=== PATIENT | male | born 1950 | race Caucasian/White ===

== ENCOUNTER 2019-05-07 16:27 | Inpatient (IN) | payer MEDICARE, OTHER ==
[2019-05-07] MEDS ORDERED: IPRATROPIUM-ALBUTEROL 3 ML NEB INHALATION STA (16:32)
[2019-05-07] MEDS ORDERED: LORazepam 2 MG/ML INJ IV STA (16:32)
--- NOTE | 2019-05-07 16:35 | ED ---
General Adult HPI - General Stated complaint: JHON Time Seen by Provider: 05/07/19 16:27 Source: RN notes reviewed - History of Present Illness Initial comments: This is a 61-year-old male who presents emergency room with past medical history significant for COPD per patient states he continues to smoke. Patient states on Tuesday started having difficulty breathing and difficulty breathing is gotten progressively worse per patient states he has a cough but is no worse than it normally is. Patient states is no sputum production. Patient denies any fever chills per patient denies any chest pain palpitations patient denies any abdominal pain patient denies any nausea vomiting per patient denies any lightheadedness or dizziness. Patient with Dr. Frausto's office today and he was having a hard time breathing and he started to panic that point time and they called EMS to bring him into the emergency department. Patient received 2 breathing treatments steroids on the way in and he states he is feeling better though he is very anxious. Patient states he normally does not have a history of anxiety. - Related Data Home Medications Medication Instructions Recorded Confirmed Albuterol Inhaler [Ventolin Hfa 1 - 2 puff INHALATION RT-Q4H PRN 05/07/19 05/07/19 Inhaler] Albuterol Nebulized [Ventolin 2.5 mg INHALATION RT-QID PRN 05/07/19 05/07/19 Nebulized] Aspirin EC [Ecotrin Low Dose] 81 mg PO DAILY 05/07/19 05/07/19 Budesonide/Formoterol Fumarate 2 puff INHALATION RT-BID 05/07/19 05/07/19 [Symbicort 160-4.5 Mcg Inhaler] Insulin Degludec [Tresiba 18 units SQ DAILY 05/07/19 05/07/19 Flextouch U-100] Losartan [Cozaar] 25 mg PO DAILY 05/07/19 05/07/19 Simvastatin [Zocor] 40 mg PO HS 05/07/19 05/07/19 Tadalafil [Cialis] 20 mg PO DIRECTED PRN 05/07/19 05/07/19 Triamcinolone 0.1% Cream [Kenalog 1 applic TOPICAL BID PRN 05/07/19 05/07/19 0.1% Cream] Allergies Allergy/AdvReac Type Severity Reaction Status Date / Time No Known Allergies Allergy Verified 05/07/19 17:20 Review of Systems ROS Statement: Those systems with pertinent positive or pertinent negative responses have been documented in the HPI. ROS Other: All systems not noted in ROS Statement are negative. General Exam - General Exam Comments Initial Comments: GENERAL: Patient is well-developed and well-nourished. Patient is nontoxic and well- hydrated and is in mild distress. ENT: Neck is soft and supple. No significant lymphadenopathy is noted. Oropharynx is clear. Moist mucous membranes. Neck has full range of motion without eliciting any pain. EYES: The sclera were anicteric and conjunctiva were pink and moist. Extraocular movements were intact and pupils were equal round and reactive to light. Eyelids were unremarkable. PULMONARY: Decreased breath sounds with some expiratory wheezing CARDIOVASCULAR: There is a regular rate and rhythm without any murmurs gallops or rubs. ABDOMEN: Soft and nontender with normal bowel sounds. No palpable organomegaly was noted. There is no palpable pulsatile mass. SKIN: Skin is clear with no lesions or rashes and otherwise unremarkable. NEUROLOGIC: Patient is alert and oriented x3. Cranial nerves II through XII are grossly intact. Motor and sensory are also intact. Normal speech, volume and content. Symmetrical smile. MUSCULOSKELETAL: Normal extremities with adequate strength and full range of motion. No lower extremity swelling or edema. No calf tenderness. LYMPHATICS: No significant lymphadenopathy is noted PSYCHIATRIC: Patient is very anxious Course Vital Signs 05/07/19 05/07/19 05/07/19 16:38 16:50 16:58 Temperature 98.5 F Pulse Rate 79 82 Respiratory 24 22 Rate Blood Pressure 168/96 O2 Sat by Pulse 94 L Oximetry 05/07/19 17:04 Temperature Pulse Rate 86 Respiratory Rate Blood Pressure O2 Sat by Pulse Oximetry Medical Decision Making - Medical Decision Making EKG shows no sinus rhythm at 82 bpm AR interval 238 QRS is 92 QT interval 378 QTC is 441 per patient's EKG shows no ST segment elevation or depression or T wave abnormalities are noted. I discussed smoking cessation for greater than 3 minutes. The risks of smoking were discussed with the patient including but not limited to risks of cancer, stroke, coronary artery disease and COPD. Also discussed with the patient were multiple methods of quitting smoking. Lastly we discussed the financial costs of smoking. Chest x-ray showed no acute normalities. New. Patient received breathing treatments emergency department and some steroids and was doing considerably better. I spoke with Dr. Jett Frausto agreed that the patient should be admitted overnight and get some fluids to help with his hyponatremia - Lab Data Result diagrams: 05/07/19 16:36 05/07/19 16:36 Lab Results 05/07/19 05/07/19 05/07/19 Range/Units 16:36 16:36 16:36 WBC 6.9 (3.8-10.6) k/uL RBC 4.51 (4.30-5.90) m/uL Hgb 14.4 (13.0-17.5) gm/dL Hct 43.1 (39.0-53.0) % MCV 95.4 (80.0-100.0) fL MCH 31.8 (25.0-35.0) pg MCHC 33.4 (31.0-37.0) g/dL RDW 13.3 (11.5-15.5) % Plt Count 218 (150-450) k/uL Neutrophils % 72 % Lymphocytes % 13 % Monocytes % 9 % Eosinophils % 2 % Basophils % 1 % Neutrophils # 5.0 (1.3-7.7) k/uL Lymphocytes # 0.9 L (1.0-4.8) k/uL Monocytes # 0.6 (0-1.0) k/uL Eosinophils # 0.1 (0-0.7) k/uL Basophils # 0.1 (0-0.2) k/uL PT 9.7 (9.0-12.0) sec INR 0.9 (<1.2) APTT 30.3 H (22.0-30.0) sec Sodium 125 L (137-145) mmol/L Potassium 4.7 (3.5-5.1) mmol/L Chloride 86 L (98-107) mmol/L Carbon Dioxide 27 (22-30) mmol/L Anion Gap 12 mmol/L BUN 12 (9-20) mg/dL Creatinine 0.60 L (0.66-1.25) mg/dL Est GFR (CKD-EPI)AfAm >90 (>60 ml/min/1.73 sqM) Est GFR (CKD-EPI)NonAf >90 (>60 ml/min/1.73 sqM) Glucose 126 H (74-99) mg/dL Calcium 9.2 (8.4-10.2) mg/dL Magnesium 2.0 (1.6-2.3) mg/dL Total Bilirubin 0.5 (0.2-1.3) mg/dL AST 34 (17-59) U/L ALT 29 (21-72) U/L Alkaline Phosphatase 72 (38-126) U/L Troponin I (0.000-0.034) ng/mL Total Protein 7.1 (6.3-8.2) g/dL Albumin 4.4 (3.5-5.0) g/dL 05/07/19 Range/Units 16:36 WBC (3.8-10.6) k/uL RBC (4.30-5.90) m/uL Hgb (13.0-17.5) gm/dL Hct (39.0-53.0) % MCV (80.0-100.0) fL MCH (25.0-35.0) pg MCHC (31.0-37.0) g/dL RDW (11.5-15.5) % Plt Count (150-450) k/uL Neutrophils % % Lymphocytes % % Monocytes % % Eosinophils % % Basophils % % Neutrophils # (1.3-7.7) k/uL Lymphocytes # (1.0-4.8) k/uL Monocytes # (0-1.0) k/uL Eosinophils # (0-0.7) k/uL Basophils # (0-0.2) k/uL PT (9.0-12.0) sec INR (<1.2) APTT (22.0-30.0) sec Sodium (137-145) mmol/L Potassium (3.5-5.1) mmol/L Chloride (98-107) mmol/L Carbon Dioxide (22-30) mmol/L Anion Gap mmol/L BUN (9-20) mg/dL Creatinine (0.66-1.25) mg/dL Est GFR (CKD-EPI)AfAm (>60 ml/min/1.73 sqM) Est GFR (CKD-EPI)NonAf (>60 ml/min/1.73 sqM) Glucose (74-99) mg/dL Calcium (8.4-10.2) mg/dL Magnesium (1.6-2.3) mg/dL Total Bilirubin (0.2-1.3) mg/dL AST (17-59) U/L ALT (21-72) U/L Alkaline Phosphatase (38-126) U/L Troponin I <0.012 (0.000-0.034) ng/mL Total Protein (6.3-8.2) g/dL Albumin (3.5-5.0) g/dL Disposition Clinical Impression: COPD with acute exacerbation Disposition: ADMITTED IP TO THIS HOSP Referrals: Sadiq Frausto MD [Primary Care Provider] - 1-2 days Time of Disposition: 18:58
[2019-05-07 16:46] LABS: Basophils # (A) 0.1 k/uL (0-0.2); Basophils % (A) 1 %; Eosinophils # (A) 0.1 k/uL (0-0.7); Eosinophils % (A) 2 %; HCT 43.1 % (39.0-53.0); HGB 14.4 gm/dL (13.0-17.5); Lymphocytes # (A) 0.9 k/uL (1.0-4.8); Lymphocytes % (A) 13 %; MCH 31.8 pg (25.0-35.0); MCHC 33.4 g/dL (31.0-37.0); MCV 95.4 fL (80.0-100.0); Mean Platelet Volume 6.8; Monocytes # (A) 0.6 k/uL (0-1.0); Monocytes % (A) 9 %; Neutrophils % (A) 72 %; Platelet Count 218 k/uL (150-450); RBC 4.51 m/uL (4.30-5.90); RDW 13.3 % (11.5-15.5); WBC 6.9 k/uL (3.8-10.6)
[2019-05-07 16:52] LABS: INR 0.9 (<1.2); Partial Thromboplastin Time 30.3 sec (22.0-30.0); Prothrombin Time 9.7 sec (9.0-12.0)
[2019-05-07 16:53] LABS: ALT 29 U/L (21-72); AST 34 U/L (17-59); African American GFR (CKD) >90 (>60 ml/min/1.73 sqM); Albumin 4.4 g/dL (3.5-5.0); Alkaline Phosphatase 72 U/L (38-126); Anion Gap 12 mmol/L; Blood Urea Nitrogen 12 mg/dL (9-20); Calcium 9.2 mg/dL (8.4-10.2); Carbon Dioxide 27 mmol/L (22-30); Chloride 86 mmol/L (98-107); Glucose 126 mg/dL (74-99); Potassium 4.7 mmol/L (3.5-5.1); Sodium 125 mmol/L (137-145); Total Bilirubin 0.5 mg/dL (0.2-1.3); Total Protein 7.1 g/dL (6.3-8.2)
--- NOTE | 2019-05-07 17:26 | XR ---
EXAMINATION TYPE: XR chest 2V DATE OF EXAM: 05/07/2019 COMPARISON: NONE HISTORY: Difficulty breathing TECHNIQUE: Frontal and lateral views of the chest are obtained. FINDINGS: Heart and mediastinum are normal. Lungs are clear of consolidation. There are no hilar mas ses. Costophrenic angles are clear. There are chest leads. IMPRESSION: No active cardiopulmonary disease. Normal heart.
[2019-05-07] MEDS: methylPREDNISolone SOD SUCCI 125 MG/2 ML VIAL IV SCH (23:26)
[2019-05-07 23:43] VITALS: BMI 24.7
--- NOTE | 2019-05-08 06:54 | P.HPIM ---
History of Present Illness H&P Date: 05/08/19 Chief Complaint: Dyspnea This is an admission history and physical on a 69-year-old white male with history of worsening emphysema. He came in to the office yesterday with pulse oximetry of 77% on room air. After evaluation in the emergency room the patient is admitted for COPD. The patient is now been stabilized and only has significant dyspnea on exertion. This is been happening for the last 3-4 days. No nausea, vomiting or diarrhea stated. Low-grade fever is stated. Significant anxiety is also noted. Review of Systems Constitutional: Denies chills, Denies fever Ears, nose, mouth and throat: Denies headache, Denies sore throat Respiratory: Reports cough, Reports dyspnea, Reports wheezing Gastrointestinal: Denies abdominal pain, Denies diarrhea, Denies nausea, Denies vomiting Musculoskeletal: Denies myalgias Integumentary: Denies pruritus, Denies rash Neurological: Denies numbness, Denies weakness Past Medical History Past Medical History: COPD, Diabetes Mellitus, Hyperlipidemia, Hypertension, Myocardial Infarction ([place]) Last Myocardial Infarction Date:: 2007 History of Any Multi-Drug Resistant Organisms: None Reported Past Surgical History: Heart Catheterization With Stent Additional Past Surgical History / Comment(s): bilateral shoulder, Date of Last Stent Placement:: 2007 Past Psychological History: No Psychological Hx Reported Smoking Status: Current every day smoker Past Alcohol Use History: Daily, Heavy Past Drug Use History: None Reported Medications and Allergies Home Medications Medication Instructions Recorded Confirmed Type Albuterol Inhaler [Ventolin Hfa 1 - 2 puff INHALATION RT-Q4H PRN 05/07/19 05/07/19 History Inhaler] Albuterol Nebulized [Ventolin 2.5 mg INHALATION RT-QID PRN 05/07/19 05/07/19 History Nebulized] Aspirin EC [Ecotrin Low Dose] 81 mg PO DAILY 05/07/19 05/07/19 History Budesonide/Formoterol Fumarate 2 puff INHALATION RT-BID 05/07/19 05/07/19 History [Symbicort 160-4.5 Mcg Inhaler] Insulin Degludec [Tresiba 18 units SQ DAILY 05/07/19 05/07/19 History Flextouch U-100] Losartan [Cozaar] 25 mg PO DAILY 09/23/19 09/23/19 History Simvastatin [Zocor] 40 mg PO HS 05/07/19 05/07/19 History Tadalafil [Cialis] 20 mg PO DIRECTED PRN 05/07/19 05/07/19 History Triamcinolone 0.1% Cream [Kenalog 1 applic TOPICAL BID PRN 05/07/19 05/07/19 History 0.1% Cream] Allergies Allergy/AdvReac Type Severity Reaction Status Date / Time No Known Allergies Allergy Verified 05/07/19 17:20 Physical Exam Vitals: Vital Signs Temp Pulse Pulse Resp BP BP Pulse Ox 05/08/19 06:10 98 F 89 18 156/93 96 05/08/19 04:37 131/73 96 05/08/19 03:00 90 18 164/79 96 05/07/19 23:44 89 20 05/07/19 21:00 98.7 F 89 20 182/90 94 L 05/07/19 19:45 99.5 F 82 18 157/89 94 L 05/07/19 19:00 82 18 94 L 05/07/19 17:04 86 05/07/19 16:58 82 05/07/19 16:50 22 05/07/19 16:38 98.5 F 79 24 168/96 94 L Intake and Output 05/07/19 05/07/19 05/08/19 14:59 22:59 06:59 Intake Total 660 Balance 660 Intake: Oral 660 Other: Voiding Method Urinal Weight 85.275 kg - Constitutional General appearance: mild distress - EENT Eyes: EOMI - Neck Neck: no lymphadenopathy - Respiratory Respiratory: bilateral: diminished - Cardiovascular Rhythm: regular Heart sounds: normal: S1, S2 Abnormal Heart Sounds: no S3 Gallop - Gastrointestinal General gastrointestinal: soft, no tenderness - Integumentary Integumentary: no cellulitis, no cyanotic - Neurologic Neurologic: CNII-XII intact - Musculoskeletal Musculoskeletal: gait normal - Psychiatric Psychiatric: A&O x's 3, appropriate affect Results CBC & Chem 7: 05/07/19 16:36 05/07/19 16:36 Labs: Abnormal Lab Results - Last 24 Hours (Table) 05/07/19 05/07/19 05/07/19 Range/Units 16:36 16:36 16:36 Lymphocytes # 0.9 L (1.0-4.8) k/uL APTT 30.3 H (22.0-30.0) sec Sodium 125 L (137-145) mmol/L Chloride 86 L (98-107) mmol/L Creatinine 0.60 L (0.66-1.25) mg/dL Glucose 126 H (74-99) mg/dL Thrombosis Risk Factor Assmnt - Choose All That Apply Any of the Below Risk Factors Present?: Yes Each Factor Represents 1 point: Abnormal pulmonary function (COPD) Other Risk Factors: Yes Each Risk Factor Represents 2 Points: Age 61-74 years Other congenital or acquired thrombophilia - If yes, enter type in comment: No Thrombosis Risk Factor Assessment Total Risk Factor Score: 3 Thrombosis Risk Factor Assessment Level: Moderate Risk Assessment and Plan (1) Acute stress reaction Current Visit: Yes Status: Acute Code(s): F43.0 - ACUTE STRESS REACTION SNOMED Code(s): 42430337 (2) Hypertension Current Visit: Yes Status: Acute Code(s): I10 - ESSENTIAL (PRIMARY) HYPERTENSION SNOMED Code(s): 57905701 (3) Diabetes Current Visit: Yes Status: Acute Code(s): E11.9 - TYPE 2 DIABETES MELLITUS WITHOUT COMPLICATIONS SNOMED Code(s): 63248598 (4) COPD with acute exacerbation Current Visit: Yes Status: Acute Code(s): J44.1 - CHRONIC OBSTRUCTIVE PULMONARY DISEASE W (ACUTE) EXACERBATION SNOMED Code(s): 106708371 Plan: Reconcile medications. Pulmonary nodule to be consulted. Check CBC and CMP in a.m. Place on appropriate sliding scale. Element of hyponatremia. Check urine osmolality and serum osmolality. Time with Patient: Greater than 30
[2019-05-08 07:30] LABS: Glucose,Whole Blood 232 mg/dL (75-99)
[2019-05-08] MEDS: IPRATROPIUM-ALBUTEROL 3 ML NEB INHALATION PRN ×3 (07:31→23:41)
[2019-05-08] MEDS: INSULIN ASPART (NovoLOG) 100 UNIT/ML VIAL SQ SCH ×3 (07:50→18:42)
[2019-05-08] MEDS: methylPREDNISolone SOD SUCCI 125 MG/2 ML VIAL IV SCH ×4 (07:51→23:50)
[2019-05-08] MEDS ORDERED: LORazepam 2 MG/ML INJ IV PRN ×3 (08:51)
[2019-05-08] MEDS: LOSARTAN 25 MG TAB PO SCH (10:13)
[2019-05-08] MEDS: ASPIRIN 81 MG PO SCH (10:13)
[2019-05-08 12:04] LABS: Glucose,Whole Blood 344 mg/dL (75-99)
[2019-05-08] MEDS: INSULIN DETEMIR (LEVEMIR) 100 UNIT/ML SYR SQ SCH (12:15)
--- NOTE | 2019-05-08 13:06 | P.CRDCN ---
History of Present Illness History of present illness: This is a pleasant 61-year-old male past medical history significant for coronary artery disease status post stent placement to the proximal RCA in 2008, hypertension, dyslipidemia, diabetes mellitus, COPD, chronic nicotine dependence and regular daily alcohol intake. He has followed in the office in the past with Dr. Carty however has not been to the office since 2016. He u nderwent cardiac catheterization in 2008 which revealed left main with no significant disease, LAD with no significant disease, circumflex with no significant disease and a 40-50% in-stent restenosis of the previously stented midportion of the RCA. We have been asked to see him in consultation secondary to shortness of breath. He was in his primary care physician's office yesterday and was noted to have a pulse ox of 77% on room air. He was sent to the hospital and underwent breathing treatments as well as steroids. He states that did mildly helped but he continued to have shortness of breath. He denies associated chest discomfort, nausea, vomiting, palpitations or dizziness. He does state over the previous few months he has noticed increasing fatigue and he is taking more frequent naps. His exertional tolerance has diminished as well. He states he does continue to smoke and drink daily. He continues to feel short of breath at the time of my exam. EKG reveals right bundle branch block pattern with no acute ST or T wave abnormalities noted. Chest x-ray negative for an acute cardiopulmonary process. Laboratory data reviewed, CBC unremarkable, sodium 125, potassium 4.7, crea tinine 0.6, magnesium 2.0, cardiac enzymes negative 1. Current daily cardiac medications include aspirin 81 mg daily, losartan 25 mg daily and simvastatin 40 mg daily. At the time of my exam: CONSTITUTIONAL: Denies fever. Denies chills. EYES: Denies blurred vision. Denies vision changes. Denies eye pain. EARS, NOSE, MOUTH & THROAT: Denies headache. Denies sore throat. Denies ear pain. CARDIOVASCULAR: Denies chest pain. Complains of shortness of breath. Denies orthopnea. Denies PND. Denies palpitations. RESPIRATORY: Complains of cough. GASTROINTESTINAL: Denies abdominal pain. Denies diarrhea. Denies constipation. Denies nausea. Denies vomiting. MUSCULOSKELETAL: Denies myalgias. INTEGUMENTARY: Denies pruitis. Denies rash. NEUROLOGIC: Denies numbness. Denies tingling. Denies weakness. Complains of increased fatigue over the previous couple of weeks. PSYCHIATRIC: Denies anxiety. Denies depression. ENDOCRINE: Denies fatigue. Denies weight change. Denies polydipsia. Denies polyurina. GENITOURINARY: Denies burning, hematuria or urgency with micturation. HEMATOLOGIC: Denies history of anemia. Denies bleeding. Blood pressure 156/93 heart rate 92 afebrile maintaining oxygen saturation on nasal cannula GENERAL: This is a 69-year-old male in no apparent distress at the maegan e of my examination. HEENT: Head is atraumatic, normocephalic. Pupils are equal, round. Sclerae anic teric. Conjunctivae are clear. Mucous membranes of the mouth are moist. Neck is supple. There is no jugular venous distention. No carotid bruit is heard. LUNGS: Scattered rhonchi, diminished bilaterally faint expiratory wheeze. No ralesi. No chest wall tenderness is noted on palpation or with deep breathing. HEART: Regular rate and rhythm without murmurs, rubs or gallops. S1 and S2 heard. ABDOMEN: Soft, nontender. Bowel sounds are heard. No organomegaly noted. EXTREMITIES: No evidence of peripheral edema and no calf tenderness noted. VASCULAR: Radial and dorsalis pedis pulses palpated, no evidence of clubbing. NEUROLOGIC: Patient is awake, alert and oriented x3. ASSESSMENT Increasing shortness of breath, clinically euvolemic with no evidence to suggest heart failure exacerbation. Likely related to underlying COPD. Acute exacerbation of chronic COPD Hyponatremia History of coronary artery disease status post stent placement 2008 Hypertension Dyslipidemia Diabetes mellitus, uncontrolled PLAN Check lipid profile and second troponin to rule out an acute event. Obtain 2-D echocardiogram and Doppler study to assess cardiac structure and function. Ongoing medical management. Alcohol and smoking cessation recommended and discussed with the patient and his daughter. Prognosis guarded if he continues to abuse these two things. Thank you kindly for this consultation. Nurse Practitioner note has been reviewed, I agree with a documented findings and plan of care. Patient was seen and examined. Past Medical History Past Medical History: COPD, Diabetes Mellitus, Hyperlipidemia, Hypertension, Myocardial Infarction ([place]) Last Myocardial Infarction Date:: 2007 History of Any Multi-Drug Resistant Organisms: None Reported Past Surgical History: Heart Catheterization With Stent Additional Past Surgical History / Comment(s): bilateral shoulder, Date of Last Stent Placement:: 2007 Past Psychological History: No Psychological Hx Reported Smoking Status: Current every day smoker Past Alcohol Use History: Daily, Heavy Past Drug Use History: None Reported Medications and Allergies Home Medications Medication Instructions Recorded Confirmed Type Albuterol Inhaler [Ventolin Hfa 1 - 2 puff INHALATION RT-Q4H PRN 05/07/19 05/07/19 History Inhaler] Albuterol Nebulized [Ventolin 2.5 mg INHALATION RT-QID PRN 05/07/19 05/07/19 History Nebulized] Aspirin EC [Ecotrin Low Dose] 81 mg PO DAILY 05/07/19 05/07/19 History Budesonide/Formoterol Fumarate 2 puff INHALATION RT-BID 05/07/19 05/07/19 History [Symbicort 160-4.5 Mcg Inhaler] Insulin Degludec [Tresiba 18 units SQ DAILY 05/07/19 05/07/19 History Flextouch U-100] Losartan [Cozaar] 25 mg PO DAILY 05/07/19 05/07/19 History Simvastatin [Zocor] 40 mg PO HS 05/07/19 05/07/19 History Tadalafil [Cialis] 20 mg PO DIRECTED PRN 05/07/19 05/07/19 History Triamcinolone 0.1% Cream [Kenalog 1 applic TOPICAL BID PRN 05/07/19 05/07/19 History 0.1% Cream] Allergies Allergy/AdvReac Type Severity Reaction Status Date / Time No Known Allergies Allergy Verified 05/07/19 17:20 Physical Exam Vitals: Vital Signs Temp Pulse Pulse Resp BP BP Pulse Ox 05/08/19 07:42 92 05/08/19 07:31 88 05/08/19 06:10 98 F 89 18 156/93 96 05/08/19 04:37 131/73 96 05/08/19 03:00 90 18 164/79 96 05/07/19 23:44 89 20 05/07/19 21:00 98.7 F 89 20 182/90 94 L 05/07/19 19:45 99.5 F 82 18 157/89 94 L 05/07/19 19:00 82 18 94 L 05/07/19 17:04 86 05/07/19 16:58 82 05/07/19 16:50 22 05/07/19 16:38 98.5 F 79 24 168/96 94 L Intake and Output 05/07/19 05/08/19 05/08/19 22:59 06:59 14:59 Intake Total 660 Balance 660 Intake: Oral 660 Other: Voiding Method Urinal Weight 85.275 kg Results 05/07/19 16:36 05/07/19 16:36 Cardiac Enzymes 05/07/19 05/07/19 Range/Units 16:36 16:36 AST 34 (17-59) U/L Troponin I <0.012 (0.000-0.034) ng/mL Coagulation 05/07/19 Range/Units 16:36 PT 9.7 (9.0-12.0) sec APTT 30.3 H (22.0-30.0) sec CBC 05/07/19 Range/Units 16:36 WBC 6.9 (3.8-10.6) k/uL RBC 4.51 (4.30-5.90) m/uL Hgb 14.4 (13.0-17.5) gm/dL Hct 43.1 (39.0-53.0) % Plt Count 218 (150-450) k/uL Comprehensive Metabolic Panel 05/07/19 Range/Units 16:36 Sodium 125 L (137-145) mmol/L Potassium 4.7 (3.5-5.1) mmol/L Chloride 86 L (98-107) mmol/L Carbon Dioxide 27 (22-30) mmol/L BUN 12 (9-20) mg/dL Creatinine 0.60 L (0.66-1.25) mg/dL Glucose 126 H (74-99) mg/dL Calcium 9.2 (8.4-10.2) mg/dL AST 34 (17-59) U/L ALT 29 (21-72) U/L Alkaline Phosphatase 72 (38-126) U/L Total Protein 7.1 (6.3-8.2) g/dL Albumin 4.4 (3.5-5.0) g/dL Current Medications Generic Name Dose Route Start Last Admin Trade Name Freq PRN Reason Stop Dose Admin Albuterol/Ipratropium 3 ml 05/07/19 18:59 05/08/19 07:31 Duoneb 0.5 Mg-3 Mg/3 Ml Soln INHALATION 3 ml RT-Q4H PRN Administration Shortness Of Breath Or Wheezing Aspirin 81 mg 05/08/19 09:00 05/08/19 10:13 Aspirin PO 81 mg DAILY ADRIAN Administration Atorvastatin Calcium 20 mg 05/08/19 21:00 Lipitor PO HS ADRIAN Insulin Aspart 0 unit 05/08/19 07:30 05/08/19 12:15 Novolog SQ 8 unit AC-TID ADRIAN Administration Protocol Insulin Detemir 18 unit 05/08/19 09:00 05/08/19 12:15 Levemir SQ 18 unit DAILY ADRIAN Administration Lorazepam 1 mg 05/08/19 08:51 Ativan IV Q2HR PRN CIWA 8 or 9 Lorazepam 1 mg 05/08/19 08:51 Ativan IV Q1HR PRN CIWA 10 to 15 Lorazepam 2 mg 05/08/19 08:51 Ativan IV 05/10/19 08:51 Q10M PRN CIWA 16 or higher Losartan Potassium 25 mg 05/08/19 09:00 05/08/19 10:13 Cozaar PO 25 mg DAILY ADRIAN Administration Methylprednisolone Sodium Succinate 60 mg 05/08/19 00:00 05/08/19 12:14 Solu-Medrol IV 60 mg Q6HR ADRIAN Administration Thiamine HCl 100 mg 05/08/19 17:30 Vitamin B-1 PO BID-W/MEALS ADRIAN Intake and Output 05/07/19 05/08/19 05/08/19 22:59 06:59 14:59 Intake Total 660 Balance 660 Intake: Oral 660 Other: Voiding Method Urinal Weight 85.275 kg 05/07/19 16:36 05/07/19 16:36
[2019-05-08 14:00] LABS: Cholesterol 180 mg/dL (<200); HDL Cholesterol 110 mg/dL (40-60); LDL Cholesterol,Calculated 60 mg/dL (0-99); Triglycerides 52 mg/dL (<150)
[2019-05-08 16:12] LABS: African American GFR (CKD) >90 (>60 ml/min/1.73 sqM); Anion Gap 15 mmol/L; Blood Urea Nitrogen 24 mg/dL (9-20); Carbon Dioxide 21 mmol/L (22-30); Chloride 87 mmol/L (98-107); Glucose 271 mg/dL (74-99); Potassium 5.3 mmol/L (3.5-5.1); Sodium 123 mmol/L (137-145)
[2019-05-08] MEDS: PANTOPRAZOLE 40 MG TABLET PO SCH (17:04)
[2019-05-08] MEDS: NICOTINE 21MG/24HR PATCH TRANSDERM SCH (17:04)
[2019-05-08 17:08] LABS: Glucose,Whole Blood 335 mg/dL (75-99)
[2019-05-08] MEDS ORDERED: INSULIN ASPART (NovoLOG) 100 UNIT/ML VIAL SQ ONE (17:17)
--- NOTE | 2019-05-08 17:18 | CONS ---
CONSULTATION DATE OF SERVICE: 05/08/2019 HISTORY OF PRESENT ILLNESS: Patient is a 69-year-old male who was being seen in his doctor's office yesterday afternoon and had an acute episode of shortness of breath and anxiety. Subsequently EMS was called and patient was brought to the emergency room at [facility]. The patient states that Tuesday night, which was 2 days prior, when he was getting ready for bed he used his Symbicort and then took a respiratory treatment, which he does routinely before bed at night, and he had the same type of episode of acute shortness of breath, to the degree that he almost called 911, but it resolved on its own. Patient also states that he does smoke approximately one pack per day for 60 years and he also consumes approximately 6 to 8 beers daily, and then towards the late afternoon he starts to have worsening episodes of sneezing, congestion, runny nose and at times shortness of breath. Patient was also found to have hyponatremia in the emergency room, requiring further workup as well. PAST MEDICAL HISTORY: Past medical history is significant for: 1. Diabetes mellitus. 2. COPD. 3. Hyperlipidemia. 4. Hypertension. 5. CO. 6. Nicotine dependence. 7. ETOH. PAST SURGICAL HISTORY: Past surgical history is significant for: 1. Cardiac cath with stent. 2. Bilateral shoulder surgery. ALLERGIES: NO KNOWN DRUG ALLERGIES. MEDICATIONS: Medications patient is on at home include: 1. Kenalog cream topically b.i.d. p.r.n. 2. Tadalafil 20 mg p.o. as directed p.r.n. 3. Zocor 40 mg p.o. at bedtime. 4. Cozaar 25 mg p.o. daily. 5. Tresiba 18 units subcutaneously daily. 6. Symbicort 160/4.5 two puffs inhaled b.i.d. 7. Ecotrin low-dose aspirin 81 mg daily. 8. Ventolin via nebulizer 2.5 mg q.i.d. p.r.n. 9. His Ventolin inhaler 1 to 2 puffs q.4 hours p.r.n. FAMILY HISTORY: Mother is alive at the age of 90; does have COPD and is on home oxygen. Dad at the age of 72 from emphysema and CHF. SOCIAL HISTORY: Again, patient is a daily smoker; smokes one pack per day x60 years. Drinks 6 to 8 beers daily. Denies any illicit drug use. 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 Patient has no pets at home. No dogs, cats or birds. REVIEW OF SYSTEMS: GENERAL: Negative for any chills or fever. Patient does complain of about a 12-pound weight gain. HEENT: Negative for headaches, dizziness or lightheadedness. Denies any acute visual changes. Denies any difficulty hearing. Denies seasonal allergies, although does have this suspected type allergic reaction daily around 4:00 or 5:00 in the afternoon, which may be from hops in the beer that the patient is consuming. Patient denies any shortness of breath. Does complain of difficulty swallowing at times; when he eats too fast he will choke on his food. RESPIRATORY: Positive for shortness of breath with a productive cough for clear white sputum. Patient denies any hemoptysis. CARDIOVASCULAR: Negative for any chest pain or palpitations. GI: Negative for abdominal pain, nausea, vomiting. No constipation. Patient has intermittent loose stools. : Positive for difficulty initiating a stream. Denies any dysuria or hematuria. ENDOCRINE: Positive for diabetes mellitus. Denies any thyroid disease. MUSCULOSKELETAL: Negative for any joint pain. NEUROLOGIC: Negative for any history of seizures or neuropathy. PSYCHIATRIC: Positive for anxiety. PHYSICAL EXAMINATION: GENERAL: Pleasant 69-year-old male who is seen sitting up at the bedside. He is using accessory muscles to breathe. VITAL SIGNS: Temperature 98.2, heart rate 88, respiratory rate 16, blood pressure 150/83. Oxygen saturation is 92% on 2 L oxygen via nasal cannula. HEENT: Head is normocephalic, atraumatic. Pupils equal, round, react to light. Ears and nose: no discharge is noted. Mouth with moist mucous membranes. Mallampati class III. NECK: Supple. Trachea is midline. No lymphadenopathy. HEART: S1 and S2 are heard. Not tachycardic. LUNGS: Diminished breath sounds throughout with a prolonged expiratory phase and a wheeze on forced expiration. ABDOMEN: Soft. Bowel sounds are heard. EXTREMITIES: Trace edema to the left and no edema to the right. NEUROLOGIC: Patient is awake and alert. LABS: White count is 6.9, hemoglobin 14.4. Hematocrit is 43.1 with 218,000 platelets. PT is 9.7, INR 0.9, PTT is 30.3. Sodium is 125, potassium 4.7, chloride 86. CO2 is 27. Anion gap is 12. BUN is 12, creatinine 0.60. Glucose is 126. Calcium is 9.2. Magnesium is 2.0, total bilirubin 0.5, AST is 34, ALT is 29, alkaline phosphatase is 72. Troponins less than 0.012. Total protein 7.1, albumin 4.4. IMAGING: Chest x-ray shows no active cardiopulmonary disease; normal heart. IMPRESSION: 1. Acute dyspnea. 2. Suspected chronic obstructive pulmonary disease with acute exacerbation with a possible component of asthma. 3. Hyponatremia. 4. Diabetes mellitus. 5. Nicotine dependence. 6. Ethanol daily. PLAN: Supplemental oxygen to maintain saturations greater than or equal to 90%. Bronchodilators q.i.d. and p.r.n. Will add aerosolized steroids with Pulmicort 0.5 mg via nebulizer b.i.d. Agree with Solu-Medrol 60 mg IV q.6 hours. Will add peak flows to be checked daily. We will order a CT of the chest without contrast. GI and DVT prophylaxis. The patient was counseled on smoking cessation and that is highly recommended. Patient and family were also counseled on need for further pulmonary followup after upon discharge and also would benefit from a diagnostic sleep study for suspected untreated obstructive sleep apnea. We will repeat a BMP and follow patient closely with you, making further changes as necessary. We are following for Dr. Rebollar. Thank you for the consultation. MMODL / IJN: [id number] /
[2019-05-08] MEDS: THIAMINE 100 MG TAB PO SCH (18:23)
[2019-05-08] MEDS: IPRATROPIUM-ALBUTEROL 3 ML NEB INHALATION SCH (20:18)
[2019-05-08] MEDS: BUDESONIDE 0.5 MG/2 ML NEBU INHALATION SCH (20:18)
[2019-05-08] MEDS: ATORVASTATIN 20 MG TAB PO SCH (21:05)
[2019-05-08 21:16] LABS: Glucose,Whole Blood 328 mg/dL (75-99)
[2019-05-08] MEDS: HEPARIN SODIUM,PORCINE 5,000 UNIT/ML 1 ML VIAL SQ SCH (22:39)
--- NOTE | 2019-05-08 22:39 | CT ---
EXAMINATION TYPE: CT chest wo con DATE OF EXAM: 05/08/2019 COMPARISON: CT 6-[address] 08/24/2010 HISTORY: Shortness of breath. CT DLP: 412 mGycm. Automated Exposure Control for Dose Reduction was Utilized. TECHNIQUE: CT scan of the thorax is performed without IV contrast. FINDINGS: AIRWAYS AND LUNGS: The airways are clear. The lungs are well-expanded and clear of acute processes. H owever, moderate emphysematous changes are redemonstrated. The previously seen lung nodules are stabl e, except that the RUL 5 mm nodule is now 6.5 mm mean diameter. It is of soft tissue density. PLEURAL SPACES: Negative. MEDIASTINUM: Lack of IV contrast is noted to limit evaluation for mediastinal and especially hilar ad enopathy. There are no definitive greater than 1 cm hilar or mediastinal lymph nodes. No cardiomega ly or pericardial effusion is seen. Prominent left and right coronary calcifications are noted. The m ediastinum is otherwise unremarkable. OTHER: No additional significant abnormality is seen. IMPRESSION: 1) Moderate emphysematous changes redemonstrated. 2) Mildly increased RUL pulmonary nodule size, from 5.0 mm to 6.5 mm mean diameter.
[2019-05-09] MEDS: methylPREDNISolone SOD SUCCI 125 MG/2 ML VIAL IV SCH ×3 (06:34→17:05)
[2019-05-09] MEDS: BUDESONIDE 0.5 MG/2 ML NEBU INHALATION SCH ×2 (07:22→19:16)
[2019-05-09] MEDS: IPRATROPIUM-ALBUTEROL 3 ML NEB INHALATION SCH ×4 (07:22→19:16)
[2019-05-09 07:43] LABS: Glucose,Whole Blood 323 mg/dL (75-99)
[2019-05-09] MEDS: ASPIRIN 81 MG PO SCH (07:48)
[2019-05-09] MEDS: LOSARTAN 25 MG TAB PO SCH (07:48)
[2019-05-09] MEDS: INSULIN ASPART (NovoLOG) 100 UNIT/ML VIAL SQ SCH ×4 (07:48→22:10)
[2019-05-09] MEDS: THIAMINE 100 MG TAB PO SCH ×2 (07:48→17:05)
[2019-05-09] MEDS: INSULIN DETEMIR (LEVEMIR) 100 UNIT/ML SYR SQ SCH (07:48)
[2019-05-09] MEDS: PANTOPRAZOLE 40 MG TABLET PO SCH (07:48)
[2019-05-09] MEDS: HEPARIN SODIUM,PORCINE 5,000 UNIT/ML 1 ML VIAL SQ SCH ×3 (07:48→21:28)
[2019-05-09] MEDS: NICOTINE 21MG/24HR PATCH TRANSDERM SCH (07:49)
--- NOTE | 2019-05-09 09:42 | P.PN ---
Subjective Progress Note Date: 05/09/19 Principal diagnosis: Patient is essentially admitted for COPD. Still significant dyspnea. No significant voiding difficulties. No nausea, vomiting or diarrhea. Appetite seems nominal. Objective - Vital Signs Vital signs: Vital Signs Temp 97.8 F 05/09/19 07:00 Pulse 100 05/09/19 07:39 Resp 18 05/09/19 07:00 BP 144/55 05/09/19 07:00 Pulse Ox 97 05/09/19 07:00 Intake & Output 05/08/19 05/09/19 05/09/19 18:59 06:59 18:59 Intake Total 1380 360 Balance 1380 360 Intake: Oral 1380 360 Other: Voiding Method Toilet Toilet # Voids 2 3 - Constitutional General appearance: Present: average body habitus - Respiratory Respiratory: bilateral: wheezing - Cardiovascular Rhythm: regular Heart sounds: normal: S1, S2 Abnormal Heart Sounds: Absent: S3 Gallop - Gastrointestinal General gastrointestinal: Present: soft. Absent: tenderness - Musculoskeletal Musculoskeletal: Present: generalized weakness - Psychiatric Psychiatric: Present: A&O x's 3 - Labs CBC & Chem 7: 05/07/19 16:36 05/08/19 13:23 Labs: Abnormal Lab Results - Last 24 Hours (Table) 05/08/19 05/08/19 05/08/19 Range/Units 12:02 13:23 13:23 Sodium 123 L (137-145) mmol/L Potassium 5.3 H (3.5-5.1) mmol/L Chloride 87 L (98-107) mmol/L Carbon Dioxide 21 L (22-30) mmol/L BUN 24 H (9-20) mg/dL Glucose 271 H (74-99) mg/dL POC Glucose (mg/dL) 344 H (75-99) mg/dL HDL Cholesterol 110 H (40-60) mg/dL 05/08/19 05/08/19 05/09/19 Range/Units 16:55 21:15 07:38 Sodium (137-145) mmol/L Potassium (3.5-5.1) mmol/L Chloride (98-107) mmol/L Carbon Dioxide (22-30) mmol/L BUN (9-20) mg/dL Glucose (74-99) mg/dL POC Glucose (mg/dL) 335 H 328 H 323 H (75-99) mg/dL HDL Cholesterol (40-60) mg/dL Assessment and Plan (1) Acute stress reaction Current Visit: Yes Status: Acute Code(s): F43.0 - ACUTE STRESS REACTION SNOMED Code(s): 86503302 (2) Hypertension Current Visit: Yes Status: Acute Code(s): I10 - ESSENTIAL (PRIMARY) HYPERTENSION SNOMED Code(s): 81287515 (3) Diabetes Current Visit: Yes Status: Acute Code(s): E11.9 - TYPE 2 DIABETES MELLITUS WITHOUT COMPLICATIONS SNOMED Code(s): 04180254 (4) COPD with acute exacerbation Current Visit: Yes Status: Acute Code(s): J44.1 - CHRONIC OBSTRUCTIVE PULMONARY DISEASE W (ACUTE) EXACERBATION SNOMED Code(s): 508059462 Plan: Appreciate pulmonology consultation Check CBC and CMP in a.m. Place on appropriate sliding scale Time with Patient: Less than 30
--- NOTE | 2019-05-09 10:17 | ECHOF ---
Referral Reason:cp, sob MEASUREMENTS -------- HEIGHT: 182.9 cm WEIGHT: 85.3 kg BP: RVIDd: 3.1 cm (< 3.3) IVSd: 1.4 cm (0.6 - 1.1) LVIDd: 4.7 cm (3.9 - 5.3) LVPWd: 1.4 cm (0.6 - 1.1) IVSs: 1.7 cm LVIDs: 3.3 cm LVPWs: 1.6 cm LA Diam: 4.0 cm (2.7 - 3.8) LAESV Index (A-L): 22.36 ml/m Ao Diam: 3.2 cm (2.0 - 3.7) AV Cusp: 1.9 cm (1.5 - 2.6) LA Diam: 4.0 cm (2.7 - 3.8) MV EXCURSION: 20.477 mm (> 18.000) MV EF SLOPE: 96 mm/s (70 - 150) EPSS: 0.3 cm MV E Felipe: 0.60 m/s MV DecT: 247 ms MV A Felipe: 0.89 m/s MV E/A Ratio: 0.67 RAP: 5.00 mmHg RVSP: 16.18 mmHg TAPSE: 2.28 cm FINDINGS -------- Sinus rhythm. This was a technically adequate study. The left ventricular size is normal. There is mild concentric left ventricular hypertrophy. Overa ll left ventricular systolic function is normal with, an EF between 55 - 60 %. The diastolic fillin g pattern is normal for the age of the patient 15.12. The right ventricle is normal in size. Normal LA size by volume 22+/-6 ml/m2. The right atrial size is normal. There is mild aortic valve sclerosis. Mild mitral annular calcification present. Mild mitral regurgitation is present. Mild tricuspid regurgitation present. Right ventricular systolic pressure is normal at < 35 mmHg. There is no evidence of pulmonary hypertension. The pulmonic valve was not well visualized. Trace/mild (physiologic) pulmonic regurgitation. The aortic root size is normal. There is no pericardial effusion. CONCLUSIONS -------- 1. Sinus rhythm. 2. This was a technically adequate study. 3. The left ventricular size is normal. 4. There is mild concentric left ventricular hypertrophy. 5. Overall left ventricular systolic function is normal with, an EF between 55 - 60 %. 6. The diastolic filling pattern is normal for the age of the patient 15.12 7. Normal LA size by volume 22+/-6 ml/m2. 8. There is mild aortic valve sclerosis. 9. Mild mitral annular calcification present. 10. Mild mitral regurgitation is present. 11. Mild tricuspid regurgitation present. 12. Right ventricular systolic pressure is normal at < 35 mmHg. 13. Trace/mild (physiologic) pulmonic regurgitation. 14. The aortic root size is normal. 15. There is no pericardial effusion. SOFTWARE DEVELOPMENT COORDINATOR: Belén Leon RDCS
--- NOTE | 2019-05-09 11:22 | P.PN ---
Subjective This is a pleasant 61-year-old male past medical history significant for coronary artery disease status post stent placement to the proximal RCA in 2008, hypertension, dyslipidemia, diabetes mellitus, COPD, chronic nicotine dependence and regular daily alcohol intake. He is seen and examined sitting up at the side of the bed. He continues to feel quite short of breath. He is maintaining oxygen saturation on nasal cannula. Blood pressure 144/55 heart rate 100. He is also feeling jittery and his hands are shaking. He has just received a breathing treatment. He has been seen by pulmonary and a CT of his chest was obtained revealing a nodule in the RUL. Echocardiogram obtained and reviewed, normal LV systolic function. Laboratory data reviewed, sodium 123, potassium 5.3, creatinine 0.8, troponin negative x2, LDL 60. Currently maintained on aspirin 81 mg daily, atorvastatin 20 mg daily, IV steroids and updraft treatments. We'll start has been held for the primary care team secondary to hyperkalemia GENERAL: This is a 69-year-old male in no apparent distress at the time of my examination. HEENT: Head is atraumatic, normocephalic. Pupils are equal, round. Sclerae anicteric. Conjunctivae are clear. Mucous membranes of the mouth are moist. Neck is supple. There is no jugular venous distention. No carotid bruit is heard. LUNGS: Scattered rhonchi, diminished bilaterally faint expiratory wheeze. No rales. No chest wall tenderness is noted on palpation or with deep breathing. HEART: Regular rate and rhythm without murmurs, rubs or gallops. S1 and S2 heard. EXTREMITIES: No evidence of peripheral edema and no calf tenderness noted. ASSESSMENT Increasing shortness of breath, clinically euvolemic with no evidence to suggest heart failure exacerbation. Likely related to underlying COPD. Acute exacerbation of chronic COPD Hyponatremia History of coronary artery disease status post stent placement 2008 Hypertension Dyslipidemia Diabetes mellitus, uncontrolled PLAN Stable from a cardiac standpoint. Ongoing medical management with pulmonary and primary care team. We will follow as needed, please feel free to call with further questions or concerns. Follow-up with Dr. Carty upon discharge. Nurse Practitioner note has been reviewed, I agree with a documented findings and plan of care. Patient was seen and examined. Objective - Vital Signs Vital signs: Vital Signs Temp 97.8 F 05/09/19 07:00 Pulse 96 05/09/19 11:14 Resp 18 05/09/19 07:00 BP 144/55 05/09/19 07:00 Pulse Ox 97 05/09/19 07:00 Intake & Output 05/08/19 05/09/19 05/09/19 18:59 06:59 18:59 Intake Total 1380 360 Balance 1380 360 Intake: Oral 1380 360 Other: Voiding Method Toilet Toilet # Voids 2 3 - Labs CBC & Chem 7: 05/07/19 16:36 05/08/19 13:23 Labs: Abnormal Lab Results - Last 24 Hours (Table) 05/08/19 05/08/19 05/08/19 Range/Units 12:02 13:23 13:23 Sodium 123 L (137-145) mmol/L Potassium 5.3 H (3.5-5.1) mmol/L Chloride 87 L (98-107) mmol/L Carbon Dioxide 21 L (22-30) mmol/L BUN 24 H (9-20) mg/dL Glucose 271 H (74-99) mg/dL POC Glucose (mg/dL) 344 H (75-99) mg/dL HDL Cholesterol 110 H (40-60) mg/dL 05/08/19 05/08/19 05/09/19 Range/Units 16:55 21:15 07:38 Sodium (137-145) mmol/L Potassium (3.5-5.1) mmol/L Chloride (98-107) mmol/L Carbon Dioxide (22-30) mmol/L BUN (9-20) mg/dL Glucose (74-99) mg/dL POC Glucose (mg/dL) 335 H 328 H 323 H (75-99) mg/dL HDL Cholesterol (40-60) mg/dL
[2019-05-09 12:17] LABS: Glucose,Whole Blood 220 mg/dL (75-99)
--- NOTE | 2019-05-09 15:56 | PN ---
PROGRESS NOTE DATE OF SERVICE: 05/09/2019 This patient has been hemodynamically stable. He is less short of breath. On physical examination, blood pressure is 112/60, respiratory rate of 16, pulse rate 89, temperature 98.2. Oxygen saturation on room air is 95%. HEENT is unremarkable. Chest reveals prolonged exhalation with faint expiratory wheeze. Cardiovascular system reveals an S1, S2. Abdomen is soft. There is no edema. Sodium is 123, potassium 5.3, chloride 87, bicarb 21, BUN 24, creatinine 0.8. IMPRESSION AT THIS TIME: 1. Asthma with acute exacerbation. 2. Possible baseline chronic obstructive pulmonary disease. 3. Hyponatremia, etiology of which is unclear. 4. Lung nodules which are likely to be benign. Increase his activity level. Continue insulin and IV steroids. Will repeat his electrolytes today. MMODL / IJN: [id number] /
[2019-05-09 16:04] LABS: African American GFR (CKD) >90 (>60 ml/min/1.73 sqM); Anion Gap 9 mmol/L; Blood Urea Nitrogen 33 mg/dL (9-20); Calcium 10.1 mg/dL (8.4-10.2); Carbon Dioxide 29 mmol/L (22-30); Chloride 90 mmol/L (98-107); Glucose 78 mg/dL (74-99); Potassium 5.2 mmol/L (3.5-5.1); Sodium 128 mmol/L (137-145)
[2019-05-09 16:57] LABS: Glucose,Whole Blood 74 mg/dL (75-99)
[2019-05-09 16:57] LABS: Glucose,Whole Blood 65 mg/dL (75-99)
[2019-05-09] MEDS: SODIUM CHLORIDE 0.9% 1,000 ML IV SCH (18:02)
[2019-05-09 19:31] LABS: Hemoglobin A1C 8.4 % (4.0-6.0)
[2019-05-09 20:53] LABS: Glucose,Whole Blood 299 mg/dL (75-99)
[2019-05-09] MEDS: ATORVASTATIN 20 MG TAB PO SCH (21:28)
[2019-05-10] MEDS: methylPREDNISolone SOD SUCCI 125 MG/2 ML VIAL IV SCH ×2 (00:49→05:48)
[2019-05-10 02:18] LABS: Glucose,Whole Blood 175 mg/dL (75-99)
[2019-05-10] MEDS: SODIUM CHLORIDE 0.9% 1,000 ML IV SCH ×2 (05:49→10:10)
[2019-05-10 07:25] LABS: Glucose,Whole Blood 235 mg/dL (75-99)
[2019-05-10] MEDS: NICOTINE 21MG/24HR PATCH TRANSDERM SCH (07:30)
[2019-05-10] MEDS: PANTOPRAZOLE 40 MG TABLET PO SCH (07:30)
[2019-05-10] MEDS: ASPIRIN 81 MG PO SCH (07:31)
[2019-05-10] MEDS: INSULIN ASPART (NovoLOG) 100 UNIT/ML VIAL SQ SCH ×4 (07:31→20:41)
[2019-05-10] MEDS: THIAMINE 100 MG TAB PO SCH ×2 (07:31→17:10)
[2019-05-10] MEDS: LOSARTAN 25 MG TAB PO SCH (07:31)
[2019-05-10] MEDS: HEPARIN SODIUM,PORCINE 5,000 UNIT/ML 1 ML VIAL SQ SCH ×2 (07:31→20:37)
[2019-05-10] MEDS: INSULIN DETEMIR (LEVEMIR) 100 UNIT/ML SYR SQ SCH (07:32)
[2019-05-10] MEDS: BUDESONIDE 0.5 MG/2 ML NEBU INHALATION SCH ×2 (07:49→18:48)
[2019-05-10] MEDS: IPRATROPIUM-ALBUTEROL 3 ML NEB INHALATION SCH ×4 (07:49→18:48)
[2019-05-10 08:04] LABS: HCT 43.9 % (39.0-53.0); HGB 14.7 gm/dL (13.0-17.5); MCH 32.3 pg (25.0-35.0); MCHC 33.5 g/dL (31.0-37.0); MCV 96.3 fL (80.0-100.0); Mean Platelet Volume 6.7; Platelet Count 274 k/uL (150-450); RBC 4.56 m/uL (4.30-5.90); RDW 13.3 % (11.5-15.5); WBC 11.9 k/uL (3.8-10.6)
[2019-05-10 08:23] LABS: ALT 30 U/L (21-72); AST 24 U/L (17-59); African American GFR (CKD) >90 (>60 ml/min/1.73 sqM); Albumin 3.9 g/dL (3.5-5.0); Alkaline Phosphatase 68 U/L (38-126); Anion Gap 9 mmol/L; Blood Urea Nitrogen 22 mg/dL (9-20); Calcium 9.2 mg/dL (8.4-10.2); Carbon Dioxide 28 mmol/L (22-30); Chloride 92 mmol/L (98-107); Glucose 272 mg/dL (74-99); Potassium 5.4 mmol/L (3.5-5.1); Sodium 129 mmol/L (137-145); Total Bilirubin 0.7 mg/dL (0.2-1.3); Total Protein 6.4 g/dL (6.3-8.2)
[2019-05-10 11:40] LABS: Alt. alternata IgE Class CLASS 0; Alternaria alternata IgE <0.35 kU/L (<0.35); Asperg. fumagatus IgE <0.35 kU/L (<0.35); Asperg. fumagatus IgE Class CLASS 0; Bermuda Grass IgE 0.36 kU/L (<0.35); Birch(Com.Silvr) IgE <0.35 kU/L (<0.35); Birch(Com.Silvr) IgE Class CLASS 0; Cat Epith & Dander IgE <0.35 kU/L (<0.35); Cat Epith & Dander IgE Class CLASS 0; Clad herbarum IgE <0.35 kU/L (<0.35); Clad herbarum IgE Class CLASS 0; Cottonwood IgE 0.36 kU/L (<0.35); Dermato. Pteronyssinus Class CLASS 0; Dermato. Pteronyssinus IgE <0.35 kU/L (<0.35); Dermato. farinae IgE <0.35 kU/L (<0.35); Dermato. farinae IgE Class CLASS 0; Dog Dander IgE <0.35 kU/L (<0.35); Elm IgE 0.39 kU/L (<0.35); Maple (Box Elder) IgE 0.37 kU/L (<0.35); Maple (Box Elder) IgE Class CLASS I; Mountain Cedar IgE <0.35 kU/L (<0.35); Mountain Cedar IgE Class CLASS 0; Mouse Urine IgE Class CLASS 0; Nettle IgE <0.35 kU/L (<0.35); Nettle IgE Class CLASS 0; Oak IgE 0.37 kU/L (<0.35); Penicillium notatum IgE Class CLASS 0; Rough Marshelder IgE 0.37 kU/L (<0.35); Rough Marshelder IgE Class CLASS I; Timothy Grass IgE 0.37 kU/L (<0.35); White Ash IgE Class CLASS I
[2019-05-10 12:26] LABS: Glucose,Whole Blood 216 mg/dL (75-99)
[2019-05-10] MEDS: methylPREDNISolone SOD SUCCI 40 MG/ML 1 ML VIAL IV SCH (15:47)
[2019-05-10 16:45] LABS: Glucose,Whole Blood 82 mg/dL (75-99)
--- NOTE | 2019-05-10 19:27 | PN ---
PROGRESS NOTE DATE OF SERVICE: May 10, 2019. He is less short of breath and is doing significantly better overall. On physical examination, respiratory rate is 20, pulse 87, temperature 97.7, blood pressure 158/71. HEENT is unremarkable. Chest reveals prolonged exhalation, but otherwise clear. Cardiovascular system is S1, S2. Abdomen is soft. There is no edema. White count is 11.9, hemoglobin 14.7. Sodium is 129, potassium 5.4, chloride 92, bicarb 28, BUN 22, creatinine 0.68. Urine osmolality is 691. Urine sodium is low. IgE is 51 with positivity to several aeroallergens. IMPRESSION: At this time is: 1. Severe asthma with acute exacerbation. 2. Baseline chronic obstructive pulmonary disease. 3. Hyponatremia with hyperkalemia, etiology which is unclear. At this point in time: Keep the patient on steroids, bronchodilators, aerosolized steroids. From a pulmonary perspective, we will need an oral steroid taper upon discharge. Would consult Nephrology to further evaluate his hyperkalemia and hyponatremia. Depending on how he does, we should make further changes to his care. He was counseled regarding his condition and this approach in the presence of his family and they have a fair understanding of recommendations. MMODL / IJN: [id number] /
[2019-05-10 20:34] LABS: Glucose,Whole Blood 229 mg/dL (75-99)
[2019-05-10] MEDS: ATORVASTATIN 20 MG TAB PO SCH (20:37)
--- NOTE | 2019-05-10 21:01 | P.PN ---
Subjective Principal diagnosis: Patient is essentially admitted for COPD. Still significant dyspnea. No significant voiding difficulties. No nausea, vomiting or diarrhea. Appetite seems nominal. The patient has an element of hyponatremia. Urinary sodium is low. I do suspect he needs isotonic saline. Objective - Vital Signs Vital signs: Vital Signs Temp 97.7 F 05/10/19 14:15 Pulse 99 05/10/19 19:03 Resp 20 05/10/19 15:38 BP 158/71 05/10/19 14:15 Pulse Ox 95 05/10/19 14:15 Intake & Output 05/10/19 05/10/19 05/11/19 06:59 18:59 06:59 Intake Total 900 Output Total 200 Balance 700 Intake: Oral 900 Output: Urine 200 Other: Voiding Method Toilet Toilet # Voids 2 3 0 # Bowel Movements 0 0 - Constitutional General appearance: Present: average body habitus - EENT Eyes: Absent: abnormal pupil - Neck Neck: Present: lymphadenopathy - Respiratory Respiratory: bilateral: CTA - Cardiovascular Rhythm: regular Heart sounds: normal: S1, S2 Abnormal Heart Sounds: Absent: S3 Gallop - Gastrointestinal General gastrointestinal: Present: soft. Absent: tenderness - Neurologic Neurologic: Present: CNII-XII intact, focal deficits - Labs CBC & Chem 7: 05/10/19 07:38 05/10/19 07:38 Labs: Abnormal Lab Results - Last 24 Hours (Table) 05/09/19 05/10/19 05/10/19 Range/Units 11:01 02:13 07:15 WBC (3.8-10.6) k/uL Sodium (137-145) mmol/L Potassium (3.5-5.1) mmol/L Chloride (98-107) mmol/L BUN (9-20) mg/dL Glucose (74-99) mg/dL POC Glucose (mg/dL) 175 H 235 H (75-99) mg/dL [place] IgE Ab 0.36 H (<0.35) kU/L [place] Allergen IgE 0.39 H (<0.35) kU/L Maple ([place]) IgE 0.37 H (<0.35) kU/L [place] Allerg IgE Ab 0.37 H (<0.35) kU/L [place] IgE Ab 0.38 H (<0.35) kU/L [place] Grass IgE Ab 0.36 H (<0.35) kU/L [place] Grass IgE Ab 0.37 H (<0.35) kU/L Common Ragweed IgE Ab 0.36 H (<0.35) kU/L [place] ([place]) 0.37 H (<0.35) kU/L [place] Thistle IgE Ab 0.38 H (<0.35) kU/L Cockroach Allergen IgE 0.50 H (<0.35) kU/L 05/10/19 05/10/19 05/10/19 Range/Units 07:38 07:38 12:20 WBC 11.9 H (3.8-10.6) k/uL Sodium 129 L (137-145) mmol/L Potassium 5.4 H (3.5-5.1) mmol/L Chloride 92 L (98-107) mmol/L BUN 22 H (9-20) mg/dL Glucose 272 H (74-99) mg/dL POC Glucose (mg/dL) 216 H (75-99) mg/dL [place] IgE Ab (<0.35) kU/L [place] Allergen IgE (<0.35) kU/L Maple ([place]) IgE (<0.35) kU/L [place] Allerg IgE Ab (<0.35) kU/L [place] IgE Ab (<0.35) kU/L [place] Grass IgE Ab (<0.35) kU/L [place] Grass IgE Ab (<0.35) kU/L Common Ragweed IgE Ab (<0.35) kU/L [place] ([place]) (<0.35) kU/L [place] Thistle IgE Ab (<0.35) kU/L Cockroach Allergen IgE (<0.35) kU/L 05/10/19 Range/Units 20:16 WBC (3.8-10.6) k/uL Sodium (137-145) mmol/L Potassium (3.5-5.1) mmol/L Chloride (98-107) mmol/L BUN (9-20) mg/dL Glucose (74-99) mg/dL POC Glucose (mg/dL) 229 H (75-99) mg/dL [place] IgE Ab (<0.35) kU/L [place] Allergen IgE (<0.35) kU/L Maple ([place]) IgE (<0.35) kU/L [place] Allerg IgE Ab (<0.35) kU/L [place] IgE Ab (<0.35) kU/L [place] Grass IgE Ab (<0.35) kU/L [place] Grass IgE Ab (<0.35) kU/L Common Ragweed IgE Ab (<0.35) kU/L [place] ([place]) (<0.35) kU/L [place] Thistle IgE Ab (<0.35) kU/L Cockroach Allergen IgE (<0.35) kU/L Assessment and Plan (1) Acute stress reaction Current Visit: Yes Status: Acute Code(s): F43.0 - ACUTE STRESS REACTION SNOMED Code(s): 25481850 (2) Hypertension Current Visit: Yes Status: Acute Code(s): I10 - ESSENTIAL (PRIMARY) HYPER TENSION SNOMED Code(s): 83712684 (3) Diabetes Current Visit: Yes Status: Acute Code(s): E11.9 - TYPE 2 DIABETES MELLITUS WITHOUT COMPLICATIONS SNOMED Code(s): 31791968 (4) COPD with acute exacerbation Current Visit: Yes Status: Acute Code(s): J44.1 - CHRONIC OBSTRUCTIVE PULMONARY DISEASE W (ACUTE) EXACERBATION SNOMED Code(s): 047360929 (5) Hyponatremia Current Visit: Yes Status: Acute Code(s): E87.1 - HYPO-OSMOLALITY AND HYP ONATREMIA SNOMED Code(s): 96739976 Plan: Appreciate pulmonology consultation Check CBC and CMP in a.m. Place on appropriate sliding scale Wean off of normal saline today. Will decrease to 50.
[2019-05-11] MEDS: methylPREDNISolone SOD SUCCI 40 MG/ML 1 ML VIAL IV SCH ×3 (01:06→15:21)
[2019-05-11] MEDS: SODIUM CHLORIDE 0.9% 1,000 ML IV SCH (04:32)
[2019-05-11 07:20] LABS: Glucose,Whole Blood 204 mg/dL (75-99)
[2019-05-11] MEDS: PANTOPRAZOLE 40 MG TABLET PO SCH (07:40)
[2019-05-11] MEDS: NICOTINE 21MG/24HR PATCH TRANSDERM SCH (07:40)
[2019-05-11] MEDS: LOSARTAN 25 MG TAB PO SCH (07:40)
[2019-05-11] MEDS: THIAMINE 100 MG TAB PO SCH ×2 (07:40→17:15)
[2019-05-11] MEDS: HEPARIN SODIUM,PORCINE 5,000 UNIT/ML 1 ML VIAL SQ SCH ×2 (07:41→22:08)
[2019-05-11] MEDS: INSULIN ASPART (NovoLOG) 100 UNIT/ML VIAL SQ SCH ×4 (07:41→22:10)
[2019-05-11] MEDS: INSULIN DETEMIR (LEVEMIR) 100 UNIT/ML SYR SQ SCH (07:41)
[2019-05-11] MEDS: ASPIRIN 81 MG PO SCH (07:43)
[2019-05-11 08:32] LABS: ALT 26 U/L (21-72); AST 24 U/L (17-59); African American GFR (CKD) >90 (>60 ml/min/1.73 sqM); Albumin 3.9 g/dL (3.5-5.0); Alkaline Phosphatase 57 U/L (38-126); Anion Gap 7 mmol/L; Blood Urea Nitrogen 19 mg/dL (9-20); Carbon Dioxide 32 mmol/L (22-30); Chloride 91 mmol/L (98-107); Glucose 230 mg/dL (74-99); Potassium 5.2 mmol/L (3.5-5.1); Sodium 130 mmol/L (137-145); Total Bilirubin 0.9 mg/dL (0.2-1.3); Total Protein 6.5 g/dL (6.3-8.2)
[2019-05-11] MEDS: IPRATROPIUM-ALBUTEROL 3 ML NEB INHALATION SCH ×4 (09:16→19:24)
[2019-05-11] MEDS: BUDESONIDE 0.5 MG/2 ML NEBU INHALATION SCH ×2 (09:16→19:23)
--- NOTE | 2019-05-11 09:20 | P.PN ---
Subjective Principal diagnosis: Patient is essentially admitted for COPD. Still significant dyspnea. The patient seems more tachypnea today. No significant voiding difficulties. No nausea, vomiting or diarrhea. Appetite seems nominal. The patient has an element of hyponatremia. Urinary sodium is low. I do suspect he needs isotonic saline. Objective - Vital Signs Vital signs: Vital Signs Temp 98.2 F 05/11/19 07:00 Pulse 73 05/11/19 07:00 Resp 18 05/11/19 07:00 BP 164/53 05/11/19 07:00 Pulse Ox 90 L 05/11/19 07:00 Intake & Output 05/10/19 05/11/19 05/11/19 18:59 06:59 18:59 Intake Total 1000 Balance 1000 Intake: Oral 1000 Other: Voiding Method Toilet Toilet # Voids 3 1 # Bowel Movements 0 - Constitutional General appearance: Present: average body habitus, mild distress - EENT Eyes: Present: abnormal pupil - Neck Neck: Present: lymphadenopathy - Respiratory Respiratory: bilateral: CTA - Cardiovascular Rhythm: regular Heart sounds: normal: S1, S2 Abnormal Heart Sounds: Absent: S3 Gallop - Gastrointestinal General gastrointestinal: Present: soft. Absent: tenderness, umbilical hernia - Psychiatric Psychiatric: Present: A&O x's 3, intact judgment & insight - Labs CBC & Chem 7: 05/10/19 07:38 05/10/19 07:38 Labs: Abnormal Lab Results - Last 24 Hours (Table) 05/09/19 05/10/19 05/10/19 Range/Units 11:01 07:38 12:20 Sodium 129 L (137-145) mmol/L Potassium 5.4 H (3.5-5.1) mmol/L Chloride 92 L (98-107) mmol/L BUN 22 H (9-20) mg/dL Glucose 272 H (74-99) mg/dL POC Glucose (mg/dL) 216 H (75-99) mg/dL [place] IgE Ab 0.36 H (<0.35) kU/L [place] Allergen IgE 0.39 H (<0.35) kU/L Maple ([place]) IgE 0.37 H (<0.35) kU/L [place] Tree Allerg IgE Ab 0.37 H (<0.35) kU/L [place] IgE Ab 0.38 H (<0.35) kU/L [place] Grass IgE Ab 0.36 H (<0.35) kU/L [place] Grass IgE Ab 0.37 H (<0.35) kU/L Common Ragweed IgE Ab 0.36 H (<0.35) kU/L M[place]ann Elder (Rough) 0.37 H (<0.35) kU/L [place] Thistle IgE Ab 0.38 H (<0.35) kU/L Cockroach Allergen IgE 0.50 H (<0.35) kU/L 05/10/19 05/11/19 Range/Units 20:16 07:17 Sodium (137-145) mmol/L Potassium (3.5-5.1) mmol/L Chloride (98-107) mmol/L BUN (9-20) mg/dL Glucose (74-99) mg/dL POC Glucose (mg/dL) 229 H 204 H (75-99) mg/dL [place] IgE Ab (<0.35) kU/L [place] Allergen IgE (<0.35) kU/L Maple ([place]) IgE (<0.35) kU/L [place] Tree Allerg IgE Ab (<0.35) kU/L [place] IgE Ab (<0.35) kU/L [place] Grass IgE Ab (<0.35) kU/L [place] Grass IgE Ab (<0.35) kU/L Common Ragweed IgE Ab (<0.35) kU/L [place] Elder ([place]ough) (<0.35) kU/L [place] Thistle IgE Ab (<0.35) kU/L Cockroach Allergen IgE (<0.35) kU/L Assessment and Plan (1) Acute stress reaction Current Visit: Yes Status: Acute Code(s): F43.0 - ACUTE STRESS REACTION SNOMED Code(s): 19304192 (2) Hypertension Current Visit: Yes Status: Acute Code(s): I10 - ESSENTIAL (PRIMARY) HYPERTENSION SNOMED Code(s): 74947785 (3) Diabetes Current Visit: Yes Status: Acute Code(s): E11.9 - TYPE 2 DIABETES MELLITUS WITHOUT COMPLICATIONS SNOMED Code(s): 71083330 (4) COPD with acute exacerbation Current Visit: Yes Status: Acute Code(s): J44.1 - CHRONIC OBSTRUCTIVE PULMONARY DISEASE W (ACUTE) EXACERBATION SNOMED Code(s): 629002578 (5) Hyponatremia Current Visit: Yes Status: Acute Code(s): E87.1 - HYPO-OSMOLALITY AND HYPONATREMIA SNOMED Code(s): 54875534 Plan: Continue current regimen of Solu-Medrol. Appreciate nephrology input. Check CMP in a.m. Anticipate discharge in next 24-48 hours. Time with Patient: Less than 30
--- NOTE | 2019-05-11 11:07 | PN ---
PROGRESS NOTE He was seen again on 05/11/2019. He continues to have shortness of breath and seems slightly more short of breath than yesterday. PHYSICAL EXAMINATION: On physical examination, his vitals are stable. He is afebrile. His chest reveals expiratory wheezing. Cardiovascular system reveals an S1, S2. Abdomen is soft. There is no pedal edema. IMPRESSION AT THIS TIME: 1. Asthma with chronic obstructive pulmonary disease with acute exacerbation. 2. Allergic phenotype. 3. Hyponatremia and hyperkalemia, etiology which is unclear. At this point in time, continue IV steroids, bronchodilators aerosolized steroids. Increase his activity level. He may be a candidate for a biologic as an outpatient such as Xolair or Fasenra. We have briefly discussed that with him. LUISITO / JENNIFERN: [id number] /
[2019-05-11 11:44] LABS: Glucose,Whole Blood 180 mg/dL (75-99)
[2019-05-11 14:35] LABS: Alpha 1 Anti-Trypsin 173 mg/dL (90 - 200)
[2019-05-11 17:10] LABS: Glucose,Whole Blood 264 mg/dL (75-99)
--- NOTE | 2019-05-11 19:55 | CONS ---
CONSULTATION REASON FOR CONSULT: Hyponatremia. HISTORY OF PRESENT ILLNESS: Patient is a 69-year-old male who has a previous history of hyponatremia; however, patient states that his sodium has been within normal range for at least 5 to 6 years now. He does have a history of excessive intake of beer and alcohol. He was admitted to the hospital with complaints of shortness of breath. He is being treated for COPD exacerbation. Sodium was noted to be 125 mEq/L on initial admission. Patient is maintained on saline at 50 mL/hour. His sodium is up to 130 now. Urine osmolality was 691. However, random urine sodium was less than 10. PAST MEDICAL HISTORY: Past medical history is significant for: 1. Type 2 diabetes. 2. COPD. 3. Hyperlipidemia. 4. Hypertension. 5. History of coronary artery disease with coronary stent placement. PAST SURGICAL HISTORY: 1. Cardiac catheterization. 2. Coronary stent placement. SOCIAL HISTORY: Patient is an ongoing smoker. MEDICATIONS: Medications at home include: 1. Albuterol. 2. Aspirin. 3. Insulin. 4. Cozaar. 5. Zocor. ALLERGIES: NONE. PHYSICAL EXAMINATION: Patient is currently comfortable, awake. He is not in any acute distress. Blood pressure is 113/51, heart rate 61 per minute. He is afebrile. EXAMINATION OF THE HEART: S1 and S2. EXAMINATION OF LUNGS: Bilateral breath sounds are heard. ABDOMEN: Soft, non-tender. Examination of lower extremities shows no significant edema. FACILITY PLANNER exam is grossly intact. LABS: Labs show sodium 130, potassium 5.2, chloride 91, BUN 19, serum creatinine 0.69. Urine osmolality was 691, random urine sodium less than 10. ASSESSMENT: 1. Hyponatremia; appears to be hypovolemic, as it has improved with normal saline. I will continue with the 50 mL/hour of saline for now. Patient is encouraged to increase protein intake as well as outpatient. 2. Dyspnea secondary to chronic obstructive pulmonary disease exacerbation, currently improved. 3. Dyslipidemia. Continue with the Lipitor. 4. Hypertension, maintained on Cozaar. PLAN: Continue with normal saline for now. Encourage increased oral intake of protein. Repeat labs in a.m. Check TSH. Thank you for the consultation. Will continue to follow the patient with you during his hospitalization. MMODL / IJN: [id number] /
[2019-05-11 20:10] LABS: Glucose,Whole Blood 243 mg/dL (75-99)
[2019-05-11] MEDS: ATORVASTATIN 20 MG TAB PO SCH (22:09)
[2019-05-12] MEDS: methylPREDNISolone SOD SUCCI 40 MG/ML 1 ML VIAL IV SCH ×2 (01:38→08:06)
[2019-05-12] MEDS: SODIUM CHLORIDE 0.9% 1,000 ML IV SCH (01:40)
[2019-05-12 07:02] LABS: Glucose,Whole Blood 225 mg/dL (75-99)
[2019-05-12] MEDS: BUDESONIDE 0.5 MG/2 ML NEBU INHALATION SCH (07:40)
[2019-05-12] MEDS: IPRATROPIUM-ALBUTEROL 3 ML NEB INHALATION SCH ×2 (07:40→11:09)
[2019-05-12 07:45] LABS: ALT 31 U/L (21-72); AST 21 U/L (17-59); African American GFR (CKD) >90 (>60 ml/min/1.73 sqM); Albumin 3.9 g/dL (3.5-5.0); Alkaline Phosphatase 59 U/L (38-126); Anion Gap 8 mmol/L; Blood Urea Nitrogen 19 mg/dL (9-20); Carbon Dioxide 31 mmol/L (22-30); Chloride 91 mmol/L (98-107); Glucose 239 mg/dL (74-99); Potassium 4.8 mmol/L (3.5-5.1); Sodium 130 mmol/L (137-145); Total Protein 6.3 g/dL (6.3-8.2)
[2019-05-12] MEDS: HEPARIN SODIUM,PORCINE 5,000 UNIT/ML 1 ML VIAL SQ SCH (08:06)
[2019-05-12] MEDS: INSULIN ASPART (NovoLOG) 100 UNIT/ML VIAL SQ SCH ×2 (08:06→11:29)
[2019-05-12] MEDS: THIAMINE 100 MG TAB PO SCH (08:06)
[2019-05-12] MEDS: INSULIN DETEMIR (LEVEMIR) 100 UNIT/ML SYR SQ SCH (08:06)
[2019-05-12] MEDS: ASPIRIN 81 MG PO SCH (08:06)
[2019-05-12] MEDS: PANTOPRAZOLE 40 MG TABLET PO SCH (08:06)
[2019-05-12] MEDS: LOSARTAN 25 MG TAB PO SCH (08:07)
[2019-05-12] MEDS: NICOTINE 21MG/24HR PATCH TRANSDERM SCH (08:07)
[2019-05-12 11:15] LABS: Glucose,Whole Blood 234 mg/dL (75-99)
[2019-05-12 11:57] VITALS: BP 137/75; PULSE 89; RESP 18; TEMP 97.8
--- NOTE | 2019-05-12 14:23 | P.DS ---
Providers Date of admission: 05/08/19 13:50 Attending physician: Sadiq Frausto Consults: 05/08/19 11:06 Consult Physician Routine Consulting Provider: Jerod Rebollar Consult Reason/Comments: exacerbation of copd Do you want consulting provider notified?: Yes 05/08/19 11:09 Consult Physician Routine Consulting Provider: Tramaine Carty Consult Reason/Comments: shortness of breath Do you want consulting provider notified?: Yes 05/10/19 15:18 Consult Physician Urgent Consulting Provider: Maliha Melendez Consult Reason/Comments: elevated potassium and decreased sodium Do you want consulting provider notified?: Yes Primary care physician: Sadiq Frausto Hospital Course: Patient was treated aggressively exacerbation is clinically doing well will be discharged today. Patient will be discharged on weaning dose of steroids PHYSICAL EXAMINATION: GENERAL: The patient is alert and oriented x3, not in any acute distress. Well developed, well nourished. HEENT: Pupils are round and equally reacting to light. EOMI. No scleral icterus. No conjunctival pallor. Normocephalic, atraumatic. No pharyngeal erythema. No thyromegaly. CARDIOVASCULAR: S1 and S2 present. No murmurs, rubs, or gallops. PULMONARY: Chest is clear to auscultation, no wheezing or crackles. ABDOMEN: Soft, nontender, nondistended, normoactive bowel sounds. No palpable organomegaly. MUSCULOSKELETAL: No joint swelling or deformity. EXTREMITIES: No cyanosis, clubbing, or pedal edema. NEUROLOGICAL: Gross neurological examination did not reveal any focal deficits. SKIN: No rashes. Please refer to pulmonary dictation in Jett's dictation for further details of hospitalization course and other medical problems that were addressed. Plan - Discharge Summary Discharge Rx Participant: No New Discharge Prescriptions: New Nicotine 21Mg/24Hr Patch [Habitrol] 1 patch TRANSDERM DAILY #14 patch predniSONE 10 mg PO DAILY #30 tab Ranitidine HCl [Zantac] 150 mg PO BID #30 tablet Continue Albuterol Inhaler [Ventolin Hfa Inhaler] 1 - 2 puff INHALATION RT-Q4H PRN PRN Reason: Shortness Of Breath Triamcinolone 0.1% Cream [Kenalog 0.1% Cream] 1 applic TOPICAL BID PRN PRN Reason: Rash Insulin Degludec [Tresiba Flextouch U-100] 18 units SQ DAILY Budesonide/Formoterol Fumarate [Symbicort 160-4.5 Mcg Inhaler] 2 puff INHALATION RT-BID Tadalafil [Cialis] 20 mg PO DIRECTED PRN PRN Reason: E.D. Simvastatin [Zocor] 40 mg PO HS Losartan [Cozaar] 25 mg PO DAILY Aspirin EC [Ecotrin Low Dose] 81 mg PO DAILY Albuterol Nebulized [Ventolin Nebulized] 2.5 mg INHALATION RT-QID PRN PRN Reason: Shortness Of Breath Discharge Medication List Albuterol Inhaler [Ventolin Hfa Inhaler] 1 - 2 puff INHALATION RT-Q4H PRN 05/07/19 [History] Albuterol Nebulized [Ventolin Nebulized] 2.5 mg INHALATION RT-QID PRN 05/07/19 [History] Aspirin EC [Ecotrin Low Dose] 81 mg PO DAILY 05/07/19 [History] Budesonide/Formoterol Fumarate [Symbicort 160-4.5 Mcg Inhaler] 2 puff INHALATION RT-BID 05/07/19 [History] Insulin Degludec [Tresiba Flextouch U-100] 18 units SQ DAILY 05/07/19 [History] Losartan [Cozaar] 25 mg PO DAILY 05/07/19 [History] Simvastatin [Zocor] 40 mg PO HS 05/07/19 [History] Tadalafil [Cialis] 20 mg PO DIRECTED PRN 05/07/19 [History] Triamcinolone 0.1% Cream [Kenalog 0.1% Cream] 1 applic TOPICAL BID PRN 05/07/19 [History] Nicotine 21Mg/24Hr Patch [Habitrol] 1 patch TRANSDERM DAILY #14 patch 05/12/19 [Rx] Ranitidine HCl [Zantac] 150 mg PO BID #30 tablet 05/12/19 [Rx] predniSONE 10 mg PO DAILY #30 tab 05/12/19 [Rx] Follow up Appointment(s)/Referral(s): Tramaine Carty MD [STAFF PHYSICIAN] - 2 Weeks (Patient to call Dr. Carty's office Tuesday to schedule follow appointment. The office is closed at time of discharge. ) Sadiq Frausto MD [Primary Care Provider] - 3 Days (Patient to call Dr. Frausto's office Ehsan morning to schedule follow up appointment. The office is closed at time of discharge.) Patient Instructions/Handouts: Ranitidine (By mouth), Prednisone (By mouth), Nicotine (Into the mouth), COPD (Chronic Obstructive Pulmonary Disease) (DC) Discharge Disposition: HOME SELF-CARE
[2019-05-15 01:38] LABS: Alternaria Alternata IgG <2.0 mcg/mL (< 13.6); Aspergillus fumigatus IgG Not detected (Not detected); Aureobasidium pullulans IgG <2.0 mcg/mL (< 13.6); Cladosporium herbarium IgG 2.1 mcg/mL (< 14.7); Phoma ssp. IgG <2.0 mcg/mL (< 6.6); Saccaharomospora viridis Not detected (Not detected); Saccaharopoly. rectivirgula Not detected (Not detected)
--- NOTE | 2019-05-15 09:02 | CDI ---
Documentation Clarification Form Date: 05/15/19 From: Molly Chang Phone: If you have a question regarding this query, please contact Libertad Ramos at [phone] between 8am and 5pm. Admit Date: 05/08/2019 1:50:00 PM Patient Name: Vince Chamorro Visit Number: [id number] Discharge Date: 05/12/2019 12:55:00 PM ATTENTION: The Clinical Documentation Specialists (CDI) and [facility] Coding Staff appreciate your assistance in clarifying documentation. Please respond to the clarification below the line at the bottom and electronically sign. The CDI & [facility] Coding staff will review the response and follow-up if needed. Please note: Queries are made part of the Legal Health Record. If you have any questions, please contact the author of this message via ITS. Dr. Radha Logan The patient has diabetes, as indicated throughout the chart. Uncontrolled diabetes is documented in the cardiology consult note and progress note. History/Risk Factors: Hypertension and hyperlipidemia. Clinical Indicators: Elevated glucose Glucose Levels: 344, 335 and 328 on 05/08, 323 on 05/09 Treatment: Novolog and Levemir In order to capture the severity of Illness and necessary documentation specificity, please clarify the uncontrolled diabetes: DM with hyperglycemia DM with hypoglycemia Other, please specify Unable to Determine DM with hyperglycemia MTDD
== END 2019-05-12 12:55 | disposition home or self-care (01) | DRG 191 ==
LOC: EC 16:27 → 4SSUR 19:00 → 4MS4W 05-08 13:06 → OBSVTOIN 05-08 13:50 → 3NMEDONC 05-11 17:37
PROVIDERS: ADMIT Family Medicine; ATTEND Family Medicine
DX: J43.9 Emphysema, unspecified (principal); E87.1 Hypo-osmolality and hyponatremia; J45.901 Unspecified asthma with (acute) exacerbation; E87.5 Hyperkalemia; E11.65 Type 2 diabetes mellitus with hyperglycemia; E78.5 Hyperlipidemia, unspecified; F17.210 Nicotine dependence, cigarettes, uncomplicated; E86.1 Hypovolemia; F41.9 Anxiety disorder, unspecified; F43.0 Acute stress reaction; I10 Essential (primary) hypertension; I25.10 Atherosclerotic heart disease of native coronary artery without angina pectoris; I25.2 Old myocardial infarction; I45.10 Unspecified right bundle-branch block; R91.8 Other nonspecific abnormal finding of lung field; Z79.4 Long term (current) use of insulin; Z79.51 Long term (current) use of inhaled steroids; Z79.82 Long term (current) use of aspirin; Z79.899 Other long term (current) drug therapy; Z95.5 Presence of coronary angioplasty implant and graft; Z71.6 Tobacco abuse counseling; Z82.49 Family history of ischemic heart disease and other diseases of the circulatory system; Z82.5 Family history of asthma and other chronic lower respiratory diseases
CPT/HCPCS: 36415; 71046; 71250; 80048; 80053; 80061; 82103; 82104; 82785; 83036; 83735; 83930; 83935; 84300; 84443; 84484; 85025; 85027; 85610; 85730; 86001; 86003; 86606; 86609; 93005; 93306; 94640; 94760; 96374; 96375; 96376; 99285; 99406

== ENCOUNTER 2023-01-04 16:39 | Inpatient (IN) | payer MEDICARE, OTHER ==
[2023-01-04] MEDS ORDERED: MORPHINE SULFATE 4 MG/ML SYRINGE IVP STA ×2 (17:06→21:21)
--- NOTE | 2023-01-04 17:09 | ED ---
General Adult HPI - General Chief complaint: Fall Stated complaint: fall - rt leg pain Time Seen by Provider: 01/04/23 16:47 Source: patient, EMS, RN notes reviewed Mode of arrival: EMS Limitations: physical limitation - History of Present Illness Initial comments: Patient is a pleasant 72-year-old male presenting to the emergency department following a fall. Patient admits to drinking alcohol and admits to frequently drinking alcohol. Patient states lately his legs have just been giving out on him. Patient did land on his right hip. Patient complains of pain of the right hip and unable to walk. Pain increases greatly with movement. No history of similar problems previously. Patient denies any other area of injury or concern. - Related Data Home Medications Medication Instructions Recorded Confirmed Albuterol Inhaler [Ventolin Hfa 1 - 2 puff INHALATION RT-Q4H PRN 05/07/19 01/04/23 Inhaler] Albuterol Nebulized [Ventolin 2.5 mg INHALATION RT-QID PRN 05/07/19 01/04/23 Nebulized] Aspirin EC [Ecotrin Low Dose] 81 mg PO DAILY 05/07/19 01/04/23 Budesonide/Formoterol Fumarate 2 puff INHALATION RT-BID 05/07/19 01/04/23 [Symbicort 160-4.5 Mcg Inhaler] Insulin Degludec [Tresiba 25 units SQ DAILY 05/07/19 01/04/23 Flextouch U-100 Pen] Simvastatin [Zocor] 40 mg PO DAILY 05/07/19 01/04/23 Ezetimibe [Zetia] 10 mg PO DAILY 01/04/23 01/04/23 Losartan Potassium 100 mg PO DAILY 01/04/23 01/04/23 Tiotropium 2.5 Mcg/Puff [Spiriva 1 puff INHALATION RT-DAILY 01/04/23 01/04/23 Respimat 2.5 Mcg] predniSONE 5 mg PO DAILY 01/04/23 01/04/23 Allergies Allergy/AdvReac Type Severity Reaction Status Date / Time No Known Allergies Allergy Verified 01/04/23 18:57 Review of Systems ROS Statement: Those systems with pertinent positive or pertinent negative responses have been documented in the HPI. ROS Other: All systems not noted in ROS Statement are negative. Constitutional: Denies: fever Eyes: Denies: eye pain ENT: Denies: ear pain Respiratory: Denies: cough Cardiovascular: Denies: chest pain Endocrine: Denies: fatigue Gastrointestinal: Denies: abdominal pain Genitourinary: Denies: urgency Musculoskeletal: Reports: as per HPI Neurological: Reports: as per HPI Past Medical History Past Medical History: COPD, Diabetes Mellitus, Hyperlipidemia, Hypertension, Myocardial Infarction ([place]) Last Myocardial Infarction Date:: 2007 History of Any Multi-Drug Resistant Organisms: None Reported Past Surgical History: Heart Catheterization With Stent Additional Past Surgical History / Comment(s): bilateral shoulder, Date of Last Stent Placement:: 2007 Past Psychological History: No Psychological Hx Reported Smoking Status: Former smoker Past Alcohol Use History: Daily, Heavy Past Drug Use History: None Reported General Exam Limitations: physical limitation General appearance: alert, in no apparent distress Head exam: Present: atraumatic Eye exam: Present: normal appearance, PERRL, EOMI Neck exam: Present: normal inspection. Absent: tenderness, meningismus Respiratory exam: Present: normal lung sounds bilaterally Cardiovascular Exam: Present: regular rate, normal rhythm Expanded Peripheral pulses: 2+: Posterior Tibialis (R), Dorsalis Pedis (R) GI/Abdominal exam: Present: soft. Absent: tenderness Extremities exam: Present: tenderness (Right hip tenderness. Distally the e xtremity is neurovascular intact. Limited range of motion and right hip secondary to pain) Neurological exam: Present: alert. Absent: motor sensory deficit Psychiatric exam: Present: normal affect, normal mood Skin exam: Present: normal color Course Vital Signs 01/04/23 01/04/23 01/04/23 16:50 17:59 18:55 Temperature 98.4 F Pulse Rate 83 91 87 Respiratory 24 24 24 Rate Blood Pressure 149/89 173/99 188/106 O2 Sat by Pulse 95 95 94 L Oximetry EKG Findings - EKG Results: EKG: interpreted by ERMD, normal axis, normal QRS, normal ST/T EKG shows: atrial fibrillation Medical Decision Making - Medical Decision Making Was pt. sent in by a medical professional or institution (, PA, BUTADIENE CONVERTER HELPER, urgent care, hospital, or usp...) When possible be specific @ -No Did you speak to anyone other than the patient for history (EMS, parent, family, police, friend...)? What history was obtained from this source @ -Family is present and helps provide history including encouraging patient to consider surgery Did you review nursing and triage notes (agree or disagree)? Why? @ -I reviewed and agree with nursing and triage notes Were old charts reviewed (outside hosp., previous admission, EMS record, old EKG, old radiological studies, urgent care reports/EKG's, usp records)? Report findings @ -No old charts were reviewed Differential Diagnosis (chest pain, altered mental status, abdominal pain women, abdominal pain men, vaginal bleeding, weakness, fever, dyspnea, syncope, headache, dizziness, GI bleed, back pain, seizure, CVA, palpatations, mental health)? @ -not applicable EKG interpreted by me (3pts min.). @ -As above X-rays interpreted by me (1pt min.). @ -Right hip and pelvis x-ray shows femoral neck fracture. Chest x-ray shows no acute process. CT interpreted by me (1pt min.). @ -Reports reviewed U/S interpreted by me (1pt. min.). @ -None done What testing was considered but not performed or refused? (CT, X-rays, U/S, labs)? Why? @ -None What meds were considered but not given or refused? Why? @ -None Did you discuss the management of the patient with other professionals (professionals i.e. , PA, BUTADIENE CONVERTER HELPER, lab, RT, psych nurse, social media project manager, day care home provider, teacher, protection officer, leather case finisher)? Give summary @ -Case was discussed with Dr. Rosas who will admit covering orthopedic call. He does request medical consult Was smoking cessation discussed for >3mins.? @ -No Was critical care preformed (if so, how long)? @ -No Were there social determinants of health that impacted care today? How? (Homelessness, low income, unemployed, alcoholism, drug addiction, transportation, low edu. Level, literacy, decrease access to med. care, [facility], rehab)? @ -No Was there de-escalation of care discussed even if they declined (Discuss DNR or withdrawal of care, Hospice)? DNR status @ -No What co-morbidities impacted this encounter? (DM, HTN, Smoking, COPD, CAD, Cancer, CVA, ARF, Chemo, Hep., AIDS, mental health diagnosis, sleep apnea, morbid obesity)? @ -None Was patient admitted / discharged? Hospital course, mention meds given and route, prescriptions, significant lab abnormalities, going to OR and other [facility] nedahlia info. @ -Patient reevaluated. Patient and family updated. Patient will be admitted for hip fracture. Patient will need medical consult and possible evaluation for A. fib Undiagnosed new problem with uncertain prognosis? @ -No Drug Therapy requiring intensive monitoring for toxicity (Heparin, Nitro, Insulin, Cardizem)? @ -No Were any procedures done? @ -No Diagnosis/symptom? @ -Hip fracture in A. fib, fall Acute, or Chronic, or Acute on Chronic? @ -Acute, acute, acute Uncomplicated (without systemic symptoms) or Complicated (systemic symptoms)? @ -default Side effects of treatment? @ -No Exacerbation, Progression, or Severe Exacerbation? @ -No Poses a threat to life or bodily function? How? (Chest pain, [place], [place], pneumonia, PE, COPD, DKA, ARF, appy, cholecystitis, CVA, Diverticulitis, Homicidal, Suicidal, threat to staff... and all critical care pts) @ -No - Lab Data Result diagrams: 01/04/23 18:00 01/04/23 18:00 Lab Results 01/04/23 01/04/23 01/04/23 Range/Units 18:00 18:00 18:00 WBC 4.5 (3.8-10.6) k/uL RBC 3.87 L (4.30-5.90) m/uL Hgb 11.8 L (13.0-17.5) gm/dL Hct 36.3 L (39.0-53.0) % MCV 93.9 (80.0-100.0) fL MCH 30.4 (25.0-35.0) pg MCHC 32.4 (31.0-37.0) g/dL RDW 12.9 (11.5-15.5) % Plt Count 165 (150-450) k/uL MPV 8.0 Neutrophils % (Manual) 76 % Lymphocytes % (Manual) 10 % Monocytes % (Manual) 14 % Neutrophils # (Manual) 3.42 (1.3-7.7) k/uL Lymphocytes # (Manual) 0.45 L (1.0-4.8) k/uL Monocytes # (Manual) 0.63 (0-1.0) k/uL Nucleated RBCs 0 (0-0) /100 WBC Manual Slide Review Performed RBC Morphology Normal PT 9.8 (9.0-12.0) sec INR 0.9 (<1.2) APTT 25.7 (22.0-30.0) sec Sodium 126 L (137-145) mmol/L Potassium 5.2 H (3.5-5.1) mmol/L Chloride 83 L (98-107) mmol/L Carbon Dioxide 36 H (22-30) mmol/L Anion Gap 7 mmol/L BUN 16 (9-20) mg/dL Creatinine 0.66 (0.66-1.25) mg/dL Est GFR (CKD-EPI)AfAm >90 (>60 ml/min/1.73 sqM) Est GFR (CKD-EPI)NonAf >90 (>60 ml/min/1.73 sqM) Glucose 275 H (74-99) mg/dL Calcium 8.7 (8.4-10.2) mg/dL Magnesium 1.9 (1.6-2.3) mg/dL Total Bilirubin 0.5 (0.2-1.3) mg/dL AST 35 (17-59) U/L ALT 30 (4-49) U/L Alkaline Phosphatase 54 (38-126) U/L Total Protein 6.1 L (6.3-8.2) g/dL Albumin 3.8 (3.5-5.0) g/dL Serum Alcohol 27 mg/dL Disposition Clinical Impression: Fall, Fracture of femoral neck, right, A-fib Disposition: ADMITTED IP TO THIS HOSP Is patient prescribed a controlled substance at d/c from ED?: No Referrals: Sadiq Frausto MD [Primary Care Provider] - 1-2 days Time of Disposition: 19:14
--- NOTE | 2023-01-04 18:22 | CT ---
EXAMINATION TYPE: CT brain mario gant con DATE OF EXAM: 01/04/2023 COMPARISON: None HISTORY: fall CT DLP: 1431.5 mGycm, Automated exposure control for dose reduction was used. CONTRAST: Patient injected with mL of . CT of the brain is performed utilizing 3 mm thick sections through the posterior fossa and 3 mm thick sections through the remaining calvarium. Study is performed within 24 hours of arrival to the hospital. No abnormal hyperdensity is present to suggest an acute intracranial hemorrhage. No mass lesion is evident. No acute infarcts are evident. Minimal periventricular white matter hypodensity may be present, like ly on the basis of chronic white matter ischemic changes. Ventricles and sulci are appropriate for the patient age. Paranasal sinuses and mastoid air cells within the [id number] are clear. IMPRESSIONS: 1. Mild chronic appearing periventricular white matter ischemic type changes. 2. No acute intracranial process. Follow-up MRI can be performed as clinically indicated. CT cervical spine. COMPARISON: None CT of the cervical spine is performed in the axial plane at 2 mm thick sections. Reconstructed image s in the coronal, and sagittal plane are reviewed on the computer. No acute fractures are evident. Scoliosis present with convexity to the right. Vertebral body heights are preserved. No spinal canal stenosis is evident. There is moderate narrowing of the left foramen at C3-4 due to a vertebral joint hypertrophy. Moderat e narrowing of the left C5-6 foramen is present from uncovertebral joint hypertrophy. Bilateral diane inal narrowing at C6-7 is present from uncovertebral joint hypertrophy. There is narrowing of disc height C6-7 and C7-T1. Milder narrowing of the C4-5 and C5-6 disc spaces a re present. IMPRESSIONS: 1. Scoliosis with degenerative disc changes and uncovertebral joint hypertrophy contributing to diane inal narrowing. 2. No acute osseous abnormality cervical spine
[2023-01-04 18:23] LABS: INR 0.9 (<1.2); Partial Thromboplastin Time 25.7 sec (22.0-30.0); Prothrombin Time 9.8 sec (9.0-12.0)
[2023-01-04 18:28] LABS: ALT 30 U/L (4-49); AST 35 U/L (17-59); African American GFR (CKD) >90 (>60 ml/min/1.73 sqM); Albumin 3.8 g/dL (3.5-5.0); Alcohol 27 mg/dL; Alkaline Phosphatase 54 U/L (38-126); Anion Gap 7 mmol/L; Blood Urea Nitrogen 16 mg/dL (9-20); Calcium 8.7 mg/dL (8.4-10.2); Carbon Dioxide 36 mmol/L (22-30); Chloride 83 mmol/L (98-107); Glucose 275 mg/dL (74-99); Magnesium 1.9 mg/dL (1.6-2.3); Non-African American GFR(CKD) >90 (>60 ml/min/1.73 sqM); Potassium 5.2 mmol/L (3.5-5.1); Sodium 126 mmol/L (137-145); Total Bilirubin 0.5 mg/dL (0.2-1.3); Total Protein 6.1 g/dL (6.3-8.2)
[2023-01-04 18:30] LABS: HCT 36.3 % (39.0-53.0); HGB 11.8 gm/dL (13.0-17.5); MCH 30.4 pg (25.0-35.0); MCHC 32.4 g/dL (31.0-37.0); MCV 93.9 fL (80.0-100.0); Platelet Count 165 k/uL (150-450); RBC 3.87 m/uL (4.30-5.90); RDW 12.9 % (11.5-15.5); WBC 4.5 k/uL (3.8-10.6)
--- NOTE | 2023-01-04 18:40 | XR ---
EXAMINATION TYPE: XR Hip RT and AP Pelvis DATE OF EXAM: 01/04/2023 COMPARISON: None HISTORY: Fall, pain TECHNIQUE: AP pelvis and two-view right hip FINDINGS: There is a fracture of the neck of the right hip. Femoral head articulates with the acetabu lum. There is mild joint space narrowing of the right hip joint space. No additional areas suspicious for fracture is evident. IMPRESSION: 1. Fracture right femoral neck.
--- NOTE | 2023-01-04 18:41 | XR ---
EXAMINATION TYPE: XR chest 1V DATE OF EXAM: 01/04/2023 COMPARISON: 05/07/2019 INDICATION: Weakness, right hip pain, fracture TECHNIQUE: Single frontal view of the chest is obtained. FINDINGS: The heart size is normal. The pulmonary vasculature is normal. The lungs are clear. IMPRESSION: 1. No acute pulmonary process.
[2023-01-04 18:59] LABS: Lymphocytes # (M) 0.45 k/uL (1.0-4.8); Monocytes # (M) 0.63 k/uL (0-1.0); Neutrophils # (M) 3.42 k/uL (1.3-7.7); Neutrophils % (M) 76 %; Nucleated Red Blood Cells 0 /100 WBC (0-0); RBC Morphology Normal; Total Cells Counted 100
[2023-01-04] MEDS ORDERED: LORazepam 2 MG/ML INJ IV PRN (19:15)
[2023-01-04] MEDS ORDERED: NALOXONE 0.4 MG/ML 1 ML VIAL IV PRN (19:16)
[2023-01-04] MEDS: MORPHINE SULFATE 4 MG/ML SYRINGE IV PRN (20:24)
[2023-01-05] MEDS ORDERED: ALBUTEROL NEBULIZED 2.5 MG/3 ML INHALATION PRN ×2 (00:46)
[2023-01-05 00:54] LABS: Glucose,Whole Blood 116 mg/dL (70-110)
[2023-01-05] MEDS ORDERED: DEXTROSE 50% SYRINGE 50 ML IVP PRN ×2 (00:54)
[2023-01-05] MEDS: SODIUM CHLORIDE 0.9% 1,000 ML IV SCH ×3 (01:17→22:12)
[2023-01-05] MEDS: HYDROmorphone 1 MG/ML 1 ML SYRINGE IVP PRN ×5 (01:19→23:10)
[2023-01-05 06:00] LABS: Glucose,Whole Blood 136 mg/dL (70-110)
[2023-01-05] MEDS: INSULIN ASPART (NovoLOG) 100 UNIT/ML VIAL SQ SCH ×4 (06:16→20:49)
[2023-01-05 06:31] LABS: ABG Base Excess 10.8 mmol/L; ABG HCO3 38 mmol/L (21-25); ABG Oxygen Saturation 86.8 % (94-97); ABG PH 7.25 (7.35-7.45); ABG PO2 60 mmHg (83-108); ABG TCO2 41 mmol/L (19-24); Allen Test Performed? Yes
[2023-01-05 06:38] LABS: ABG PCO2 88 mmHg (35-45)
--- NOTE | 2023-01-05 07:12 | P.CNPUL ---
History of Present Illness Consult date: 01/05/23 Requesting physician: Sadiq Frausto Reason for consult: COPD Chief complaint: Fall resulting in right hip fracture History of present illness: I am seeing this patient in new consultation today 01/05/2023 on the selective care unit after the patient had experienced a fall landing on his right hip. Patient is a 72-year-old male with a history very severe COPD. His FEV1 is 19% of predicted, and he is oxygen and steroid dependent. In addition, he has a history of CAD, hypertension, hyperlipidemia, type 2 diabetes, alcoholism. Patient apparently has frequent falls. He did fall, landing on his right hip yesterday, and came into the emergency room. X-ray showed an acute fracture of the right femoral neck. CT of the brain and C-spine without contrast showed no acute intracranial process, and some mild chronic appearing periventricular white matter ischemic type changes. Patient was admitted to the cardiac stepdown unit. He is currently lying in bed, lethargic and minimally responsive, on 40% Ventimask. Spo2 of 88%. Chest x-ray shows no acute cardiopulmonary process. I did order an ABG which shows a PaO2 of 60%, pCO2 of 88, pH of 7.25. The patient will be placed on a BiPAP with settings 10/5 and FiO2 of 40%. Patient's COPD appears active, and lung sounds are bronchospastic. Patient is on a combination of bronchodilators and Symbicort inhaler currently. We will monitor the patient's respiratory status closely. Review of Systems ROS unobtainable: due to mental status Past Medical History Past Medical History: COPD, Diabetes Mellitus, Hyperlipidemia, Hypertension, Myocardial Infarction ([place]) Last Myocardial Infarction Date:: 2007 History of Any Multi-Drug Resistant Organisms: None Reported Past Surgical History: Heart Catheterization With Stent Additional Past Surgical History / Comment(s): bilateral shoulder, Date of Last Stent Placement:: 2007 Smoking Status: Former smoker - Past Family History Mother Family Medical History: COPD Father Family Medical History: COPD Medications and Allergies Home Medications Medication Instructions Recorded Confirmed Type Albuterol Inhaler [Ventolin Hfa 1 - 2 puff INHALATION RT-Q4H PRN 05/07/19 01/04/23 History Inhaler] Albuterol Nebulized [Ventolin 2.5 mg INHALATION RT-QID PRN 05/07/19 01/04/23 History Nebulized] Aspirin EC [Ecotrin Low Dose] 81 mg PO DAILY 05/07/19 01/04/23 History Budesonide/Formoterol Fumarate 2 puff INHALATION RT-BID 05/07/19 01/04/23 History [Symbicort 160-4.5 Mcg Inhaler] Insulin Degludec [Tresiba 25 units SQ DAILY 05/07/19 01/04/23 History Flextouch U-100 Pen] Simvastatin [Zocor] 40 mg PO DAILY 05/07/19 01/04/23 History Ezetimibe [Zetia] 10 mg PO DAILY 01/04/23 01/04/23 History Losartan Potassium 100 mg PO DAILY 01/04/23 01/04/23 History Tiotropium 2.5 Mcg/Puff [Spiriva 1 puff INHALATION RT-DAILY 01/04/23 01/04/23 History Respimat 2.5 Mcg] predniSONE 5 mg PO DAILY 01/04/23 01/04/23 History Allergies Allergy/AdvReac Type Severity Reaction Status Date / Time No Known Allergies Allergy Verified 01/04/23 18:57 Physical Exam Vitals: Vital Signs Temp Pulse Pulse Resp BP BP Pulse Ox 01/05/23 04:10 90 L 01/05/23 03:37 97.7 F 101 H 21 133/82 90 L 01/05/23 02:00 101 H 24 01/05/23 01:30 91 L 01/05/23 01:10 91 L 01/05/23 01:00 97.8 F 97 94 24 160/90 84 L 01/05/23 00:55 100 01/04/23 23:18 92 19 135/94 90 L 01/04/23 22:26 91 16 150/79 92 L 01/04/23 21:33 91 19 150/83 92 L 01/04/23 19:33 86 22 173/99 93 L 01/04/23 18:55 87 24 188/106 94 L 01/04/23 17:59 91 24 173/99 95 01/04/23 16:50 98.4 F 83 24 149/89 95 FiO2 01/05/23 04:10 40 01/05/23 03:37 35 01/05/23 02:00 01/05/23 01:30 35 01/05/23 01:10 35 01/05/23 01:00 01/05/23 00:55 01/04/23 23:18 01/04/23 22:26 01/04/23 21:33 01/04/23 19:33 01/04/23 18:55 01/04/23 17:59 01/04/23 16:50 Intake and Output 01/04/23 01/04/23 01/05/23 14:59 22:59 06:59 Output Total 0 Balance 0 Output: Urine 0 Other: Voiding Method External Catheter # Voids 0 Weight 83.915 kg 84 kg GENERAL EXAM: Lethargic and minimally responsive, 72-year-old white male, appearing to be in some respiratory distress. HEAD: Normocephalic and atraumatic EYES: Normal reaction of pupils, equal size. NOSE: Clear with pink turbinates. THROAT: No erythema or exudates. NECK: No masses, no JVD. CHEST: No chest wall deformity. LUNGS: Equal air entry with expiratory wheezes and rhonchi. no crackles, or f ocal dullness. On 40% Ventimask. Respiratory rate is around 26 breast per minute and there are some retractions CVS: S1 and S2 normal with no audible murmur, regular rhythm. No extra heart sounds ABDOMEN: Abdomen is distended. No hepatosplenomegaly, active bowel sounds, no guarding or rigidity. SPINE: No scoliosis or deformity SKIN: No rashes CENTRAL NERVOUS SYSTEM: No focal deficits, tone is normal in all 4 extremities. EXTREMITIES: There is no peripheral edema, clubbing, or cyanosis. Peripheral pulses are intact. Results - Laboratory Findings CBC and BMP: 01/04/23 18:00 01/04/23 18:00 PT/INR, D-dimer PT 9.8 sec (9.0-12.0) 01/04/23 18:00 INR 0.9 (<1.2) 01/04/23 18:00 Abnormal lab findings: Abnormal Labs 01/04/23 01/04/23 01/04/23 18:00 18:00 18:00 RBC 3.87 L Hgb 11.8 L Hct 36.3 L Lymphocytes # (Manual) 0.45 L Sodium 126 L Potassium 5.2 H Chloride 83 L Carbon Dioxide 36 H Glucose 275 H POC Glucose (mg/dL) Plasma Lactic Acid Virgilio 2.3 H* Total Protein 6.1 L 01/05/23 01/05/23 00:52 05:58 RBC Hgb Hct Lymphocytes # (Manual) Sodium Potassium Chloride Carbon Dioxide Glucose POC Glucose (mg/dL) 116 H 136 H Plasma Lactic Acid Virgilio Total Protein - Diagnostic Findings Chest x-ray: image reviewed Assessment and Plan Assessment: fall, resulting in right femoral neck fracture. Acute exacerbation of patient's known very severe COPD. FEV1 is 19% of predicted, and he is normally oxygen and steroid dependent. Chest x-ray on arrival showed no acute cardiopulmonary process. Acute on chronic hypoxemic and hypercapnic respiratory failure secondary to above, will be placed on BiPAP Coronary artery disease hypertension hyperlipidemia type 2 diabetes alcoholism Plan: Patient's medications, labs, chest x-ray reviewed Start the patient on a combination of budesinide, formoterol, and DuoNeb inhalations. Start the patient on IV Solu-Medrol Initiate BiPAP settings of 10/5 and titrate FiO2 to maintain SPO2 between 88 - 92% Check for COVID-19 and influenza Surgical services were consulted regarding the patient's right femoral neck fracture. There is concern that the patient might have difficulty extubating following a surgical repair. Pain management [facility] protocol Novolog insulin ACHS to scale and Levemir insulin per admitting We will continue to follow I have personally seen and examined the patient, performed the documentation and the assessment and plan as written. Number of minutes spent on the visit:20 Time with Patient: Greater than 30
--- NOTE | 2023-01-05 07:47 | P.HPOR ---
History of Present Illness H&P Date: 01/05/23 Chief Complaint: Right hip pain. This is a 72-year-old male who presented to the emergency department yesterday after falling in his home. The patient was found to be intoxicated and x-rays revealed a femoral neck fracture of the right hip. He is admitted to our service for further evaluation and care. The patient is currently hypoxic and is on BiPAP. His blood gases this morning revealed a CO2 of 88 and pO2 of 60. The patient is acidotic. The patient has been seen by pulmonary. There is concern for inability to extubate after surgery with this patient. Past Medical History Past Medical History: COPD, Diabetes Mellitus, Hyperlipidemia, Hypertension, Myocardial Infarction ([place]) Last Myocardial Infarction Date:: 2007 History of Any Multi-Drug Resistant Organisms: None Reported Past Surgical History: Heart Catheterization With Stent Additional Past Surgical History / Comment(s): bilateral shoulder, Date of Last Stent Placement:: 2007 Smoking Status: Former smoker - Past Family History Mother Family Medical History: COPD Father Family Medical History: COPD Medications and Allergies Home Medications Medication Instructions Recorded Confirmed Type Albuterol Inhaler [Ventolin Hfa 1 - 2 puff INHALATION RT-Q4H PRN 05/07/19 01/04/23 History Inhaler] Albuterol Nebulized [Ventolin 2.5 mg INHALATION RT-QID PRN 05/07/19 01/04/23 History Nebulized] Aspirin EC [Ecotrin Low Dose] 81 mg PO DAILY 05/07/19 01/04/23 History Budesonide/Formoterol Fumarate 2 puff INHALATION RT-BID 05/07/19 01/04/23 History [Symbicort 160-4.5 Mcg Inhaler] Insulin Degludec [Tresiba 25 units SQ DAILY 05/07/19 01/04/23 History Flextouch U-100 Pen] Simvastatin [Zocor] 40 mg PO DAILY 05/07/19 01/04/23 History Ezetimibe [Zetia] 10 mg PO DAILY 01/04/23 01/04/23 History Losartan Potassium 100 mg PO DAILY 01/04/23 01/04/23 History Tiotropium 2.5 Mcg/Puff [Spiriva 1 puff INHALATION RT-DAILY 01/04/23 01/04/23 History Respimat 2.5 Mcg] predniSONE 5 mg PO DAILY 01/04/23 01/04/23 History Allergies Allergy/AdvReac Type Severity Reaction Status Date / Time No Known Allergies Allergy Verified 01/04/23 18:57 Physical Examination This is a 72-year-old male in some respiratory distress. He is on BiPAP. He has visible intercostal retractions. He is able to answer yes or no questions. He is resting with his right hip and knee in flexion. There is pain with any motion of the right hip. He is able to wiggle the foot and ankle and toes without difficulty. Neurovascular status to the lower extremities is intact. Results X-rays of the right hip and pelvis reveal a nondisplaced femoral neck fracture. - Labs Labs: Abnormal Lab Results - Last 24 Hours (Table) 01/04/23 01/04/23 01/04/23 Range/Units 18:00 18:00 18:00 RBC 3.87 L (4.30-5.90) m/uL Hgb 11.8 L (13.0-17.5) gm/dL Hct 36.3 L (39.0-53.0) % Lymphocytes # (Manual) 0.45 L (1.0-4.8) k/uL ABG pH (7.35-7.45) ABG pCO2 (35-45) mmHg ABG pO2 (83-108) mmHg ABG HCO3 (21-25) mmol/L ABG Total CO2 (19-24) mmol/L ABG O2 Saturation (94-97) % Sodium 126 L (137-145) mmol/L Potassium 5.2 H (3.5-5.1) mmol/L Chloride 83 L (98-107) mmol/L Carbon Dioxide 36 H (22-30) mmol/L Glucose 275 H (74-99) mg/dL POC Glucose (mg/dL) (70-110) mg/dL Plasma Lactic Acid Virgilio 2.3 H* (0.7-2.0) mmol/L Total Protein 6.1 L (6.3-8.2) g/dL 01/05/23 01/05/23 01/05/23 Range/Units 00:52 05:58 06:28 RBC (4.30-5.90) m/uL Hgb (13.0-17.5) gm/dL Hct (39.0-53.0) % Lymphocytes # (Manual) (1.0-4.8) k/uL ABG pH 7.25 L (7.35-7.45) ABG pCO2 88 H* (35-45) mmHg ABG pO2 60 L (83-108) mmHg ABG HCO3 38 H (21-25) mmol/L ABG Total CO2 41 H (19-24) mmol/L ABG O2 Saturation 86.8 L (94-97) % Sodium (137-145) mmol/L Potassium (3.5-5.1) mmol/L Chloride (98-107) mmol/L Carbon Dioxide (22-30) mmol/L Glucose (74-99) mg/dL POC Glucose (mg/dL) 116 H 136 H (70-110) mg/dL Plasma Lactic Acid Virgilio (0.7-2.0) mmol/L Total Protein (6.3-8.2) g/dL H & H 01/04/23 Range/Units 18:00 Hgb 11.8 L (13.0-17.5) gm/dL Hct 36.3 L (39.0-53.0) % Coagulation 01/04/23 Range/Units 18:00 INR 0.9 (<1.2) Result Diagrams: 01/04/23 18:00 01/04/23 18:00 Assessment and Plan (1) Fall Current Visit: Yes Status: Acute Code(s): W19.XXXA - UNSPECIFIED FALL, INITIAL ENCOUNTER SNOMED Code(s): 7447299 (2) Fracture of femoral neck, right Current Visit: Yes Status: Acute Code(s): S72.001A - FRACTURE OF UNSP PART OF NECK OF RIGHT FEMUR, INIT SNOMED Code(s): 2757809 (3) Respiratory difficulty Current Visit: Yes Status: Acute Code(s): R06.03 - ACUTE RESPIRATORY DISTRESS SNOMED Code(s): 520915518 (4) COPD with acute exacerbation Current Visit: No Status: Acute Code(s): J44.1 - CHRONIC OBSTRUCTIVE PULMONARY DISEASE W (ACUTE) EXACERBATION SNOMED Code(s): 596980834 Plan: The clinical and x-ray findings are discussed with the patient and nursing staff. The patient is a poor surgical candidate. We will await evaluation by Dr. Edmondson today but we will likely cancel surgery today. He is to continue on bed rest until further recommendations.
[2023-01-05] MEDS: methylPREDNISolone SOD SUCCI 125 MG/2 ML VIAL IV SCH ×4 (07:53→23:09)
[2023-01-05] MEDS: EZETIMIBE 10 MG TAB PO SCH (07:54)
[2023-01-05] MEDS: ATORVASTATIN 20 MG TAB PO SCH (07:54)
[2023-01-05] MEDS: INSULIN DETEMIR (LEVEMIR) 100 UNIT/ML SYR SQ SCH (07:54)
[2023-01-05] MEDS: MULTIVITAMINS, THERA 1 EACH TAB PO SCH (07:54)
[2023-01-05] MEDS: PANTOPRAZOLE 40 MG/10 ML VIAL IV SCH (07:54)
[2023-01-05] MEDS: LOSARTAN 50 MG TAB PO SCH (07:55)
[2023-01-05] MEDS: ASPIRIN 81 MG PO SCH (07:55)
[2023-01-05] MEDS: THIAMINE 100 MG TAB PO SCH (07:55)
[2023-01-05 07:59] LABS: Basophils % (A) 0 %; Eosinophils % (A) 0 %; HGB 12.3 gm/dL (13.0-17.5); Lymphocytes % (A) 10 %; MCHC 31.6 g/dL (31.0-37.0); MCV 95.2 fL (80.0-100.0); Mean Platelet Volume 7.8; Monocytes # (A) 0.8 k/uL (0-1.0); Monocytes % (A) 8 %; Neutrophils # (A) 7.7 k/uL (1.3-7.7); Neutrophils % (A) 77 %; Platelet Count 191 k/uL (150-450); RBC 4.09 m/uL (4.30-5.90); RDW 13.1 % (11.5-15.5)
[2023-01-05 08:00] LABS: Prothrombin Time 10.3 sec (9.0-12.0)
[2023-01-05] MEDS ORDERED: SYMBICORT 160-4.5 MCG INHALER INHALATION SCH (08:00)
[2023-01-05] MEDS ORDERED: NON FORMULARY DRUG (Tiotropium 2.5 Mcg/Puff 10 PUFF Each) INHALATION SCH (08:00)
[2023-01-05 08:04] LABS: Albumin 4.1 g/dL (3.5-5.0); Calcium 8.8 mg/dL (8.4-10.2); Potassium 5.4 mmol/L (3.5-5.1); Total Bilirubin 0.6 mg/dL (0.2-1.3); Total Protein 6.6 g/dL (6.3-8.2)
--- NOTE | 2023-01-05 08:50 | P.CONS ---
History of Present Illness - Reason for Consult Consult date: 01/05/23 Medical management diabetes - Chief Complaint Fall with hip fracture - History of Present Illness This is a history and physical/consultation note on a 72-year-old white male with known history of poorly controlled diabetes most likely secondary to chronic alcoholism. Underlying history of COPD with severe poor FEV1. The patient fell yesterday at home and ended up fracturing her right hip computed tomography scan of the head was nominal but pelvis and hip x-rays did show right femoral fracture. Unfortunately, he has oxygen dependent and steroid dependent COPD. Pain control seems to be nominal. The patient was evaluated and is now on BiPAP. Oxygenation is poor. Review of Systems Constitutional: Denies chills, Denies fever Eyes: denies blurred vision, denies pain Ears, nose, mouth and throat: Denies headache, Denies sore throat Cardiovascular: Reports as per HPI Respiratory: Reports as per HPI, Reports home oxygen Gastrointestinal: Denies abdominal pain, Denies diarrhea, Denies nausea, Denies vomiting Musculoskeletal: Reports as per HPI, Denies myalgias Past Medical History Past Medical History: COPD, Diabetes Mellitus, Hyperlipidemia, Hypertension, Myocardial Infarction ([place]) Last Myocardial Infarction Date:: 2007 History of Any Multi-Drug Resistant Organisms: None Reported Past Surgical History: Heart Catheterization With Stent Additional Past Surgical History / Comment(s): bilateral shoulder, Date of Last Stent Placement:: 2007 Smoking Status: Former smoker - Past Family History Mother Family Medical History: COPD Father Family Medical History: COPD Medications and Allergies Home Medications Medication Instructions Recorded Confirmed Type Albuterol Inhaler [Ventolin Hfa 1 - 2 puff INHALATION RT-Q4H PRN 05/07/19 01/04/23 History Inhaler] Albuterol Nebulized [Ventolin 2.5 mg INHALATION RT-QID PRN 05/07/19 01/04/23 History Nebulized] Aspirin EC [Ecotrin Low Dose] 81 mg PO DAILY 05/07/19 01/04/23 History Budesonide/Formoterol Fumarate 2 puff INHALATION RT-BID 05/07/19 01/04/23 History [Symbicort 160-4.5 Mcg Inhaler] Insulin Degludec [Tresiba 25 units SQ DAILY 05/07/19 01/04/23 History Flextouch U-100 Pen] Simvastatin [Zocor] 40 mg PO DAILY 05/07/19 01/04/23 History Ezetimibe [Zetia] 10 mg PO DAILY 01/04/23 01/04/23 History Losartan Potassium 100 mg PO DAILY 01/04/23 01/04/23 History Tiotropium 2.5 Mcg/Puff [Spiriva 1 puff INHALATION RT-DAILY 01/04/23 01/04/23 History Respimat 2.5 Mcg] predniSONE 5 mg PO DAILY 01/04/23 01/04/23 History Allergies Allergy/AdvReac Type Severity Reaction Status Date / Time No Known Allergies Allergy Verified 01/04/23 18:57 Physical Exam Vitals: Vital Signs Temp Pulse Pulse Resp BP BP Pulse Ox 01/05/23 07:59 97.8 F 92 26 H 119/68 92 L 01/05/23 06:43 01/05/23 04:10 90 L 01/05/23 03:37 97.7 F 101 H 21 133/82 90 L 01/05/23 02:00 101 H 24 01/05/23 01:30 91 L 01/05/23 01:10 91 L 01/05/23 01:00 97.8 F 97 94 24 160/90 84 L 01/05/23 00:55 100 01/04/23 23:18 92 19 135/94 90 L 01/04/23 22:26 91 16 150/79 92 L 01/04/23 21:33 91 19 150/83 92 L 01/04/23 19:33 86 22 173/99 93 L 01/04/23 18:55 87 24 188/106 94 L 01/04/23 17:59 91 24 173/99 95 01/04/23 16:50 98.4 F 83 24 149/89 95 FiO2 01/05/23 07:59 40 01/05/23 06:43 40 01/05/23 04:10 40 01/05/23 03:37 35 01/05/23 02:00 01/05/23 01:30 35 01/05/23 01:10 35 01/05/23 01:00 01/05/23 00:55 01/04/23 23:18 01/04/23 22:26 01/04/23 21:33 01/04/23 19:33 01/04/23 18:55 01/04/23 17:59 01/04/23 16:50 Intake and Output 01/04/23 01/05/23 01/05/23 22:59 06:59 14:59 Output Total 0 Balance 0 Output: Urine 0 Other: Voiding Method External Catheter # Voids 0 Weight 83.915 kg 84 kg - Constitutional General appearance: mild distress - EENT Eyes: EOMI - Neck Neck: no lymphadenopathy - Respiratory Respiratory: bilateral: diminished - Cardiovascular Rhythm: regular Heart sounds: normal: S1, S2 Abnormal Heart Sounds: no S3 Gallop - Gastrointestinal General gastrointestinal: distended, no tenderness - Psychiatric Psychiatric: A&O x's 3 Results CBC & Chem 7: 01/05/23 07:33 01/05/23 07:33 Labs: Abnormal Lab Results - Last 24 Hours (Table) 01/04/23 01/04/23 01/04/23 Range/Units 18:00 18:00 18:00 RBC 3.87 L (4.30-5.90) m/uL Hgb 11.8 L (13.0-17.5) gm/dL Hct 36.3 L (39.0-53.0) % Lymphocytes # (Manual) 0.45 L (1.0-4.8) k/uL ABG pH (7.35-7.45) ABG pCO2 (35-45) mmHg ABG pO2 (83-108) mmHg ABG HCO3 (21-25) mmol/L ABG Total CO2 (19-24) mmol/L ABG O2 Saturation (94-97) % Sodium 126 L (137-145) mmol/L Potassium 5.2 H (3.5-5.1) mmol/L Chloride 83 L (98-107) mmol/L Carbon Dioxide 36 H (22-30) mmol/L BUN (9-20) mg/dL Glucose 275 H (74-99) mg/dL POC Glucose (mg/dL) (70-110) mg/dL Plasma Lactic Acid Virgilio 2.3 H* (0.7-2.0) mmol/L Total Protein 6.1 L (6.3-8.2) g/dL 01/05/23 01/05/23 01/05/23 Range/Units 00:52 05:58 06:28 RBC (4.30-5.90) m/uL Hgb (13.0-17.5) gm/dL Hct (39.0-53.0) % Lymphocytes # (Manual) (1.0-4.8) k/uL ABG pH 7.25 L (7.35-7.45) ABG pCO2 88 H* (35-45) mmHg ABG pO2 60 L (83-108) mmHg ABG HCO3 38 H (21-25) mmol/L ABG Total CO2 41 H (19-24) mmol/L ABG O2 Saturation 86.8 L (94-97) % Sodium (137-145) mmol/L Potassium (3.5-5.1) mmol/L Chloride (98-107) mmol/L Carbon Dioxide (22-30) mmol/L BUN (9-20) mg/dL Glucose (74-99) mg/dL POC Glucose (mg/dL) 116 H 136 H (70-110) mg/dL Plasma Lactic Acid Virgilio (0.7-2.0) mmol/L Total Protein (6.3-8.2) g/dL 01/05/23 01/05/23 Range/Units 07:33 07:33 RBC 4.09 L (4.30-5.90) m/uL Hgb 12.3 L (13.0-17.5) gm/dL Hct (39.0-53.0) % Lymphocytes # (Manual) (1.0-4.8) k/uL ABG pH (7.35-7.45) ABG pCO2 (35-45) mmHg ABG pO2 (83-108) mmHg ABG HCO3 (21-25) mmol/L ABG Total CO2 (19-24) mmol/L ABG O2 Saturation (94-97) % Sodium 130 L (137-145) mmol/L Potassium 5.4 H (3.5-5.1) mmol/L Chloride 88 L (98-107) mmol/L Carbon Dioxide 36 H (22-30) mmol/L BUN 23 H (9-20) mg/dL Glucose 115 H (74-99) mg/dL POC Glucose (mg/dL) (70-110) mg/dL Plasma Lactic Acid Virgilio (0.7-2.0) mmol/L Total Protein (6.3-8.2) g/dL Assessment and Plan (1) Alcoholism Current Visit: Yes Status: Acute Code(s): F10.20 - ALCOHOL DEPENDENCE, UNCOMPLICATED SNOMED Code(s): 5807571 (2) Fall Current Visit: Yes Status: Acute Code(s): W19.XXXA - UNSPECIFIED FALL, INITIAL ENCOUNTER SNOMED Code(s): 1372957 (3) Fracture of femoral neck, right Current Visit: Yes Status: Acute Code(s): S72.001A - FRACTURE OF UNSP PART OF NECK OF RIGHT FEMUR, INIT SNOMED Code(s): 4044963 (4) COPD with acute exacerbation Current Visit: No Status: Acute Code(s): J44.1 - CHRONIC OBSTRUCTIVE PULMONARY DISEASE W (ACUTE) EXACERBATION SNOMED Code(s): 361032472 (5) Diabetes Current Visit: No Status: Acute Code(s): E11.9 - TYPE 2 DIABETES MELLITUS WITHOUT COMPLICATIONS SNOMED Code(s): 59032475 (6) Smoker Current Visit: No Status: Acute Code(s): F17.200 - NICOTINE DEPENDENCE, UNSPECIFIED, UNCOMPLICATED SNOMED Code(s): 21528398 Plan: Multifactorial issues related to poor respiratory control. Appreciate pulmonology input. GI prophylaxis. Check CBC and CMP in a.m. Reconcile home medications as possible. Prognosis is guarded secondary to his underlying comorbidities. I will long discussion with the about possible outcomes.
[2023-01-05] MEDS ORDERED: predniSONE 5 MG TAB PO SCH (09:00)
[2023-01-05] MEDS: BUDESONIDE 1 MG/2 ML NEBU INHALATION SCH ×2 (09:13→21:14)
[2023-01-05] MEDS: FORMOTEROL FUMARATE 20 MCG/2 ML NEBU INHALATION SCH ×2 (09:13→21:14)
[2023-01-05] MEDS: IPRATROPIUM-ALBUTEROL 3 ML NEB INHALATION PRN ×4 (09:15→21:14)
[2023-01-05 11:43] LABS: Glucose,Whole Blood 118 mg/dL (70-110)
[2023-01-05] MEDS ORDERED: methylPREDNISolone SOD SUCCI 125 MG/2 ML VIAL IV SCH (12:00)
[2023-01-05 16:57] LABS: Glucose,Whole Blood 198 mg/dL (70-110)
[2023-01-05 20:01] LABS: Glucose,Whole Blood 209 mg/dL (70-110)
[2023-01-06] MEDS: HYDROmorphone 1 MG/ML 1 ML SYRINGE IVP PRN ×4 (02:49→19:31)
[2023-01-06 05:48] LABS: Glucose,Whole Blood 270 mg/dL (70-110)
[2023-01-06] MEDS: INSULIN ASPART (NovoLOG) 100 UNIT/ML VIAL SQ SCH ×4 (05:58→20:18)
[2023-01-06] MEDS: methylPREDNISolone SOD SUCCI 125 MG/2 ML VIAL IV SCH ×4 (05:58→23:19)
[2023-01-06] MEDS: IPRATROPIUM-ALBUTEROL 3 ML NEB INHALATION PRN ×4 (07:42→20:48)
[2023-01-06] MEDS: FORMOTEROL FUMARATE 20 MCG/2 ML NEBU INHALATION SCH ×2 (07:42→20:48)
[2023-01-06] MEDS: BUDESONIDE 1 MG/2 ML NEBU INHALATION SCH ×2 (07:42→20:48)
--- NOTE | 2023-01-06 08:31 | P.PN ---
Subjective Progress Note Date: 01/06/23 Principal diagnosis: Fall with hip fracture This is a 72-year-old male who was admitted after a fall at home. Patient was diagnosed with a right femoral fracture. He is a history of poorly controlled diabetes, alcoholism, and is oxygen dependent and steroid dependent COPD. At home patient is on 4 L of oxygen. Patient remains on BiPAP, pulmonology is not able to clear him for surgery at this time. Concern for extubation after surgery, and inability to tolerate. Patient is seen this morning laying in bed, reports pain is somewhat controlled. Still with tachypnea this morning. Patient remains on Solu-Medrol 60mh every 6 hours. Objective - Vital Signs Vital signs: Vital Signs Temp 98.1 F 01/06/23 04:00 Pulse 90 01/06/23 08:14 Resp 19 01/06/23 04:00 BP 149/76 01/06/23 04:00 Pulse Ox 92 L 01/06/23 04:00 FiO2 35 01/06/23 07:47 Intake & Output 01/05/23 01/06/23 01/06/23 18:59 06:59 18:59 Output Total 675 250 Balance -675 -250 Output: Urine 675 250 Uretheral ([place]) 675 Other: Voiding Method Indwelling Catheter - Constitutional General appearance: Present: cooperative - EENT Eyes: Present: PERRLA - Neck Neck: Present: normal ROM. Absent: lymphadenopathy, rigidity - Respiratory Respiratory: bilateral: wheezing - Cardiovascular Rhythm: regular Heart sounds: normal: S1, S2 - Gastrointestinal General gastrointestinal: Present: distended. Absent: tenderness - Integumentary Integumentary: Present: normal, normal turgor - Psychiatric Psychiatric: Present: A&O x's 3, appropriate affect, intact judgment & insight - Labs CBC & Chem 7: 01/05/23 07:33 01/05/23 07:33 Labs: Abnormal Lab Results - Last 24 Hours (Table) 01/05/23 01/05/23 01/05/23 Range/Units 07:33 11:30 16:41 POC Glucose (mg/dL) 118 H 198 H (70-110) mg/dL Troponin I 0.036 H* (0.000-0.034) ng/mL 01/05/23 01/06/23 Range/Units 19:59 05:47 POC Glucose (mg/dL) 209 H 270 H (70-110) mg/dL Troponin I (0.000-0.034) ng/mL Assessment and Plan (1) Alcoholism Current Visit: Yes Status: Acute Code(s): F10.20 - ALCOHOL DEPENDENCE, UNCOMPLICATED SNOMED Code(s): 8112634 (2) Fall Current Visit: Yes Status: Acute Code(s): W19.XXXA - UNSPECIFIED FALL, INITIAL ENCOUNTER SNOMED Code(s): 1058671 (3) Fracture of femoral neck, right Current Visit: Yes Status: Acute Code(s): S72.001A - FRACTURE OF UNSP PART OF NECK OF RIGHT FEMUR, INIT SNOMED Code(s): 8604066 (4) COPD with acute exacerbation Current Visit: No Status: Acute Code(s): J44.1 - CHRONIC OBSTRUCTIVE PULMONARY DISEASE W (ACUTE) EXACERBATION SNOMED Code(s): 863562674 (5) Diabetes Current Visit: No Status: Acute Code(s): E11.9 - TYPE 2 DIABETES MELLITUS WITHOUT COMPLICATIONS SNOMED Code(s): 40774524 (6) Smoker Current Visit: No Status: Acute Code(s): F17.200 - NICOTINE DEPENDENCE, UNSPECIFIED, UNCOMPLICATED SNOMED Code(s): 13295256 Plan: Check CBC and CMP in the morning. Appreciate multiple consultants input. Prognosis remains guarded. Patient seen and evaluated by nurse practitioner, physician in agreement with plan
--- NOTE | 2023-01-06 08:44 | P.PN ---
Subjective Progress Note Date: 01/06/23 Principal diagnosis: Right hip pain. Femoral neck fracture right hip. Acute respiratory failure. This is a 72-year-old male who presented to the emergency department on 01/04/2023 after falling in his home. The patient was found to be intoxicated and x-rays revealed a femoral neck fracture of the right hip. He is admitted to our service for further evaluation and care. The patient is currently hypoxic and is on BiPAP. His blood gases this morning revealed a CO2 of 88 and pO2 of 60. The patient is acidotic. The patient has been seen by pulmonary. There is concern for inability to extubate after surgery with this patient. 01/06/2023: The patient was evaluated by Dr. Edmondson yesterday who feels that the patient is not a surgical candidate at this time. Patient's is at bedside today. Patient is able to communicate a little better today. He continues on BiPAP. Objective - Vital Signs Vital signs: Vital Signs Temp 98.1 F 01/06/23 04:00 Pulse 90 01/06/23 08:14 Resp 19 01/06/23 04:00 BP 149/76 01/06/23 04:00 Pulse Ox 92 L 01/06/23 04:00 FiO2 35 01/06/23 07:47 Intake & Output 01/05/23 01/06/23 01/06/23 18:59 06:59 18:59 Output Total 675 250 Balance -675 -250 Output: Urine 675 250 Uretheral (Leger) 675 Other: Voiding Method Indwelling Catheter - Exam This is a pleasant 72-year-old male who is alert and oriented. is present at bedside. He continues on BiPAP. Exam of the right hip reveals that he is holding the leg with hip and knee flexion. He is able to move toes without difficulty. Pedal pulse is +1/4. - Labs CBC & Chem 7: 01/05/23 07:33 01/05/23 07:33 Labs: Abnormal Lab Results - Last 24 Hours (Table) 01/05/23 01/05/23 01/05/23 Range/Units 07:33 11:30 16:41 POC Glucose (mg/dL) 118 H 198 H (70-110) mg/dL Troponin I 0.036 H* (0.000-0.034) ng/mL 01/05/23 01/06/23 Range/Units 19:59 05:47 POC Glucose (mg/dL) 209 H 270 H (70-110) mg/dL Troponin I (0.000-0.034) ng/mL Assessment and Plan (1) Fall Current Visit: Yes Status: Acute Code(s): W19.XXXA - UNSPECIFIED FALL, INITIAL ENCOUNTER SNOMED Code(s): 2537855 (2) Fracture of femoral neck, right Current Visit: Yes Status: Acute Code(s): S72.001A - FRACTURE OF UNSP PART OF NECK OF RIGHT FEMUR, INIT SNOMED Code(s): 3082296 (3) Respiratory difficulty Current Visit: Yes Status: Acute Code(s): R06.03 - ACUTE RESPIRATORY DISTRESS SNOMED Code(s): 427270269 (4) COPD with acute exacerbation Current Visit: No Status: Acute Code(s): J44.1 - CHRONIC OBSTRUCTIVE PULMONARY DISEASE W (ACUTE) EXACERBATION SNOMED Code(s): 945044387 Plan: The clinical and x-ray findings are discussed with the patient and his The patient is a poor surgical candidate. We will continue to follow peripherally. If there are any changes in his medical condition to the point that he may have surgery please contact our office. He is to continue on bed rest until further notice.
[2023-01-06] MEDS: ATORVASTATIN 20 MG TAB PO SCH (08:51)
[2023-01-06] MEDS: THIAMINE 100 MG TAB PO SCH (08:51)
[2023-01-06] MEDS: LOSARTAN 50 MG TAB PO SCH (08:51)
[2023-01-06] MEDS: EZETIMIBE 10 MG TAB PO SCH (08:51)
[2023-01-06] MEDS: MULTIVITAMINS, THERA 1 EACH TAB PO SCH (08:51)
[2023-01-06] MEDS: ASPIRIN 81 MG PO SCH (08:52)
[2023-01-06] MEDS: LORazepam 2 MG/ML INJ IV PRN ×2 (08:52→23:23)
[2023-01-06] MEDS: PANTOPRAZOLE 40 MG/10 ML VIAL IV SCH (08:52)
[2023-01-06] MEDS: INSULIN DETEMIR (LEVEMIR) 100 UNIT/ML SYR SQ SCH (08:54)
[2023-01-06 09:02] LABS: HCT 34.5 % (39.0-53.0); HGB 10.9 gm/dL (13.0-17.5); Hypochromasia Slight; MCH 30.7 pg (25.0-35.0); MCHC 31.5 g/dL (31.0-37.0); MCV 97.7 fL (80.0-100.0); Mean Platelet Volume 8.2; Platelet Count 173 k/uL (150-450); RBC 3.53 m/uL (4.30-5.90); RDW 12.7 % (11.5-15.5); WBC 10.5 k/uL (3.8-10.6)
[2023-01-06 09:37] LABS: ALT 26 U/L (4-49); AST 31 U/L (17-59); African American GFR (CKD) >90 (>60 ml/min/1.73 sqM); Albumin 3.4 g/dL (3.5-5.0); Alkaline Phosphatase 53 U/L (38-126); Anion Gap 4 mmol/L; Blood Urea Nitrogen 35 mg/dL (9-20); Calcium 8.3 mg/dL (8.4-10.2); Carbon Dioxide 35 mmol/L (22-30); Chloride 92 mmol/L (98-107); Glucose 227 mg/dL (74-99); Non-African American GFR(CKD) 85 (>60 ml/min/1.73 sqM); Potassium 5.4 mmol/L (3.5-5.1); Sodium 131 mmol/L (137-145); Total Bilirubin 0.6 mg/dL (0.2-1.3); Total Protein 5.7 g/dL (6.3-8.2)
[2023-01-06 11:38] LABS: Glucose,Whole Blood 227 mg/dL (70-110)
--- NOTE | 2023-01-06 11:39 | P.PN ---
Subjective Progress Note Date: 01/06/23 Principal diagnosis: COPD exacerbation. I am seeing this patient in new consultation today 01/05/2023 on the selective care unit after the patient had experienced a fall landing on his right hip. Patient is a 72-year-old male with a history very severe COPD. His FEV1 is 19% of predicted, and he is oxygen and steroid dependent. In addition, he has a history of CAD, hypertension, hyperlipidemia, type 2 diabetes, alcoholism. Patient apparently has frequent falls. He did fall, landing on his right hip yesterday, and came into the emergency room. X-ray showed an acute fracture of the right femoral neck. CT of the brain and C-spine without contrast showed no acute intracranial process, and some mild chronic appearing periventricular white matter ischemic type changes. Patient was admitted to the cardiac stepdown unit. He is currently lying in bed, lethargic and minimally responsive, on 40% Ventimask. Spo2 of 88%. Chest x-ray shows no acute cardiopulmonary process. I did order an ABG which shows a PaO2 of 60%, pCO2 of 88, pH of 7.25. The patient will be placed on a BiPAP with settings 10/5 and FiO2 of 40%. Patient's COPD appears active, and lung sounds are bronchospastic. Patient is on a combination of bronchodilators and Symbicort inhaler currently. We will monitor the patient's respiratory status closely. Progress note dated 01/06/2023. The patient is seen in room 366. The patient fell and fractured his right hip. In my opinion, the patient is not stable for surgical intervention at this time. The patient remains on BiPAP, at 10/5 and 35%. The patient's getting saline at 75 mL an hour. The patient has been seen by orthopedics. Lab data includes a white count 10.5, he will been 10.9, hematocrit 34.5, with a normal platelet count. Sodium 131, potassium 5.4, chlorides 92, CO2 35, BUN 35, and creatinine 0.91. Albumin is 3.4. Objective - Vital Signs Vital signs: Vital Signs Temp 98.6 F 01/06/23 08:00 Pulse 90 01/06/23 08:14 Resp 18 01/06/23 08:00 BP 157/80 01/06/23 08:00 Pulse Ox 96 01/06/23 08:00 FiO2 35 01/06/23 08:00 Intake & Output 01/05/23 01/06/23 01/06/23 18:59 06:59 18:59 Output Total 675 250 Balance -675 -250 Output: Urine 675 250 Uretheral ([place]er) 675 Other: Voiding Method Indwelling Catheter - Exam No acute distress, lethargic, currently on BiPAP therapy. HEENT examination is grossly unremarkable. Neck supple. Full range of motion. No adenopathy thyromegaly or neck vein distention. Cardiovascular examination reveals regular rhythm rate. S1-S2 normal. No S3 or S4. No discernible murmur noted. Heart sounds are distant. Heart rate is 90 bpm. Lungs reveal scattered bilateral rhonchi and wheezes. No crackles. Breath sounds equal, but diminished throughout. Saturations are 90%. Abdomen soft bowel sounds are heard. No masses or tenderness. Extremities are intact. No cyanosis clubbing or edema. Skin is without rash or lesion. Neurologic examination is unable to be evaluated at this time. - Labs CBC & Chem 7: 01/06/23 08:17 01/06/23 08:17 Labs: Abnormal Lab Results - Last 24 Hours (Table) 01/05/23 01/05/23 01/05/23 Range/Units 11:30 16:41 19:59 RBC (4.30-5.90) m/uL Hgb (13.0-17.5) gm/dL Hct (39.0-53.0) % Sodium (137-145) mmol/L Potassium (3.5-5.1) mmol/L Chloride (98-107) mmol/L Carbon Dioxide (22-30) mmol/L BUN (9-20) mg/dL Glucose (74-99) mg/dL POC Glucose (mg/dL) 118 H 198 H 209 H (70-110) mg/dL Calcium (8.4-10.2) mg/dL Total Protein (6.3-8.2) g/dL Albumin (3.5-5.0) g/dL 01/06/23 01/06/23 01/06/23 Range/Units 05:47 08:17 08:17 RBC 3.53 L (4.30-5.90) m/uL Hgb 10.9 L (13.0-17.5) gm/dL Hct 34.5 L (39.0-53.0) % Sodium 131 L (137-145) mmol/L Potassium 5.4 H (3.5-5.1) mmol/L Chloride 92 L (98-107) mmol/L Carbon Dioxide 35 H (22-30) mmol/L BUN 35 H (9-20) mg/dL Glucose 227 H (74-99) mg/dL POC Glucose (mg/dL) 270 H (70-110) mg/dL Calcium 8.3 L (8.4-10.2) mg/dL Total Protein 5.7 L (6.3-8.2) g/dL Albumin 3.4 L (3.5-5.0) g/dL Assessment and Plan Assessment: Status post fall, with a resultant right femoral neck fracture. Acute exacerbation of the patient's severe COPD. Patient currently on BiPAP therapy. Severe COPD, with an FEV1 that is 19% of predicted. Acute on chronic hypoxemic and hypercapnic respiratory failure. Coronary artery disease. Hypertension. Dyslipidemia. Type 2 diabetes mellitus. History of alcoholism. Plan: Plan dated 01/06/2023. In my opinion, at this time, the patient was not tolerating any surgical intervention, whether be with general anesthesia, or conscious sedation, with a spinal. I explained this to the patient's family member. This was also explained to her by orthopedics. At this point, we will just wait and watch, and hopefully, he turns around. We will repeat another blood gas in the morning. We will continue to follow the patient and make recommendations along the way. Prognosis is very guarded. Time with Patient: Less than 30
[2023-01-06 16:37] LABS: Glucose,Whole Blood 232 mg/dL (70-110)
[2023-01-06] MEDS: SODIUM CHLORIDE 0.9% 1,000 ML IV SCH (17:32)
[2023-01-06 20:17] LABS: Glucose,Whole Blood 211 mg/dL (70-110)
[2023-01-07] MEDS: methylPREDNISolone SOD SUCCI 125 MG/2 ML VIAL IV SCH ×4 (06:07→23:00)
[2023-01-07] MEDS: HYDROmorphone 1 MG/ML 1 ML SYRINGE IVP PRN ×3 (06:07→20:34)
[2023-01-07 06:08] LABS: Glucose,Whole Blood 152 mg/dL (70-110)
[2023-01-07] MEDS: INSULIN ASPART (NovoLOG) 100 UNIT/ML VIAL SQ SCH ×4 (06:09→19:54)
[2023-01-07] MEDS: SODIUM CHLORIDE 0.9% 1,000 ML IV SCH ×2 (06:10→08:52)
[2023-01-07] MEDS: FORMOTEROL FUMARATE 20 MCG/2 ML NEBU INHALATION SCH ×2 (07:36→22:00)
[2023-01-07] MEDS: BUDESONIDE 1 MG/2 ML NEBU INHALATION SCH ×2 (07:36→22:01)
--- NOTE | 2023-01-07 08:07 | P.PN ---
Subjective Principal diagnosis: Hip fracture fracture with COPD 72-year-old white male with known history diabetes also is him who essentially h ad right hip fracture. Unfortunately given his COPD, he is not cleared for any surgical intervention. Continues to be on BiPAP. Objective - Vital Signs Vital signs: Vital Signs Temp 98.3 F 01/07/23 03:15 Pulse 84 01/07/23 07:58 Resp 24 01/07/23 03:15 BP 143/84 01/07/23 03:15 Pulse Ox 92 L 01/07/23 03:15 FiO2 35 01/07/23 07:34 Intake & Output 01/06/23 01/07/23 01/07/23 18:59 06:59 18:59 Output Total 300 500 Balance -300 -500 Output: Urine 300 500 Other: Voiding Method Indwelling Catheter Indwelling Catheter - Constitutional General appearance: Present: cooperative, mild distress - EENT Eyes: Absent: abnormal pupil - Respiratory Respiratory: bilateral: rhonchi - Cardiovascular Rhythm: regular Heart sounds: normal: S1, S2 Abnormal Heart Sounds: Absent: S3 Gallop - Gastrointestinal General gastrointestinal: Present: distended - Integumentary Integumentary: Absent: cellulitis - Labs CBC & Chem 7: 01/06/23 08:17 01/06/23 08:17 Labs: Abnormal Lab Results - Last 24 Hours (Table) 01/06/23 01/06/23 01/06/23 Range/Units 08:17 08:17 08:17 RBC 3.53 L (4.30-5.90) m/uL Hgb 10.9 L (13.0-17.5) gm/dL Hct 34.5 L (39.0-53.0) % Sodium 131 L (137-145) mmol/L Potassium 5.4 H (3.5-5.1) mmol/L Chloride 92 L (98-107) mmol/L Carbon Dioxide 35 H (22-30) mmol/L BUN 35 H (9-20) mg/dL Glucose 227 H (74-99) mg/dL POC Glucose (mg/dL) (70-110) mg/dL Hemoglobin A1c 8.4 H (0.0-6.0) % Calcium 8.3 L (8.4-10.2) mg/dL Total Protein 5.7 L (6.3-8.2) g/dL Albumin 3.4 L (3.5-5.0) g/dL 01/06/23 01/06/23 01/06/23 Range/Units 11:36 16:35 20:16 RBC (4.30-5.90) m/uL Hgb (13.0-17.5) gm/dL Hct (39.0-53.0) % Sodium (137-145) mmol/L Potassium (3.5-5.1) mmol/L Chloride (98-107) mmol/L Carbon Dioxide (22-30) mmol/L BUN (9-20) mg/dL Glucose (74-99) mg/dL POC Glucose (mg/dL) 227 H 232 H 211 H (70-110) mg/dL Hemoglobin A1c (0.0-6.0) % Calcium (8.4-10.2) mg/dL Total Protein (6.3-8.2) g/dL Albumin (3.5-5.0) g/dL 01/07/23 Range/Units 06:07 RBC (4.30-5.90) m/uL Hgb (13.0-17.5) gm/dL Hct (39.0-53.0) % Sodium (137-145) mmol/L Potassium (3.5-5.1) mmol/L Chloride (98-107) mmol/L Carbon Dioxide (22-30) mmol/L BUN (9-20) mg/dL Glucose (74-99) mg/dL POC Glucose (mg/dL) 152 H (70-110) mg/dL Hemoglobin A1c (0.0-6.0) % Calcium (8.4-10.2) mg/dL Total Protein (6.3-8.2) g/dL Albumin (3.5-5.0) g/dL Assessment and Plan (1) Alcoholism Current Visit: Yes Status: Acute Code(s): F10.20 - ALCOHOL DEPENDENCE, UNCOMPLICATED SNOMED Code(s): 9776117 (2) Fall Current Visit: Yes Status: Acute Code(s): W19.XXXA - UNSPECIFIED FALL, INITIAL ENCOUNTER SNOMED Code(s): 1164413 (3) Fracture of femoral neck, right Current Visit: Yes Status: Acute Code(s): S72.001A - FRACTURE OF UNSP PART OF NECK OF RIGHT FEMUR, INIT SNOMED Code(s): 6218079 (4) COPD with acute exacerbation Current Visit: No Status: Acute Code(s): J44.1 - CHRONIC OBSTRUCTIVE PULMONARY DISEASE W (ACUTE) EXACERBATION SNOMED Code(s): 557090532 (5) Diabetes Current Visit: No Status: Acute Code(s): E11.9 - TYPE 2 DIABETES MELLITUS WITHOUT COMPLICATIONS SNOMED Code(s): 15265802 (6) Smoker Current Visit: No Status: Acute Code(s): F17.200 - NICOTINE DEPENDENCE, UNS PECIFIED, UNCOMPLICATED SNOMED Code(s): 53931685 Plan: Multifactorial issues related to poor respiratory control. Appreciate pulmonology input. GI prophylaxis. Check CBC and CMP in a.m. Hopefully turn drawn from a COPD perspective. At this point, he is not a surgical intervention candidate given his severity. Time with Patient: Less than 30
[2023-01-07 08:27] LABS: HCT 34.6 % (39.0-53.0); Hypochromasia Slight; MCH 30.7 pg (25.0-35.0); MCHC 31.7 g/dL (31.0-37.0); MCV 96.8 fL (80.0-100.0); Mean Platelet Volume 7.9; Platelet Count 190 k/uL (150-450); RBC 3.58 m/uL (4.30-5.90); RDW 12.9 % (11.5-15.5); WBC 11.9 k/uL (3.8-10.6)
[2023-01-07] MEDS: LOSARTAN 50 MG TAB PO SCH (08:37)
[2023-01-07] MEDS: INSULIN DETEMIR (LEVEMIR) 100 UNIT/ML SYR SQ SCH (08:37)
[2023-01-07] MEDS: THIAMINE 100 MG TAB PO SCH (08:37)
[2023-01-07] MEDS: EZETIMIBE 10 MG TAB PO SCH (08:37)
[2023-01-07] MEDS: MULTIVITAMINS, THERA 1 EACH TAB PO SCH (08:38)
[2023-01-07] MEDS: ATORVASTATIN 20 MG TAB PO SCH (08:38)
[2023-01-07] MEDS: PANTOPRAZOLE 40 MG/10 ML VIAL IV SCH (08:38)
[2023-01-07] MEDS: ASPIRIN 81 MG PO SCH (08:38)
[2023-01-07 08:48] LABS: ALT 26 U/L (4-49); AST 28 U/L (17-59); African American GFR (CKD) >90 (>60 ml/min/1.73 sqM); Albumin 3.3 g/dL (3.5-5.0); Alkaline Phosphatase 54 U/L (38-126); Anion Gap 2 mmol/L; Blood Urea Nitrogen 33 mg/dL (9-20); Calcium 8.4 mg/dL (8.4-10.2); Carbon Dioxide 34 mmol/L (22-30); Chloride 95 mmol/L (98-107); Glucose 157 mg/dL (74-99); Non-African American GFR(CKD) >90 (>60 ml/min/1.73 sqM); Potassium 5.2 mmol/L (3.5-5.1); Sodium 131 mmol/L (137-145); Total Bilirubin 0.6 mg/dL (0.2-1.3); Total Protein 5.7 g/dL (6.3-8.2)
[2023-01-07] MEDS: LORazepam 2 MG/ML INJ IV PRN ×2 (08:52→19:38)
[2023-01-07 10:26] LABS: ABG HCO3 34 mmol/L (21-25); ABG Oxygen Saturation 94.8 % (94-97); ABG PCO2 52 mmHg (35-45); ABG PH 7.42 (7.35-7.45); ABG PO2 65 mmHg (83-108); ABG TCO2 35 mmol/L (19-24); Allen Test Performed? Yes
[2023-01-07 11:27] LABS: Glucose,Whole Blood 178 mg/dL (70-110)
--- NOTE | 2023-01-07 11:31 | P.PN ---
Subjective Progress Note Date: 01/07/23 Principal diagnosis: COPD exacerbation. I am seeing this patient in new consultation today 01/05/2023 on the selective care unit after the patient had experienced a fall landing on his right hip. Patient is a 72-year-old male with a history very severe COPD. His FEV1 is 19% of predicted, and he is oxygen and steroid dependent. In addition, he has a history of CAD, hypertension, hyperlipidemia, type 2 diabetes, alcoholism. Patient apparently has frequent falls. He did fall, landing on his right hip yesterday, and came into the emergency room. X-ray showed an acute fracture of the right femoral neck. CT of the brain and C-spine without contrast showed no acute intracranial process, and some mild chronic appearing periventricular white matter ischemic type changes. Patient was admitted to the cardiac stepdown unit. He is currently lying in bed, lethargic and minimally responsive, on 40% Ventimask. Spo2 of 88%. Chest x-ray shows no acute cardiopulmonary process. I did order an ABG which shows a PaO2 of 60%, pCO2 of 88, pH of 7.25. The patient will be placed on a BiPAP with settings 10/5 and FiO2 of 40%. Patient's COPD appears active, and lung sounds are bronchospastic. Patient is on a combination of bronchodilators and Symbicort inhaler currently. We will monitor the patient's respiratory status closely. Progress note dated 01/06/2023. The patient is seen in room 366. The patient fell and fractured his right hip. In my opinion, the patient is not stable for surgical intervention at this time. The patient remains on BiPAP, at 10/5 and 35%. The patient's getting saline at 75 mL an hour. The patient has been seen by orthopedics. Lab data includes a white count 10.5, he will been 10.9, hematocrit 34.5, with a normal platelet count. Sodium 131, potassium 5.4, chlorides 92, CO2 35, BUN 35, and creatinine 0.91. Albumin is 3.4. Progress note dated 01/07/2023. The patient is seen today in room 366. The patient is currently on BiPAP, with settings of 10/5, and 35%. He is getting saline at 75 mL an hour. The patient will have a repeat arterial blood gas today. Currently, the patient is likely not a candidate for any surgical intervention. He has been seen by orthopedics. Lab data today includes a white count of 11.9, hemoglobin 11, hematocrit 34.6, and a platelet count of 190,000. Sodium 131, potassium 5.2, chlorides 95, CO2 34, BUN 33, and creatinine 0.69. Albumin is 3.3. Repeat blood gases, on BiPAP, show a PaO2 of 65, pCO2 of 52, and a pH is 7.42. According to the nurse, the patient was taken off the BiPAP earlier today, his saturations dropped down into the mid 80s. Objective - Vital Signs Vital signs: Vital Signs Temp 98.4 F 01/07/23 08:00 Pulse 97 01/07/23 08:00 Resp 20 01/07/23 08:00 BP 165/95 01/07/23 08:00 Pulse Ox 88 L 01/07/23 08:00 FiO2 35 01/07/23 10:55 Intake & Output 01/06/23 01/07/23 01/07/23 18:59 06:59 18:59 Output Total 300 500 400 Balance -300 -500 -400 Weight 84 kg Output: Urine 300 500 400 Other: Voiding Method Indwelling Catheter Indwelling Catheter Indwelling Catheter - Exam No acute distress, lethargic, currently on BiPAP therapy. HEENT examination is grossly unremarkable. Neck supple. Full range of motion. No adenopathy thyromegaly or neck vein distention. Cardiovascular examination reveals regular rhythm rate. S1-S2 normal. No S3 or S4. No discernible murmur noted. Heart sounds are distant. Heart rate is 97 bpm. Lungs reveal scattered bilateral rhonchi and wheezes. No crackles. Breath sounds equal, but diminished throughout. Saturations are 90%. Abdomen soft bowel sounds are heard. No masses or tenderness. Extremities are intact. No cyanosis clubbing or edema. Skin is without rash or lesion. Neurologic examination is unable to be evaluated at this time. - Labs CBC & Chem 7: 01/07/23 08:03 01/07/23 08:03 Labs: Abnormal Lab Results - Last 24 Hours (Table) 01/06/23 01/06/23 01/06/23 Range/Units 08:17 11:36 16:35 WBC (3.8-10.6) k/uL RBC (4.30-5.90) m/uL Hgb (13.0-17.5) gm/dL Hct (39.0-53.0) % ABG pCO2 (35-45) mmHg ABG pO2 (83-108) mmHg ABG HCO3 (21-25) mmol/L ABG Total CO2 (19-24) mmol/L Sodium (137-145) mmol/L Potassium (3.5-5.1) mmol/L Chloride (98-107) mmol/L Carbon Dioxide (22-30) mmol/L BUN (9-20) mg/dL Glucose (74-99) mg/dL POC Glucose (mg/dL) 227 H 232 H (70-110) mg/dL Hemoglobin A1c 8.4 H (0.0-6.0) % Total Protein (6.3-8.2) g/dL Albumin (3.5-5.0) g/dL 01/06/23 01/07/23 01/07/23 Range/Units 20:16 06:07 08:03 WBC 11.9 H (3.8-10.6) k/uL RBC 3.58 L (4.30-5.90) m/uL Hgb 11.0 L (13.0-17.5) gm/dL Hct 34.6 L (39.0-53.0) % ABG pCO2 (35-45) mmHg ABG pO2 (83-108) mmHg ABG HCO3 (21-25) mmol/L ABG Total CO2 (19-24) mmol/L Sodium (137-145) mmol/L Potassium (3.5-5.1) mmol/L Chloride (98-107) mmol/L Carbon Dioxide (22-30) mmol/L BUN (9-20) mg/dL Glucose (74-99) mg/dL POC Glucose (mg/dL) 211 H 152 H (70-110) mg/dL Hemoglobin A1c (0.0-6.0) % Total Protein (6.3-8.2) g/dL Albumin (3.5-5.0) g/dL 01/07/23 01/07/23 Range/Units 08:03 10:06 WBC (3.8-10.6) k/uL RBC (4.30-5.90) m/uL Hgb (13.0-17.5) gm/dL Hct (39.0-53.0) % ABG pCO2 52 H (35-45) mmHg ABG pO2 65 L (83-108) mmHg ABG HCO3 34 H (21-25) mmol/L ABG Total CO2 35 H (19-24) mmol/L Sodium 131 L (137-145) mmol/L Potassium 5.2 H (3.5-5.1) mmol/L Chloride 95 L (98-107) mmol/L Carbon Dioxide 34 H (22-30) mmol/L BUN 33 H (9-20) mg/dL Glucose 157 H (74-99) mg/dL POC Glucose (mg/dL) (70-110) mg/dL Hemoglobin A1c (0.0-6.0) % Total Protein 5.7 L (6.3-8.2) g/dL Albumin 3.3 L (3.5-5.0) g/dL Assessment and Plan Assessment: Status post fall, with a resultant right femoral neck fracture. Acute exacerbation of the patient's severe COPD. Patient currently on BiPAP therapy. Severe COPD, with an FEV1 that is 19% of predicted. Acute on chronic hypoxemic and hypercapnic respiratory failure. Coronary artery disease. Hypertension. Dyslipidemia. Type 2 diabetes mellitus. History of alcoholism. Plan: Plan dated 01/06/2023. In my opinion, at this time, the patient was not tolerating any surgical intervention, whether be with general anesthesia, or conscious sedation, with a spinal. I explained this to the patient's family member. This was also explained to her by orthopedics. At this point, we will just wait and watch, and hopefully, he turns around. We will repeat another blood gas in the morning. We will continue to follow the patient and make recommendations along the way. Prognosis is very guarded. Plan dated 01/07/2023. Although the patient's arterial blood gases are improved, and my opinion, he still too frail, and fragile, for any surgical intervention at this time he was his current regimen. We will evaluate him on a daily basis. Patient may or may not ever be a candidate for surgery. Additional recommendations and suggestions are forthcoming. Prognosis is certainly guarded. Time with Patient: Less than 30
[2023-01-07 16:41] LABS: Glucose,Whole Blood 185 mg/dL (70-110)
[2023-01-07 19:55] LABS: Glucose,Whole Blood 149 mg/dL (70-110)
[2023-01-07] MEDS: IPRATROPIUM-ALBUTEROL 3 ML NEB INHALATION PRN (22:27)
[2023-01-08] MEDS: methylPREDNISolone SOD SUCCI 125 MG/2 ML VIAL IV SCH ×3 (05:52→17:17)
[2023-01-08] MEDS: SODIUM CHLORIDE 0.9% 1,000 ML IV SCH ×2 (05:53→15:20)
[2023-01-08] MEDS: HYDROmorphone 1 MG/ML 1 ML SYRINGE IVP PRN ×2 (05:55→11:12)
[2023-01-08 06:20] LABS: Glucose,Whole Blood 183 mg/dL (70-110)
[2023-01-08] MEDS: INSULIN ASPART (NovoLOG) 100 UNIT/ML VIAL SQ SCH ×4 (06:21→22:03)
[2023-01-08] MEDS: IPRATROPIUM-ALBUTEROL 3 ML NEB INHALATION PRN ×2 (07:32→21:23)
[2023-01-08] MEDS: BUDESONIDE 1 MG/2 ML NEBU INHALATION SCH ×2 (07:32→21:23)
[2023-01-08] MEDS: FORMOTEROL FUMARATE 20 MCG/2 ML NEBU INHALATION SCH ×2 (07:40→21:23)
[2023-01-08 08:22] LABS: HCT 34.2 % (39.0-53.0); HGB 10.8 gm/dL (13.0-17.5); Hypochromasia Slight; MCH 30.8 pg (25.0-35.0); MCHC 31.5 g/dL (31.0-37.0); MCV 97.9 fL (80.0-100.0); Mean Platelet Volume 8.3; Platelet Count 162 k/uL (150-450); RDW 13.1 % (11.5-15.5); WBC 8.9 k/uL (3.8-10.6)
[2023-01-08] MEDS: EZETIMIBE 10 MG TAB PO SCH (08:34)
[2023-01-08] MEDS: THIAMINE 100 MG TAB PO SCH (08:34)
[2023-01-08] MEDS: INSULIN DETEMIR (LEVEMIR) 100 UNIT/ML SYR SQ SCH (08:34)
[2023-01-08] MEDS: LOSARTAN 50 MG TAB PO SCH (08:34)
[2023-01-08] MEDS: MULTIVITAMINS, THERA 1 EACH TAB PO SCH (08:34)
[2023-01-08] MEDS: PANTOPRAZOLE 40 MG/10 ML VIAL IV SCH (08:34)
[2023-01-08] MEDS: ASPIRIN 81 MG PO SCH (08:34)
[2023-01-08] MEDS: ATORVASTATIN 20 MG TAB PO SCH (08:34)
[2023-01-08 08:40] LABS: ALT 22 U/L (4-49); AST 23 U/L (17-59); African American GFR (CKD) >90 (>60 ml/min/1.73 sqM); Albumin 2.9 g/dL (3.5-5.0); Alkaline Phosphatase 41 U/L (38-126); Anion Gap 3 mmol/L; Blood Urea Nitrogen 32 mg/dL (9-20); Calcium 7.8 mg/dL (8.4-10.2); Carbon Dioxide 29 mmol/L (22-30); Chloride 99 mmol/L (98-107); Glucose 175 mg/dL (74-99); Non-African American GFR(CKD) >90 (>60 ml/min/1.73 sqM); Potassium 4.9 mmol/L (3.5-5.1); Sodium 131 mmol/L (137-145); Total Bilirubin 0.6 mg/dL (0.2-1.3); Total Protein 5.2 g/dL (6.3-8.2)
[2023-01-08 11:32] LABS: Glucose,Whole Blood 261 mg/dL (70-110)
--- NOTE | 2023-01-08 11:34 | P.PN ---
Subjective Progress Note Date: 01/08/23 Principal diagnosis: COPD exacerbation. I am seeing this patient in new consultation today 01/05/2023 on the selective care unit after the patient had experienced a fall landing on his right hip. Patient is a 72-year-old male with a history very severe COPD. His FEV1 is 19% of predicted, and he is oxygen and steroid dependent. In addition, he has a history of CAD, hypertension, hyperlipidemia, type 2 diabetes, alcoholism. Patient apparently has frequent falls. He did fall, landing on his right hip yesterday, and came into the emergency room. X-ray showed an acute fracture of the right femoral neck. CT of the brain and C-spine without contrast showed no acute intracranial process, and some mild chronic appearing periventricular white matter ischemic type changes. Patient was admitted to the cardiac stepdown unit. He is currently lying in bed, lethargic and minimally responsive, on 40% Ventimask. Spo2 of 88%. Chest x-ray shows no acute cardiopulmonary process. I did order an ABG which shows a PaO2 of 60%, pCO2 of 88, pH of 7.25. The patient will be placed on a BiPAP with settings 10/5 and FiO2 of 40%. Patient's COPD appears active, and lung sounds are bronchospastic. Patient is on a combination of bronchodilators and Symbicort inhaler currently. We will monitor the patient's respiratory status closely. Progress note dated 01/06/2023. The patient is seen in room 366. The patient fell and fractured his right hip. In my opinion, the patient is not stable for surgical intervention at this time. The patient remains on BiPAP, at 10/5 and 35%. The patient's getting saline at 75 mL an hour. The patient has been seen by orthopedics. Lab data includes a white count 10.5, he will been 10.9, hematocrit 34.5, with a normal platelet count. Sodium 131, potassium 5.4, chlorides 92, CO2 35, BUN 35, and creatinine 0.91. Albumin is 3.4. Progress note dated 01/07/2023. The patient is seen today in room 366. The patient is currently on BiPAP, with settings of 10/5, and 35%. He is getting saline at 75 mL an hour. The patient will have a repeat arterial blood gas today. Currently, the patient is likely not a candidate for any surgical intervention. He has been seen by orthopedics. Lab data today includes a white count of 11.9, hemoglobin 11, hematocrit 34.6, and a platelet count of 190,000. Sodium 131, potassium 5.2, chlorides 95, CO2 34, BUN 33, and creatinine 0.69. Albumin is 3.3. Repeat blood gases, on BiPAP, show a PaO2 of 65, pCO2 of 52, and a pH is 7.42. According to the nurse, the patient was taken off the BiPAP earlier today, his saturations dropped down into the mid 80s. Progress note dated 01/08/2023. 72-year-old male seen in room 366. The patient remains on BiPAP, settings of 10/5 and 35%. The patient is getting saline at 75 mL an hour. When he's not on BiPAP, he gets oxygen at 4 L by nasal cannula. The patient fell and fractured his right hip. We are hoping that the patient can stabilize, and be a candidate for surgery. The patient has very poor lung function. White count 8.9, hemoglobin 10.8, hematocrit 34.2, and platelet count 162,000. Sodium 131, potassium 4.9, chlorides 99, CO2 29, BUN 32, and creatinine 0.56. Objective - Vital Signs Vital signs: Vital Signs Temp 97.4 F L 01/08/23 08:18 Pulse 84 01/08/23 11:07 Resp 22 01/08/23 11:07 BP 173/89 01/08/23 11:07 Pulse Ox 96 01/08/23 11:07 FiO2 35 01/08/23 09:00 Intake & Output 01/07/23 01/08/23 01/08/23 18:59 06:59 18:59 Intake Total 180 500 Output Total 1300 600 Balance -1120 -600 500 Weight 84 kg Intake: Oral 180 500 Output: Urine 1300 600 Other: Voiding Method Indwelling Catheter Indwelling Catheter Indwelling Catheter - Exam No acute distress, lethargic, currently on BiPAP therapy. HEENT examination is grossly unremarkable. Neck supple. Full range of motion. No adenopathy thyromegaly or neck vein distention. Cardiovascular examination reveals regular rhythm rate. S1-S2 normal. No S3 or S4. No discernible murmur noted. Heart sounds are distant. Heart rate is 84 bpm. Lungs reveal scattered bilateral rhonchi and wheezes. No crackles. Breath sounds equal, but diminished throughout. On 4 L, saturation is 96%. On BiPAP, it is 97%. Abdomen soft bowel sounds are heard. No masses or tenderness. Extremities are intact. No cyanosis clubbing or edema. Skin is without rash or lesion. Neurologic examination is unable to be evaluated at this time. - Labs CBC & Chem 7: 01/08/23 07:24 01/08/23 07:24 Labs: Abnormal Lab Results - Last 24 Hours (Table) 01/07/23 01/07/23 01/08/23 Range/Units 16:40 19:54 06:19 RBC (4.30-5.90) m/uL Hgb (13.0-17.5) gm/dL Hct (39.0-53.0) % Sodium (137-145) mmol/L BUN (9-20) mg/dL Creatinine (0.66-1.25) mg/dL Glucose (74-99) mg/dL POC Glucose (mg/dL) 185 H 149 H 183 H (70-110) mg/dL Calcium (8.4-10.2) mg/dL Total Protein (6.3-8.2) g/dL Albumin (3.5-5.0) g/dL 01/08/23 01/08/23 Range/Units 07:24 07:24 RBC 3.50 L (4.30-5.90) m/uL Hgb 10.8 L (13.0-17.5) gm/dL Hct 34.2 L (39.0-53.0) % Sodium 131 L (137-145) mmol/L BUN 32 H (9-20) mg/dL Creatinine 0.56 L (0.66-1.25) mg/dL Glucose 175 H (74-99) mg/dL POC Glucose (mg/dL) (70-110) mg/dL Calcium 7.8 L (8.4-10.2) mg/dL Total Protein 5.2 L (6.3-8.2) g/dL Albumin 2.9 L (3.5-5.0) g/dL Assessment and Plan Assessment: Status post fall, with a resultant right femoral neck fracture. Acute exacerbation of the patient's severe COPD. Patient currently on BiPAP therapy. Severe COPD, with an FEV1 that is 19% of predicted. Acute on chronic hypoxemic and hypercapnic respiratory failure. Coronary artery disease. Hypertension. Dyslipidemia. Type 2 diabetes mellitus. History of alcoholism. Plan: Plan dated 01/06/2023. In my opinion, at this time, the patient was not tolerating any surgical intervention, whether be with general anesthesia, or conscious sedation, with a spinal. I explained this to the patient's family member. This was also explained to her by orthopedics. At this point, we will just wait and watch, and hopefully, he turns around. We will repeat another blood gas in the morning. We will continue to follow the patient and make recommendations along the way. Prognosis is very guarded. Plan dated 01/07/2023. Although the patient's arterial blood gases are improved, and my opinion, he still too frail, and fragile, for any surgical intervention at this time he was his current regimen. We will evaluate him on a daily basis. Patient may or may not ever be a candidate for surgery. Additional recommendations and suggestions are forthcoming. Prognosis is certainly guarded. Plan dated 01/08/2023. The patient continues to show slow improvement. He's been able to spend some ti me off on BiPAP, at 4 L, with saturations in the mid 90s. The patient will continue with his current medications. His prognosis is guarded. I've spoken to family members each day. Labs, x-rays, medications are reviewed. Prognosis is certainly guarded. Time with Patient: Less than 30
[2023-01-08 17:04] LABS: Glucose,Whole Blood 279 mg/dL (70-110)
--- NOTE | 2023-01-08 17:07 | P.PN ---
Subjective Progress Note Date: 01/08/23 72-year-old male with a history very severe COPD. His FEV1 is 19% of predicted, and he is oxygen and steroid dependent. In addition, he has a history of CAD, hypertension, hyperlipidemia, type 2 diabetes, alcoholism. Patient apparently has frequent falls. He did fall, landing on his right hip yesterday, and came into the emergency room. X-ray showed an acute fracture of the right femoral neck. CT of the brain and C-spine without contrast showed no acute intracranial process, and some mild chronic appearing periventricular white matter ischemic type changes. Patient was admitted to the cardiac stepdown unit. He is currently lying in bed, lethargic and minimally responsive, on 40% Ventimask. S po2 of 88%. Chest x-ray shows no acute cardiopulmonary process. I did order an ABG which shows a PaO2 of 60%, pCO2 of 88, pH of 7.25. The patient will be placed on a BiPAP with settings 10/5 and FiO2 of 40%. Patient's COPD appears active, and lung sounds are bronchospastic. Patient is on a combination of bronchodilators and Symbicort inhaler currently. We will monitor the patient's respiratory status closely. Objective - Vital Signs Vital signs: Vital Signs Temp 97.4 F L 01/08/23 08:18 Pulse 79 01/08/23 08:18 Resp 19 01/08/23 09:00 BP 175/91 01/08/23 08:18 Pulse Ox 97 01/08/23 09:00 FiO2 35 01/08/23 09:00 Intake & Output 01/07/23 01/08/23 01/08/23 18:59 06:59 18:59 Intake Total 180 500 Output Total 1300 600 Balance -1120 -600 500 Weight 84 kg Intake: Oral 180 500 Output: Urine 1300 600 Other: Voiding Method Indwelling Catheter Indwelling Catheter Indwelling Catheter - Exam PHYSICAL EXAMINATION: GENERAL: The patient is alert and oriented x3, not in any acute distress. Well developed, well nourished. HEENT: Pupils are round and equally reacting to light. EOMI. No scleral icterus. No conjunctival pallor. Normocephalic, atraumatic. No pharyngeal erythema. No thyromegaly. CARDIOVASCULAR: S1 and S2 present. No murmurs, rubs, or gallops. PULMONARY: Chest is clear to auscultation, no wheezing or crackles. ABDOMEN: Soft, nontender, nondistended, normoactive bowel sounds. No palpable organomegaly. MUSCULOSKELETAL: No joint swelling or deformity. EXTREMITIES: No cyanosis, clubbing, or pedal edema. NEUROLOGICAL: Gross neurological examination did not reveal any focal deficits. SKIN: No rashes. - Labs CBC & Chem 7: 01/08/23 07:24 01/08/23 07:24 Labs: Abnormal Lab Results - Last 24 Hours (Table) 01/07/23 01/07/23 01/07/23 Range/Units 11:25 16:40 19:54 RBC (4.30-5.90) m/uL Hgb (13.0-17.5) gm/dL Hct (39.0-53.0) % Sodium (137-145) mmol/L BUN (9-20) mg/dL Creatinine (0.66-1.25) mg/dL Glucose (74-99) mg/dL POC Glucose (mg/dL) 178 H 185 H 149 H (70-110) mg/dL Calcium (8.4-10.2) mg/dL Total Protein (6.3-8.2) g/dL Albumin (3.5-5.0) g/dL 01/08/23 01/08/23 01/08/23 Range/Units 06:19 07:24 07:24 RBC 3.50 L (4.30-5.90) m/uL Hgb 10.8 L (13.0-17.5) gm/dL Hct 34.2 L (39.0-53.0) % Sodium 131 L (137-145) mmol/L BUN 32 H (9-20) mg/dL Creatinine 0.56 L (0.66-1.25) mg/dL Glucose 175 H (74-99) mg/dL POC Glucose (mg/dL) 183 H (70-110) mg/dL Calcium 7.8 L (8.4-10.2) mg/dL Total Protein 5.2 L (6.3-8.2) g/dL Albumin 2.9 L (3.5-5.0) g/dL Assessment and Plan Assessment: Status post fall, with a resultant right femoral neck fracture. Acute exacerbation of the patient's severe COPD. Patient currently on BiPAP therapy. Severe COPD, with an FEV1 that is 19% of predicted. Acute on chronic hypoxemic and hypercapnic respiratory failure. Coronary artery disease. Hypertension. Dyslipidemia Type 2 diabetes mellitus. --Patient's medications, labs, chest x-ray reviewed Start the patient on a combination of budesinide, formoterol, and DuoNeb inhalations. Start the patient on IV Solu-Medrol Initiate BiPAP settings of 10/5 and titrate FiO2 to maintain SPO2 between 88 - 92% Check for COVID-19 and influenza Surgical services were consulted regarding the patient's right femoral neck fracture. There is concern that the patient might have difficulty extubating following a surgical repair. Pain management [facility] protocol Novolog insulin ACHS to scale and Levemir insulin per admitting
[2023-01-08 20:03] LABS: Glucose,Whole Blood 275 mg/dL (70-110)
[2023-01-08] MEDS: MORPHINE SULFATE 4 MG/ML SYRINGE IV PRN (22:04)
[2023-01-09] MEDS: methylPREDNISolone SOD SUCCI 125 MG/2 ML VIAL IV SCH ×4 (00:22→16:48)
[2023-01-09 05:54] LABS: Glucose,Whole Blood 243 mg/dL (70-110)
[2023-01-09] MEDS: INSULIN ASPART (NovoLOG) 100 UNIT/ML VIAL SQ SCH ×4 (07:19→22:36)
[2023-01-09] MEDS: SODIUM CHLORIDE 0.9% 1,000 ML IV SCH ×2 (07:20→16:48)
[2023-01-09] MEDS: INSULIN DETEMIR (LEVEMIR) 100 UNIT/ML SYR SQ SCH (08:05)
[2023-01-09] MEDS: HYDROmorphone 1 MG/ML 1 ML SYRINGE IVP PRN (08:05)
[2023-01-09] MEDS: PANTOPRAZOLE 40 MG/10 ML VIAL IV SCH (08:05)
[2023-01-09] MEDS: LOSARTAN 50 MG TAB PO SCH (08:06)
[2023-01-09] MEDS: ATORVASTATIN 20 MG TAB PO SCH (08:06)
[2023-01-09] MEDS: ASPIRIN 81 MG PO SCH (08:06)
[2023-01-09] MEDS: THIAMINE 100 MG TAB PO SCH (08:06)
[2023-01-09] MEDS: MULTIVITAMINS, THERA 1 EACH TAB PO SCH (08:06)
[2023-01-09] MEDS: EZETIMIBE 10 MG TAB PO SCH (08:06)
[2023-01-09] MEDS: BUDESONIDE 1 MG/2 ML NEBU INHALATION SCH ×2 (08:47→21:29)
[2023-01-09] MEDS: FORMOTEROL FUMARATE 20 MCG/2 ML NEBU INHALATION SCH ×2 (08:47→21:29)
[2023-01-09] MEDS: IPRATROPIUM-ALBUTEROL 3 ML NEB INHALATION PRN ×4 (08:47→21:29)
[2023-01-09] MEDS: MORPHINE SULFATE 4 MG/ML SYRINGE IV PRN ×2 (09:44→22:35)
--- NOTE | 2023-01-09 10:43 | P.PN ---
Subjective Progress Note Date: 01/09/23 Principal diagnosis: COPD exacerbation. I am seeing this patient in new consultation today 01/05/2023 on the selective care unit after the patient had experienced a fall landing on his right hip. Patient is a 72-year-old male with a history very severe COPD. His FEV1 is 19% of predicted, and he is oxygen and steroid dependent. In addition, he has a history of CAD, hypertension, hyperlipidemia, type 2 diabetes, alcoholism. Patient apparently has frequent falls. He did fall, landing on his right hip yesterday, and came into the emergency room. X-ray showed an acute fracture of the right femoral neck. CT of the brain and C-spine without contrast showed no acute intracranial process, and some mild chronic appearing periventricular white matter ischemic type changes. Patient was admitted to the cardiac stepdown unit. He is currently lying in bed, lethargic and minimally responsive, on 40% Ventimask. Spo2 of 88%. Chest x-ray shows no acute cardiopulmonary process. I did order an ABG which shows a PaO2 of 60%, pCO2 of 88, pH of 7.25. The patient will be placed on a BiPAP with settings 10/5 and FiO2 of 40%. Patient's COPD appears active, and lung sounds are bronchospastic. Patient is on a combination of bronchodilators and Symbicort inhaler currently. We will monitor the patient's respiratory status closely. Progress note dated 01/06/2023. The patient is seen in room 366. The patient fell and fractured his right hip. In my opinion, the patient is not stable for surgical intervention at this time. The patient remains on BiPAP, at 10/5 and 35%. The patient's getting saline at 75 mL an hour. The patient has been seen by orthopedics. Lab data includes a white count 10.5, he will been 10.9, hematocrit 34.5, with a normal platelet count. Sodium 131, potassium 5.4, chlorides 92, CO2 35, BUN 35, and creatinine 0.91. Albumin is 3.4. Progress note dated 01/07/2023. The patient is seen today in room 366. The patient is currently on BiPAP, with settings of 10/5, and 35%. He is getting saline at 75 mL an hour. The patient will have a repeat arterial blood gas today. Currently, the patient is likely not a candidate for any surgical intervention. He has been seen by orthopedics. Lab data today includes a white count of 11.9, hemoglobin 11, hematocrit 34.6, and a platelet count of 190,000. Sodium 131, potassium 5.2, chlorides 95, CO2 34, BUN 33, and creatinine 0.69. Albumin is 3.3. Repeat blood gases, on BiPAP, show a PaO2 of 65, pCO2 of 52, and a pH is 7.42. According to the nurse, the patient was taken off the BiPAP earlier today, his saturations dropped down into the mid 80s. Progress note dated 01/08/2023. 72-year-old male seen in room 366. The patient remains on BiPAP, settings of 10/5 and 35%. The patient is getting saline at 75 mL an hour. When he's not on BiPAP, he gets oxygen at 4 L by nasal cannula. The patient fell and fractured his right hip. We are hoping that the patient can stabilize, and be a candidate for surgery. The patient has very poor lung function. White count 8.9, hemoglobin 10.8, hematocrit 34.2, and platelet count 162,000. Sodium 131, potassium 4.9, chlorides 99, CO2 29, BUN 32, and creatinine 0.56. Progress note dated 01/09/2023. 72-year-old male with severe chronic lung disease, seen again in room 366. The patient's currently on 4 L, and his saturations are 94%. He did not use of BiPAP device last night. The patient may be a candidate for surgical repair of his right hip fracture, early next week. He does feel better, and his verbal. No new labs today other than a glucose of 243. Objective - Vital Signs Vital signs: Vital Signs Temp 98.0 F 01/09/23 08:00 Pulse 80 01/09/23 09:19 Resp 22 01/09/23 08:00 BP 146/74 01/09/23 08:00 Pulse Ox 94 L 01/09/23 08:49 FiO2 35 01/08/23 11:25 Intake & Output 01/08/23 01/09/23 01/09/23 18:59 06:59 18:59 Intake Total 868 Output Total 800 900 Balance 68 -900 Intake: Oral 868 Output: Urine 800 900 Other: Voiding Method Indwelling Catheter Indwelling Catheter Indwelling Catheter - Exam No acute distress, much more awake and alert, currently on 4 L nasal cannula. HEENT examination is grossly unremarkable. Neck supple. Full range of motion. No adenopathy thyromegaly or neck vein distention. Cardiovascular examination reveals regular rhythm rate. S1-S2 normal. No S3 or S4. No discernible murmur noted. Heart sounds are distant. Heart rate is 80 bpm. Lungs reveal scattered bilateral rhonchi and wheezes. No crackles. Breath sounds equal, but diminished throughout. On 4 L, saturation is 94%. Abdomen soft bowel sounds are heard. No masses or tenderness. Extremities are intact. No cyanosis clubbing or edema. Skin is without rash or lesion. Neurologic examination is unable to be evaluated at this time. - Labs CBC & Chem 7: 01/08/23 07:24 01/08/23 07:24 Labs: Abnormal Lab Results - Last 24 Hours (Table) 01/08/23 01/08/23 01/08/23 Range/Units 11:29 16:57 20:01 POC Glucose (mg/dL) 261 H 279 H 275 H (70-110) mg/dL 01/09/23 Range/Units 05:53 POC Glucose (mg/dL) 243 H (70-110) mg/dL Assessment and Plan Assessment: Status post fall, with a resultant right femoral neck fracture. Acute exacerbation of the patient's severe COPD. Severe COPD, with an FEV1 that is 19% of predicted. Acute on chronic hypoxemic and hypercapnic respiratory failure. Coronary artery disease. Hypertension. Dyslipidemia. Type 2 diabetes mellitus. History of alcoholism. Plan: Plan dated 01/06/2023. In my opinion, at this time, the patient was not tolerating any surgical intervention, whether be with general anesthesia, or conscious sedation, with a spinal. I explained this to the patient's family member. This was also exp lained to her by orthopedics. At this point, we will just wait and watch, and hopefully, he turns around. We will repeat another blood gas in the morning. We will continue to follow the patient and make recommendations along the way. Prognosis is very guarded. Plan dated 01/07/2023. Although the patient's arterial blood gases are improved, and my opinion, he still too frail, and fragile, for any surgical intervention at this time he was his current regimen. We will evaluate him on a daily basis. Patient may or may not ever be a candidate for surgery. Additional recommendations and suggestions are forthcoming. Prognosis is certainly guarded. Plan dated 01/08/2023. The patient continues to show slow improvement. He's been able to spend some time off on BiPAP, at 4 L, with saturations in the mid 90s. The patient will continue with his current medications. His prognosis is guarded. I've spoken to family members each day. Labs, x-rays, medications are reviewed. Prognosis is certainly guarded. Plan dated 01/09/2023. Patient seems to have been improved over the last 24 hours. He did not use the BiPAP last night. The patient's currently on 4 L of oxygen, with saturations of about 94-95%. He is much more awake and alert. He can actually verbalize. The patient may be a candidate for repair of the right hip fracture, early next week. Labs, x-rays, and medications are reviewed. We will discuss with orthopedics. Time with Patient: Less than 30
[2023-01-09 11:23] LABS: Glucose,Whole Blood 217 mg/dL (70-110)
[2023-01-09 16:33] LABS: Glucose,Whole Blood 300 mg/dL (70-110)
--- NOTE | 2023-01-09 16:36 | P.PN ---
Subjective Progress Note Date: 01/09/23 72-year-old male with a history very severe COPD. His FEV1 is 19% of predicted, and he is oxygen and steroid dependent. In addition, he has a history of CAD, hypertension, hyperlipidemia, type 2 diabetes, alcoholism. Patient apparently has frequent falls. He did fall, landing on his right hip yesterday, and came into the emergency room. X-ray showed an acute fracture of the right femoral neck. CT of the brain and C-spine without contrast showed no acute intracranial process, and some mild chronic appearing periventricular white matter ischemic type changes. Patient was admitted to the cardiac stepdown unit. He is currently lying in bed, lethargic and minimally responsive, on 40% Ventimask. S po2 of 88%. Chest x-ray shows no acute cardiopulmonary process. I did order an ABG which shows a PaO2 of 60%, pCO2 of 88, pH of 7.25. The patient will be placed on a BiPAP with settings 10/5 and FiO2 of 40%. Patient's COPD appears active, and lung sounds are bronchospastic. Patient is on a combination of bronchodilators and Symbicort inhaler currently. We will monitor the patient's respiratory status closely. 24-hour interval change 01/09/2023 Patient is seen and evaluated in room at bedside; discussed with nursing staff; no specific complaints reported Vital signs are reviewed and reveal temperature of 98, pulse 80, respiration 22 and blood pressure 146/74; The patient's currently on 4 L, and his saturations are 94%. He did not use of BiPAP device last night. The patient may be a candidate for surgical repair of his right hip fracture, early next week. He does feel better, and his verbal. No new labs today other than a glucose of 243. Pulmonary service on board and might be able to optimize and cleared patient for repair of right hip fracture early next week Objective - Vital Signs Vital signs: Vital Signs Temp 98.0 F 01/09/23 08:00 Pulse 78 01/09/23 12:18 Resp 22 01/09/23 11:05 BP 151/76 01/09/23 11:05 Pulse Ox 92 L 01/09/23 11:05 FiO2 35 01/08/23 11:25 Intake & Output 01/08/23 01/09/23 01/09/23 18:59 06:59 18:59 Intake Total 868 Output Total 800 900 525 Balance 57 -694 -794 Intake: Oral 868 Output: Urine 800 900 525 Other: Voiding Method Indwelling Catheter Indwelling Catheter Indwelling Catheter - Exam PHYSICAL EXAMINATION: GENERAL: The patient is alert and oriented x3, not in any acute distress. Well developed, well nourished. HEENT: Pupils are round and equally reacting to light. EOMI. No scleral icterus. No conjunctival pallor. Normocephalic, atraumatic. No pharyngeal erythema. No thyromegaly. CARDIOVASCULAR: S1 and S2 present. No murmurs, rubs, or gallops. PULMONARY: Chest is clear to auscultation, no wheezing or crackles. ABDOMEN: Soft, nontender, nondistended, normoactive bowel sounds. No palpable organomegaly. MUSCULOSKELETAL: No joint swelling or deformity. EXTREMITIES: No cyanosis, clubbing, or pedal edema. NEUROLOGICAL: Gross neurological examination did not reveal any focal deficits. SKIN: No rashes. - Labs CBC & Chem 7: 01/08/23 07:24 01/08/23 07:24 Labs: Abnormal Lab Results - Last 24 Hours (Table) 01/08/23 01/08/23 01/09/23 Range/Units 16:57 20:01 05:53 POC Glucose (mg/dL) 279 H 275 H 243 H (70-110) mg/dL 01/09/23 Range/Units 11:21 POC Glucose (mg/dL) 217 H (70-110) mg/dL Assessment and Plan Assessment: Status post fall, with a resultant right femoral neck fracture. Acute exacerbation of the patient's severe COPD. Patient currently on BiPAP therapy. Severe COPD, with an FEV1 that is 19% of predicted. Acute on chronic hypoxemic and hypercapnic respiratory failure. Coronary artery disease. Hypertension. Dyslipidemia Type 2 diabetes mellitus. --Patient's medications, labs, chest x-ray reviewed Start the patient on a combination of budesinide, formoterol, and DuoNeb inhalations. Start the patient on IV Solu-Medrol Initiate BiPAP settings of 10/5 and titrate FiO2 to maintain SPO2 between 88 - 92% Check for COVID-19 and influenza Surgical services were consulted regarding the patient's right femoral neck fracture. There is concern that the patient might have difficulty extubating following a surgical repair. Pain management [place] protocol Novolog insulin ACHS to scale and Levemir insulin per admitting
[2023-01-09 19:58] LABS: Glucose,Whole Blood 299 mg/dL (70-110)
[2023-01-10] MEDS: methylPREDNISolone SOD SUCCI 125 MG/2 ML VIAL IV SCH ×4 (00:36→16:49)
[2023-01-10 05:50] LABS: Glucose,Whole Blood 217 mg/dL (70-110)
[2023-01-10] MEDS: SODIUM CHLORIDE 0.9% 1,000 ML IV SCH ×2 (06:54→18:22)
[2023-01-10] MEDS: INSULIN ASPART (NovoLOG) 100 UNIT/ML VIAL SQ SCH ×6 (06:54→21:38)
[2023-01-10] MEDS: IPRATROPIUM-ALBUTEROL 3 ML NEB INHALATION PRN ×2 (07:54→21:11)
[2023-01-10] MEDS: BUDESONIDE 1 MG/2 ML NEBU INHALATION SCH ×2 (07:54→21:11)
[2023-01-10] MEDS: MORPHINE SULFATE 4 MG/ML SYRINGE IV PRN ×2 (08:00→21:37)
[2023-01-10] MEDS: PANTOPRAZOLE 40 MG/10 ML VIAL IV SCH (08:01)
[2023-01-10] MEDS: ATORVASTATIN 20 MG TAB PO SCH (08:01)
[2023-01-10] MEDS: LOSARTAN 50 MG TAB PO SCH (08:01)
[2023-01-10] MEDS: INSULIN DETEMIR (LEVEMIR) 100 UNIT/ML SYR SQ SCH (08:01)
[2023-01-10] MEDS: ASPIRIN 81 MG PO SCH (08:01)
[2023-01-10] MEDS: MULTIVITAMINS, THERA 1 EACH TAB PO SCH (08:01)
[2023-01-10] MEDS: EZETIMIBE 10 MG TAB PO SCH (08:01)
[2023-01-10] MEDS: THIAMINE 100 MG TAB PO SCH (08:01)
[2023-01-10] MEDS: FORMOTEROL FUMARATE 20 MCG/2 ML NEBU INHALATION SCH ×2 (08:12→21:11)
[2023-01-10 11:04] LABS: Basophils % (A) 0 %; Eosinophils % (A) 0 %; HCT 34.3 % (39.0-53.0); HGB 10.9 gm/dL (13.0-17.5); Lymphocytes # (A) 0.1 k/uL (1.0-4.8); Lymphocytes % (A) 2 %; MCHC 31.9 g/dL (31.0-37.0); MCV 93.9 fL (80.0-100.0); Mean Platelet Volume 8.1; Monocytes # (A) 0.3 k/uL (0-1.0); Monocytes % (A) 4 %; Neutrophils # (A) 7.2 k/uL (1.3-7.7); Neutrophils % (A) 94 %; Platelet Count 166 k/uL (150-450); RBC 3.65 m/uL (4.30-5.90); RDW 13.2 % (11.5-15.5); WBC 7.7 k/uL (3.8-10.6)
[2023-01-10 11:06] LABS: African American GFR (CKD) >90 (>60 ml/min/1.73 sqM); Anion Gap 3 mmol/L; Blood Urea Nitrogen 27 mg/dL (9-20); Calcium 7.8 mg/dL (8.4-10.2); Carbon Dioxide 30 mmol/L (22-30); Chloride 97 mmol/L (98-107); Glucose 231 mg/dL (74-99); Non-African American GFR(CKD) >90 (>60 ml/min/1.73 sqM); Potassium 4.6 mmol/L (3.5-5.1); Sodium 130 mmol/L (137-145)
[2023-01-10 11:55] LABS: Glucose,Whole Blood 244 mg/dL (70-110)
--- NOTE | 2023-01-10 12:04 | P.PN ---
Subjective Progress Note Date: 01/10/23 Principal diagnosis: COPD exacerbation. I am seeing this patient in new consultation today 01/05/2023 on the selective care unit after the patient had experienced a fall landing on his right hip. Patient is a 72-year-old male with a history very severe COPD. His FEV1 is 19% of predicted, and he is oxygen and steroid dependent. In addition, he has a history of CAD, hypertension, hyperlipidemia, type 2 diabetes, alcoholism. Patient apparently has frequent falls. He did fall, landing on his right hip yesterday, and came into the emergency room. X-ray showed an acute fracture of the right femoral neck. CT of the brain and C-spine without contrast showed no acute intracranial process, and some mild chronic appearing periventricular white matter ischemic type changes. Patient was admitted to the cardiac stepdown unit. He is currently lying in bed, lethargic and minimally responsive, on 40% Ventimask. Spo2 of 88%. Chest x-ray shows no acute cardiopulmonary process. I did order an ABG which shows a PaO2 of 60%, pCO2 of 88, pH of 7.25. The patient will be placed on a BiPAP with settings 10/5 and FiO2 of 40%. Patient's COPD appears active, and lung sounds are bronchospastic. Patient is on a combination of bronchodilators and Symbicort inhaler currently. We will monitor the patient's respiratory status closely. Progress note dated 01/06/2023. The patient is seen in room 366. The patient fell and fractured his right hip. In my opinion, the patient is not stable for surgical intervention at this time. The patient remains on BiPAP, at 10/5 and 35%. The patient's getting saline at 75 mL an hour. The patient has been seen by orthopedics. Lab data includes a white count 10.5, he will been 10.9, hematocrit 34.5, with a normal platelet count. Sodium 131, potassium 5.4, chlorides 92, CO2 35, BUN 35, and creatinine 0.91. Albumin is 3.4. Progress note dated 01/07/2023. The patient is seen today in room 366. The patient is currently on BiPAP, with settings of 10/5, and 35%. He is getting saline at 75 mL an hour. The patient will have a repeat arterial blood gas today. Currently, the patient is likely not a candidate for any surgical intervention. He has been seen by orthopedics. Lab data today includes a white count of 11.9, hemoglobin 11, hematocrit 34.6, and a platelet count of 190,000. Sodium 131, potassium 5.2, chlorides 95, CO2 34, BUN 33, and creatinine 0.69. Albumin is 3.3. Repeat blood gases, on BiPAP, show a PaO2 of 65, pCO2 of 52, and a pH is 7.42. According to the nurse, the patient was taken off the BiPAP earlier today, his saturations dropped down into the mid 80s. Progress note dated 01/08/2023. 72-year-old male seen in room 366. The patient remains on BiPAP, settings of 10/5 and 35%. The patient is getting saline at 75 mL an hour. When he's not on BiPAP, he gets oxygen at 4 L by nasal cannula. The patient fell and fractured his right hip. We are hoping that the patient can stabilize, and be a candidate for surgery. The patient has very poor lung function. White count 8.9, hemoglobin 10.8, hematocrit 34.2, and platelet count 162,000. Sodium 131, potassium 4.9, chlorides 99, CO2 29, BUN 32, and creatinine 0.56. Progress note dated 01/09/2023. 72-year-old male with severe chronic lung disease, seen again in room 366. The patient's currently on 4 L, and his saturations are 94%. He did not use of BiPAP device last night. The patient may be a candidate for surgical repair of his right hip fracture, early next week. He does feel better, and his verbal. No new labs today other than a glucose of 243. Progress note dated 01/10/2023. 72-year-old male with severe chronic lung disease, seen today in room 366. The patient fell and fractured his right hip. Orthopedics was very concerned about repair, given the severity of his chronic lung disease. The patient has been weaned down the 6 L. He apparently did not use of BiPAP last night. He is getting saline at 75 mL an hour. I did explain to the patient patient's family members, that his risk of having a complication is significant. If he was going to proceed with surgical repair, this was a time to do a, as he's pretty much at baseline. Labs include a white count 7.7, hemoglobin 10.9, hematocrit 34.3, and a platelet count of 166,000. Sodium 1:30, potassium 4.6, chlorides 97, CO2 30, BUN 27, and creatinine 0.68. Objective - Vital Signs Vital signs: Vital Signs Temp 97.7 F 01/10/23 07:58 Pulse 84 01/10/23 11:03 Resp 24 01/10/23 11:03 BP 175/76 01/10/23 11:03 Pulse Ox 89 L 01/10/23 11:03 FiO2 35 01/08/23 11:25 Intake & Output 01/09/23 01/10/23 01/10/23 18:59 06:59 18:59 Intake Total 240 Output Total 925 725 375 Balance -925 -725 -135 Intake: Oral 240 Output: Urine 925 725 375 Other: Voiding Method Indwelling Catheter Indwelling Catheter Indwelling Catheter - Exam No acute distress, much more awake and alert, currently on 6 L nasal cannula. HEENT examination is grossly unremarkable. Neck supple. Full range of motion. No adenopathy thyromegaly or neck vein distention. Cardiovascular examination reveals regular rhythm rate. S1-S2 normal. No S3 or S4. No discernible murmur noted. Heart sounds are distant. Heart rate is 77 bpm. Lungs reveal scattered bilateral rhonchi and wheezes. No crackles. Breath sounds equal, but diminished throughout. On 6 L, saturation is 92%. Abdomen soft bowel sounds are heard. No masses or tenderness. Extremities are intact. No cyanosis clubbing or edema. Skin is without rash or lesion. Neurologic examination is unable to be evaluated at this time. - Labs CBC & Chem 7: 01/10/23 10:30 01/10/23 10:30 Labs: Abnormal Lab Results - Last 24 Hours (Table) 01/09/23 01/09/23 01/10/23 Range/Units 16:32 19:56 05:48 RBC (4.30-5.90) m/uL Hgb (13.0-17.5) gm/dL Hct (39.0-53.0) % Lymphocytes # (1.0-4.8) k/uL Sodium (137-145) mmol/L Chloride (98-107) mmol/L BUN (9-20) mg/dL Glucose (74-99) mg/dL POC Glucose (mg/dL) 300 H 299 H 217 H (70-110) mg/dL Calcium (8.4-10.2) mg/dL 01/10/23 01/10/23 01/10/23 Range/Units 10:30 10:30 11:53 RBC 3.65 L (4.30-5.90) m/uL Hgb 10.9 L (13.0-17.5) gm/dL Hct 34.3 L (39.0-53.0) % Lymphocytes # 0.1 L (1.0-4.8) k/uL Sodium 130 L (137-145) mmol/L Chloride 97 L (98-107) mmol/L BUN 27 H (9-20) mg/dL Glucose 231 H (74-99) mg/dL POC Glucose (mg/dL) 244 H (70-110) mg/dL Calcium 7.8 L (8.4-10.2) mg/dL Assessment and Plan Assessment: Status post fall, with a resultant right femoral neck fracture. Acute exacerbation of the patient's severe COPD. Severe COPD, with an FEV1 that is 19% of predicted. Acute on chronic hypoxemic and hypercapnic respiratory failure. Coronary artery disease. Hypertension. Dyslipidemia. Type 2 diabetes mellitus. History of alcoholism. Plan: Plan dated 01/06/2023. In my opinion, at this time, the patient was not tolerating any surgical intervention, whether be with general anesthesia, or conscious sedation, with a spinal. I explained this to the patient's family member. This was also explained to her by orthopedics. At this point, we will just wait and watch, and hopefully, he turns around. We will repeat another blood gas in the morning. We will continue to follow the patient and make recommendations along the way. Prognosis is very guarded. Plan dated 01/07/2023. Although the patient's arterial blood gases are improved, and my opinion, he still too frail, and fragile, for any surgical intervention at this time he was his current regimen. We will evaluate him on a daily basis. Patient may or may not ever be a candidate for surgery. Additional recommendations and suggestions are forthcoming. Prognosis is certainly guarded. Plan dated 01/08/2023. The patient continues to show slow improvement. He's been able to spend some time off on BiPAP, at 4 L, with saturations in the mid 90s. The patient will continue with his current medications. His prognosis is guarded. I've spoken to family members each day. Labs, x-rays, medications are reviewed. Prognosis is certainly guarded. Plan dated 01/09/2023. Patient seems to have been improved over the last 24 hours. He did not use the BiPAP last night. The patient's currently on 4 L of oxygen, with saturations of about 94-95%. He is much more awake and alert. He can actually verbalize. The patient may be a candidate for repair of the right hip fracture, early next week. Labs, x-rays, and medications are reviewed. We will discuss with orthopedics. Plan dated 01/10/2023. The patient is again seen today in room 366. He's been weaned down to 6 hours. I did tell the nurse, that his saturations are okay, between 88 and 92%. The patient has a decision is made, as well as orthopedics. I believe if they are considering surgery, this is a time to do it. With intensive therapy, such as bronchodilators, corticosteroids, I believe the patient's lung function is about as good as is going to get. Labs, x-rays, and medications are reviewed. Prognosis is guarded. We will continue to follow. Time with Patient: Less than 30
--- NOTE | 2023-01-10 12:46 | P.PN ---
Subjective Progress Note Date: 01/10/23 This patient is a 72- year old male who presented to [facility] on 01/04/23 after a fall. X-rays revealed a right femoral neck fracture. Patient has known history of severe lung disease and was not a surgical candidate initially on presentation due to this. Patient has been examined by Dr. Edmondson this morning and appears to be at baseline. Patient is optimized for surgery per Dr. Edmondson. Patient is examined bedside this morning. is bedside. They are interested in pursuing surgical treatment for his right femoral neck fracture. Patient is ambulatory at baseline. Objective - Vital Signs Vital signs: Vital Signs Temp 97.7 F 01/10/23 07:58 Pulse 84 01/10/23 11:03 Resp 24 01/10/23 11:03 BP 175/76 01/10/23 11:03 Pulse Ox 89 L 01/10/23 11:03 FiO2 35 01/08/23 11:25 Intake & Output 01/09/23 01/10/23 01/10/23 18:59 06:59 18:59 Intake Total 240 Output Total 925 725 375 Balance -925 -725 -135 Intake: Oral 240 Output: Urine 925 725 375 Other: Voiding Method Indwelling Catheter Indwelling Catheter Indwelling Catheter - Exam On examination, patient is sitting up in bed in no apparent distress. He is alert and orientated x3. On inspection of the right hip, no open wounds or lacerations. Skin is intact. Severe pain with log rolling of the right hip. Motor and sensory function is intact of the right lower extremity. Dorsalis pedis pulse is easily palpable, right lower extremity warm and well perfused. - Labs CBC & Chem 7: 01/10/23 10:30 01/10/23 10:30 Labs: Abnormal Lab Results - Last 24 Hours (Table) 01/09/23 01/09/23 01/10/23 Range/Units 16:32 19:56 05:48 RBC (4.30-5.90) m/uL Hgb (13.0-17.5) gm/dL Hct (39.0-53.0) % Lymphocytes # (1.0-4.8) k/uL Sodium (137-145) mmol/L Chloride (98-107) mmol/L BUN (9-20) mg/dL Glucose (74-99) mg/dL POC Glucose (mg/dL) 300 H 299 H 217 H (70-110) mg/dL Calcium (8.4-10.2) mg/dL 01/10/23 01/10/23 01/10/23 Range/Units 10:30 10:30 11:53 RBC 3.65 L (4.30-5.90) m/uL Hgb 10.9 L (13.0-17.5) gm/dL Hct 34.3 L (39.0-53.0) % Lymphocytes # 0.1 L (1.0-4.8) k/uL Sodium 130 L (137-145) mmol/L Chloride 97 L (98-107) mmol/L BUN 27 H (9-20) mg/dL Glucose 231 H (74-99) mg/dL POC Glucose (mg/dL) 244 H (70-110) mg/dL Calcium 7.8 L (8.4-10.2) mg/dL Assessment and Plan Assessment: Right femoral neck fracture Severe COPD Plan: - The risks and benefits of surgery were discussed in detail with the patient and his . They were also educated of the risks by Dr. Edmondson. Patient would like to proceed with surgical intervention for his right femoral neck fracture. Patient was discussed with Dr. Josué Rosas. We will plan for a right hip hemiarthroplasty tomorrow. NPO diet at midnight.
--- NOTE | 2023-01-10 14:51 | P.PN ---
Subjective Progress Note Date: 01/10/23 Principal diagnosis: Status post fall, with a resultant right femoral neck fracture. Acute exacerbation of the patient's severe COPD. Severe COPD, with an FEV1 that is 19% of predicted. Acute on chronic hypoxemic and hypercapnic respiratory failure 72-year-old male with a history very severe COPD. His FEV1 is 19% of predicted, and he is oxygen and steroid dependent. In addition, he has a history of CAD, hypertension, hyperlipidemia, type 2 diabetes, alcoholism. Patient apparently has frequent falls. He did fall, landing on his right hip yesterday, and came into the emergency room. X-ray showed an acute fracture of the right femoral neck. CT of the brain and C-spine without contrast showed no acute intracranial process, and some mild chronic appearing periventricular white matter ischemic type changes. Patient was admitted to the cardiac stepdown unit. He is currently lying in bed, lethargic and minimally responsive, on 40% Ventimask. Spo2 of 88%. Chest x-ray shows no acute cardiopulmonary process. I did order an ABG which shows a PaO2 of 60%, pCO2 of 88, pH of 7.25. The patient will be placed on a BiPAP with settings 10/5 and FiO2 of 40%. Patient's COPD appears active, and lung sounds are bronchospastic. Patient is on a combination of bronchodilators and Symbicort inhaler currently. We will monitor the patient's respiratory status closely. 24-hour interval change 01/09/2023 Patient is seen and evaluated in room at bedside; discussed with nursing staff; no specific complaints reported Vital signs are reviewed and reveal temperature of 98, pulse 80, respiration 22 and blood pressure 146/74; The patient's currently on 4 L, and his saturations are 94%. He did not use of BiPAP device last night. The patient may be a candidate for surgical repair of his right hip fracture, early next week. He does feel better, and his verbal. No new labs today other than a glucose of 243. Pulmonary service on board and might be able to optimize and cleared patient for repair of right hip fracture early next week 01/10/2023 Patient is seen and evaluated in room at bedside; patient remains on O2 at 6 L per nasal cannula with O2 saturation between 89-92%; patient refused BiPAP last night Vital signs are reviewed and reveal temperature of 97.7, pulse 84, respiration 24 and blood pressure 175/76 Labs include a white count 7.7, hemoglobin 10.9, hematocrit 34.3, and a platelet count of 166,000. Sodium 1:30, potassium 4.6, chlorides 97, CO2 30, BUN 27, and creatinine 0.68. Orthopedic surgery on board and overweight patient's respiratory status optimized prior to proceeding with hip fracture repair Pulmonary service; patient is close to his baseline; remains high surgical risk due to the severity of chronic lung disease Objective - Vital Signs Vital signs: Vital Signs Temp 97.7 F 01/10/23 07:58 Pulse 78 01/10/23 08:22 Resp 22 01/10/23 07:58 BP 171/89 01/10/23 07:58 Pulse Ox 95 01/10/23 07:58 FiO2 35 01/08/23 11:25 Intake & Output 01/09/23 01/10/23 01/10/23 18:59 06:59 18:59 Intake Total 240 Output Total 925 725 Balance -925 -725 240 Intake: Oral 240 Output: Urine 925 725 Other: Voiding Method Indwelling Catheter Indwelling Catheter Indwelling Catheter - Exam PHYSICAL EXAMINATION: GENERAL: The patient is alert and oriented x3, not in any acute distress. Well developed, well nourished. HEENT: Pupils are round and equally reacting to light. EOMI. No scleral icterus. No conjunctival pallor. Normocephalic, atraumatic. No pharyngeal erythema. No thyromegaly. CARDIOVASCULAR: S1 and S2 present. No murmurs, rubs, or gallops. PULMONARY: Chest is clear to auscultation, no wheezing or crackles. ABDOMEN: Soft, nontender, nondistended, normoactive bowel sounds. No palpable organomegaly. MUSCULOSKELETAL: No joint swelling or deformity. EXTREMITIES: No cyanosis, clubbing, or pedal edema. NEUROLOGICAL: Gross neurological examination did not reveal any focal deficits. SKIN: No rashes. - Labs CBC & Chem 7: 01/10/23 10:30 01/10/23 10:30 Labs: Abnormal Lab Results - Last 24 Hours (Table) 01/09/23 01/09/23 01/09/23 Range/Units 11:21 16:32 19:56 POC Glucose (mg/dL) 217 H 300 H 299 H (70-110) mg/dL 01/10/23 Range/Units 05:48 POC Glucose (mg/dL) 217 H (70-110) mg/dL Assessment and Plan Assessment: Status post fall, with a resultant right femoral neck fracture. Acute exacerbation of the patient's severe COPD. Patient currently on BiPAP therapy. Severe COPD, with an FEV1 that is 19% of predicted. Acute on chronic hypoxemic and hypercapnic respiratory failure. Coronary artery disease. Hypertension. Dyslipidemia Type 2 diabetes mellitus. --Patient's medications, labs, chest x-ray reviewed Start the patient on a combination of budesinide, formoterol, and DuoNeb inhalations. Start the patient on IV Solu-Medrol Initiate BiPAP settings of 10/5 and titrate FiO2 to maintain SPO2 between 88 - 92% Check for COVID-19 and influenza Surgical services were consulted regarding the patient's right femoral neck fracture. There is concern that the patient might have difficulty extubating following a surgical repair. Pain management [facility] protocol Novolog insulin ACHS to scale and Levemir insulin per admitting
[2023-01-10] MEDS: HYDROmorphone 1 MG/ML 1 ML SYRINGE IVP PRN (15:13)
[2023-01-10 16:43] LABS: Glucose,Whole Blood 265 mg/dL (70-110)
[2023-01-10 20:06] LABS: Glucose,Whole Blood 245 mg/dL (70-110)
[2023-01-11] MEDS: methylPREDNISolone SOD SUCCI 125 MG/2 ML VIAL IV SCH ×5 (00:04→23:25)
[2023-01-11 06:03] LABS: Glucose,Whole Blood 215 mg/dL (70-110)
[2023-01-11] MEDS: INSULIN ASPART (NovoLOG) 100 UNIT/ML VIAL SQ SCH ×7 (07:05→21:30)
[2023-01-11] MEDS: INSULIN DETEMIR (LEVEMIR) 100 UNIT/ML SYR SQ SCH (08:34)
[2023-01-11] MEDS: MULTIVITAMINS, THERA 1 EACH TAB PO SCH (08:34)
[2023-01-11] MEDS: THIAMINE 100 MG TAB PO SCH (08:35)
[2023-01-11] MEDS: ASPIRIN 81 MG PO SCH (08:35)
[2023-01-11] MEDS: ATORVASTATIN 20 MG TAB PO SCH (08:36)
[2023-01-11] MEDS: EZETIMIBE 10 MG TAB PO SCH (08:36)
[2023-01-11] MEDS: BUDESONIDE 1 MG/2 ML NEBU INHALATION SCH ×2 (08:41→21:33)
[2023-01-11] MEDS: IPRATROPIUM-ALBUTEROL 3 ML NEB INHALATION PRN ×3 (08:41→21:32)
[2023-01-11] MEDS: FORMOTEROL FUMARATE 20 MCG/2 ML NEBU INHALATION SCH ×2 (08:41→21:32)
--- NOTE | 2023-01-11 08:48 | P.PN ---
Subjective Progress Note Date: 01/11/23 Principal diagnosis: Fall with hip fracture This is a 72-year-old male who was admitted after a fall at home. Patient was diagnosed with a right femoral fracture. He is a history of poorly controlled diabetes, alcoholism, and is oxygen dependent and steroid dependent COPD. At home patient is on 4 L of oxygen. Patient remains on BiPAP, pulmonology is not able to clear him for surgery at this time. Concern for extubation after surgery, and inability to tolerate. Patient is seen this morning laying in bed, reports pain is somewhat controlled. Still with tachypnea this morning. Patient remains on Solu-Medrol 60mh every 6 hours. 01/11/23 Patient's lungs have improved to baseline. He no longer requires BiPAP. He is maintained on 4 L nasal cannula. Plan is for right hip hemiarthroplasty today with Dr. Rosas. Objective - Vital Signs Vital signs: Vital Signs Temp 97.5 F L 01/11/23 08:00 Pulse 68 01/11/23 08:41 Resp 19 01/11/23 08:00 BP 175/77 01/11/23 08:00 Pulse Ox 91 L 01/11/23 08:00 FiO2 35 01/08/23 11:25 Intake & Output 01/10/23 01/11/23 01/11/23 18:59 06:59 18:59 Intake Total 1320 Output Total 4530 409 2758 Balance 320 -550 -1200 Weight 87 kg Intake: Oral 1320 Output: Urine 9043 717 6467 Other: Voiding Method Indwelling Catheter Indwelling Catheter - Constitutional General appearance: Present: cooperative, no acute distress - EENT Eyes: Present: EOMI, PERRLA - Neck Neck: Present: normal ROM. Absent: lymphadenopathy, rigidity - Respiratory Respiratory: bilateral: rhonchi, wheezing - Cardiovascular Rhythm: regular Heart sounds: normal: S1, S2 - Gastrointestinal General gastrointestinal: Present: soft. Absent: tenderness - Integumentary Integumentary: Present: normal, normal turgor - Psychiatric Psychiatric: Present: A&O x's 3, appropriate affect, intact judgment & insight - Labs CBC & Chem 7: 01/10/23 10:30 01/10/23 10:30 Labs: Abnormal Lab Results - Last 24 Hours (Table) 01/10/23 01/10/23 01/10/23 Range/Units 10:30 10:30 11:53 RBC 3.65 L (4.30-5.90) m/uL Hgb 10.9 L (13.0-17.5) gm/dL Hct 34.3 L (39.0-53.0) % Lymphocytes # 0.1 L (1.0-4.8) k/uL Sodium 130 L (137-145) mmol/L Chloride 97 L (98-107) mmol/L BUN 27 H (9-20) mg/dL Glucose 231 H (74-99) mg/dL POC Glucose (mg/dL) 244 H (70-110) mg/dL Calcium 7.8 L (8.4-10.2) mg/dL 01/10/23 01/10/23 01/11/23 Range/Units 16:42 19:58 05:41 RBC (4.30-5.90) m/uL Hgb (13.0-17.5) gm/dL Hct (39.0-53.0) % Lymphocytes # (1.0-4.8) k/uL Sodium (137-145) mmol/L Chloride (98-107) mmol/L BUN (9-20) mg/dL Glucose (74-99) mg/dL POC Glucose (mg/dL) 265 H 245 H 215 H (70-110) mg/dL Calcium (8.4-10.2) mg/dL Assessment and Plan (1) Alcoholism Current Visit: Yes Status: Acute Code(s): F10.20 - ALCOHOL DEPENDENCE, UNCOMPLICATED SNOMED Code(s): 8504776 (2) Fall Current Visit: Yes Status: Acute Code(s): W19.XXXA - UNSPECIFIED FALL, INITIAL ENCOUNTER SNOMED Code(s): 9452740 (3) Fracture of femoral neck, right Current Visit: Yes Status: Acute Code(s): S72.001A - FRACTURE OF UNSP PART OF NECK OF RIGHT FEMUR, INIT SNOMED Code(s): 0567018 (4) COPD with acute exacerbation Current Visit: No Status: Acute Code(s): J44.1 - CHRONIC OBSTRUCTIVE PULMONARY DISEASE W (ACUTE) EXACERBATION SNOMED Code(s): 013526015 (5) Diabetes Current Visit: No Status: Acute Code(s): E11.9 - TYPE 2 DIABETES MELLITUS WITHOUT COMPLICATIONS SNOMED Code(s): 79909052 (6) Smoker Current Visit: No Status: Acute Code(s): F17.200 - NICOTINE DEPENDENCE, UNSPECIFIED, UNCOMPLICATED SNOMED Code(s): 17081387 Plan: Appreciate multiple consultants input. Plan for surgery today. Patient seen and evaluated by nurse practitioner, physician in agreement with plan
[2023-01-11] MEDS: LOSARTAN 50 MG TAB PO SCH (09:32)
[2023-01-11] MEDS: PANTOPRAZOLE 40 MG/10 ML VIAL IV SCH (09:37)
[2023-01-11] MEDS: HYDROmorphone 1 MG/ML 1 ML SYRINGE IVP PRN ×2 (09:38→23:26)
[2023-01-11 09:56] LABS: African American GFR (CKD) >90 (>60 ml/min/1.73 sqM); Anion Gap 3 mmol/L; Blood Urea Nitrogen 25 mg/dL (9-20); Calcium 7.6 mg/dL (8.4-10.2); Carbon Dioxide 32 mmol/L (22-30); Chloride 97 mmol/L (98-107); Glucose 202 mg/dL (74-99); Non-African American GFR(CKD) >90 (>60 ml/min/1.73 sqM); Potassium 4.3 mmol/L (3.5-5.1); Sodium 132 mmol/L (137-145)
[2023-01-11 11:29] LABS: Glucose,Whole Blood 216 mg/dL (70-110)
--- NOTE | 2023-01-11 12:03 | P.PN ---
Subjective Progress Note Date: 01/11/23 I am seeing this patient in new consultation today 01/05/2023 on the selective care unit after the patient had experienced a fall landing on his right hip. Patient is a 72-year-old male with a history very severe COPD. His FEV1 is 19% of predicted, and he is oxygen and steroid dependent. In addition, he has a history of CAD, hypertension, hyperlipidemia, type 2 diabetes, alcoholism. Patient apparently has frequent falls. He did fall, landing on his right hip yesterday, and came into the emergency room. X-ray showed an acute fracture of the right femoral neck. CT of the brain and C-spine without contrast showed no acute intracranial process, and some mild chronic appearing periventricular whit e matter ischemic type changes. On today's evaluation of 01/11/2023, I'm seeing the patient for a follow-up. The patient is known to have COPD and the patient is going to undergo a surgery for has right femoral neck fracture. The patient has advanced COPD and the patient's FEV1 has been in the order of 90% of predicted. His surgery was postponed for a few days until his COPD is further optimized. During this time, the patient was treated with a combination of DuoNeb about treatments aroun d-the-clock and is also on accommodation Perforomist and Pulmicort updrafts and IV Solu-Medrol 60 mg every 6 hours. He is doing better. Is currently on oxygen at 4 L and the patient usually uses 4 L of oxygen even outpatient basis. No chest pain. No shortness of breath at rest. Sodium level is at 132 with a potassium level of 4.3, bicarb level is at 32 with a BUN of 25 and a creatinine of 0.6. Note that the patient was made aware of the increased risk of pulmonary Medications for surgery and the patient and his are both aware of the condition. Objective - Vital Signs Vital signs: Vital Signs Temp 97.5 F L 01/11/23 08:00 Pulse 72 01/11/23 09:06 Resp 19 01/11/23 08:00 BP 175/77 01/11/23 08:00 Pulse Ox 91 L 01/11/23 08:00 FiO2 35 01/08/23 11:25 Intake & Output 01/10/23 01/11/23 01/11/23 18:59 06:59 18:59 Intake Total 1320 Output Total 0481 125 4119 Balance 320 -550 -1200 Weight 87 kg Intake: Oral 1320 Output: Urine 2832 [id number] Other: Voiding Method Indwelling Catheter Indwelling Catheter - Exam No acute distress, much more awake and alert, currently on 6 L nasal cannula. HEENT examination is grossly unremarkable. Neck supple. Full range of motion. No adenopathy thyromegaly or neck vein distention. Cardiovascular examination reveals regular rhythm rate. S1-S2 normal. No S3 or S4. No discernible murmur noted. Heart sounds are distant. Lungs reveal scattered bilateral rhonchi and wheezes. No crackles. Breath sounds equal, but diminished throughout. On 4 L, saturation is 92%. Abdomen soft bowel sounds are heard. No masses or tenderness. Extremities are intact. No cyanosis clubbing or edema. Skin is without rash or lesion. Neurologic examination is unable to be evaluated at this time. - Labs CBC & Chem 7: 01/10/23 10:30 01/11/23 08:46 Labs: Abnormal Lab Results - Last 24 Hours (Table) 01/10/23 01/10/23 01/10/23 Range/Units 10:30 10:30 11:53 RBC 3.65 L (4.30-5.90) m/uL Hgb 10.9 L (13.0-17.5) gm/dL Hct 34.3 L (39.0-53.0) % Lymphocytes # 0.1 L (1.0-4.8) k/uL Sodium 130 L (137-145) mmol/L Chloride 97 L (98-107) mmol/L Carbon Dioxide (22-30) mmol/L BUN 27 H (9-20) mg/dL Creatinine (0.66-1.25) mg/dL Glucose 231 H (74-99) mg/dL POC Glucose (mg/dL) 244 H (70-110) mg/dL Calcium 7.8 L (8.4-10.2) mg/dL 01/10/23 01/10/23 01/11/23 Range/Units 16:42 19:58 05:41 RBC (4.30-5.90) m/uL Hgb (13.0-17.5) gm/dL Hct (39.0-53.0) % Lymphocytes # (1.0-4.8) k/uL Sodium (137-145) mmol/L Chloride (98-107) mmol/L Carbon Dioxide (22-30) mmol/L BUN (9-20) mg/dL Creatinine (0.66-1.25) mg/dL Glucose (74-99) mg/dL POC Glucose (mg/dL) 265 H 245 H 215 H (70-110) mg/dL Calcium (8.4-10.2) mg/dL 01/11/23 Range/Units 08:46 RBC (4.30-5.90) m/uL Hgb (13.0-17.5) gm/dL Hct (39.0-53.0) % Lymphocytes # (1.0-4.8) k/uL Sodium 132 L (137-145) mmol/L Chloride 97 L (98-107) mmol/L Carbon Dioxide 32 H (22-30) mmol/L BUN 25 H (9-20) mg/dL Creatinine 0.60 L (0.66-1.25) mg/dL Glucose 202 H (74-99) mg/dL POC Glucose (mg/dL) (70-110) mg/dL Calcium 7.6 L (8.4-10.2) mg/dL Assessment and Plan Plan: Status post fall, with a resultant right femoral neck fracture. Acute exacerbation of the patient's severe COPD. Severe COPD, with an FEV1 that is 19% of predicted. Acute on chronic hypoxemic and hypercapnic respiratory failure. Coronary artery disease. Hypertension. Dyslipidemia. Type 2 diabetes mellitus. History of alcoholism. Plan This patient in general carries a high risk of developing postoperative pulmonary complications. Nevertheless, surgery will be needed for pain control and mobility the future. Surgery will be done under general anesthesia. There is a high risk of developing respiratory complications including atelectasis, pneumonia, and respiratory failure or insufficiency requiring invasive or noninvasive mechanical ventilation. The patient is made aware. He is currently on 4 L of Oxymizer nasal cannula. His COPD is currently stable and the patient is receiving bronchodilators and IV Solu-Medrol. Patient is nothing by mouth for surgery this afternoon Continue Levemir insulin Continue his last insulin coverage Dilaudid for pain control DVT prophylaxis postop IV fluids with normal saline at rate of 75 mL an hour We'll continue to follow
[2023-01-11] MEDS: SODIUM CHLORIDE 0.9% 1,000 ML IV SCH ×3 (13:29→23:25)
[2023-01-11 13:51] VITALS: BMI 25.2
[2023-01-11] MEDS ORDERED: LACTATED RINGERS 1,000 ML IV ONE (14:28)
[2023-01-11 14:35] LABS: Glucose,Whole Blood 215 mg/dL (70-110)
[2023-01-11] MEDS ORDERED: ROPIVACAINE 5 MG/ML 30 ML VIAL MISCELLANE ONE (14:35)
[2023-01-11] MEDS ORDERED: ONDANSETRON 4 MG/2 ML VIAL ONE (14:57)
[2023-01-11] MEDS ORDERED: ONDANSETRON 4 MG/2 ML VIAL IVP ONE (15:00)
[2023-01-11] MEDS ORDERED: ONDANSETRON 4 MG/2 ML VIAL IVP PRN (15:35)
[2023-01-11] MEDS ORDERED: MAGNESIUM HYDROXIDE 2,400 MG/10 ML CUP PO PRN (15:35)
[2023-01-11] MEDS ORDERED: NALOXONE 0.4 MG/ML 1 ML VIAL IV PRN (15:35)
[2023-01-11] MEDS ORDERED: HYDROmorphone 0.5 MG/0.5 ML SYRINGE IVP PRN ×3 (15:35)
[2023-01-11] MEDS ORDERED: fentaNYL (PF) 50 MCG/ML 2 ML AMP ONE (15:38)
[2023-01-11] MEDS ORDERED: PHENYLEPHRINE-0.9% NACL SYG 1,000 MCG/10 ML SYRINGE ONE (15:38)
[2023-01-11] MEDS ORDERED: MIDAZOLAM 2 MG/2 ML VIAL ONE (15:38)
[2023-01-11] MEDS ORDERED: HYDROcodone/APAP 7.5-325MG 1 EACH TAB PO PRN ×2 (15:39)
[2023-01-11] MEDS ORDERED: ceFAZolin 1,000 MG in SODIUM CHLORIDE 0.9% 1,000 ML IRRIGATION ONE (16:11)
--- NOTE | 2023-01-11 16:45 | P.OP ---
Date of Procedure: 01/11/23 Preoperative Diagnosis: Subcapital fracture right hip Postoperative Diagnosis: Subcapital fracture right hip Procedure(s) Performed: Right hip hemiarthroplasty with a direct anterior approach Implants: Wheeler and nephew Polarstem size 6 standard with a collar [employer]hew tandem unipolar, 50 mm Wheeler [employer]hew tandem unipolar 12/14 taper sleeve, +4 mm All components were press-fit. Anesthesia: spinal Surgeon: Josué Rosas Assembly Associate #1: Melva Fields Estimated Blood Loss (ml): 100 Pathology: none sent Condition: stable Disposition: PACU Indications for Procedure: This is a 72-year-old gentleman that sustained a fracture of his right hip proximally week ago. Due to his poor medical condition he was unable to be cleared for surgery until yesterday. After discussing the surgical nonsurgical treatment options with him and his family at length I've recommended a right hip hemiarthroplasty and informed consent was obtained. Operative Findings: The operative findings are consistent with a subcapital fracture of the right hip Description of Procedure: The patient was seen and evaluated in the preoperative area and the consent was reviewed. The operative site was marked with a skin marker. The patient verified the procedure and operative site. The patient was then brought to the operating room and given preoperative antibiotics intravenously. A spinal anesthetic was administered by the anesthesia department. The patient was then placed on the [place] table with the bony prominences well-padded. The hip area was then prepped with a ChloraPrep solution and draped in the usual sterile fashion. A universal timeout was then performed, which confirmed the patient's name, surgical site, ALLERGIES, and procedure being performed on the consent. Next the incision site was located at 1 cm distal and 4 cm lateral to the anterior superior iliac spine. The skin and subcutaneous tissues were sharply incised. Incision was carefully dissected down to the fascia overlying the tensor fascia erin muscle. This fascia was then incised in line with the muscle fibers. Care was taken to stay laterally in order to avoid injuring the lateral femoral cutaneous nerve. Next, using blunt finger dissection, the tensor fascia erin muscle was dissected off its investing fascia. The muscle was then carefully retracted laterally with a cobra retractor over the lateral neck of the femur. Next, the circumflex vessels were identified and cauterized using the Aquamantis device. The anterior hip capsule was then exposed. The capsule was then opened and an inverted T fashion. The retractors were then placed intracapsularly. The retractors were maintained intracapsular throughout the procedure. The proximal femur fracture was then visualized. A small amount of traction was placed on the leg. The femoral neck was then osteotomized at the appropriate level above the lesser trochanter. A small wedge of bone was then removed from the remaining femoral head. Next, using a corkscrew the femoral head was removed from the acetabulum. On gross visual inspection, the femoral head had minimal loss of articular cartilage. The femoral head was then measured. Attention was then turned to the acetabulum. The acetabulum was visualized and found to have no significant arthrosis. Attention was then directed to the femur. With the aid of the [place] table, the femur was externally rotated to approximately 130, extended, and adducted under the opposite leg. A side hook was then placed under the proximal femur, and the side hook elevator was used to elevate the proximal femur while releasing the capsule. Retractors were then placed. A capsular release was performed, as well as a release of the conjoined tendon, which afforded excellent visualization of the proximal femur. Next, a box osteotome was used to lateralize the proximal femur. A hand screen printer was then used to locate the femoral canal. Sequential broaching was then performed with appropriate size which afforded excellent fixation in the proximal femur. A trial was then placed with appropriate head and neck, and the hip was gently reduced with the aid of the [place] table. Fluoroscopy was then used to check position of the components, as well as to evaluate the leg lengths and offset. The leg lengths and offset were measured as closely as possible to ensure stability of the hip. The hip was then gently dislocated and the trials were then removed. Final implants were then impacted and the hip was again reduced. Final fluoroscopic x-rays confirmed that the components were in anatomic position. The leg lengths and offset were measured and were found to coincide with the trial measurements. The hip was also taken through range of motion, and found to be stable. The hip was then copiously irrigated with antibiotic solution with pulsatile lavage. The hip was then irrigated with Irrisept solution. The fascia was then closed with 2-0 strata fix suture. The subcutaneous tissue was closed with 3-0 Vicryl. The subcuticular tissue was closed with 3-0 strata fix suture. The skin was then closed with Exofin skin glue. After the glue and dried, and Optifoam silver impregnated dressing was applied. The patient was then transferred to the recovery room in stable condition. The clinic assistant DIMAS Person was required due to the complexity of surgery, and the need for skilled surgical instrument technician for positioning, draping, exposure, retraction, and closure of the wound.
--- NOTE | 2023-01-11 19:49 | XR ---
EXAMINATION TYPE: XR Hip Limited RT DATE OF EXAM: 01/11/2023 COMPARISON: None HISTORY: Post right hip repair TECHNIQUE: AP right hip FINDINGS: There is placement of a right femoral prosthesis. Acetabular portion articulates with the a cetabulum. No new fractures are evident. Postsurgical changes are within soft tissues. IMPRESSION: 1. No acute fracture post right hip replacement
--- NOTE | 2023-01-11 20:05 | XR ---
Fluoroscopy INDICATION: Pain FINDINGS: Fluoroscopy time: 29.8 seconds. Total dose area product (DAP) in uGy*m?, mGy*cm? (or similar): 1.1406 Images obtained: 4. IMPRESSIONS: 1. Documentation of fluoroscopy.
[2023-01-11 20:17] LABS: Glucose,Whole Blood 261 mg/dL (70-110)
[2023-01-11] MEDS: SENNOSIDES-DOCUSATE SODIUM 1 EACH TAB PO SCH (21:30)
[2023-01-12] MEDS: HYDROmorphone 1 MG/ML 1 ML SYRINGE IVP PRN ×4 (03:42→23:30)
[2023-01-12] MEDS: methylPREDNISolone SOD SUCCI 125 MG/2 ML VIAL IV SCH (05:47)
[2023-01-12 06:07] LABS: Glucose,Whole Blood 255 mg/dL (70-110)
[2023-01-12] MEDS: INSULIN ASPART (NovoLOG) 100 UNIT/ML VIAL SQ SCH ×7 (06:58→21:14)
--- NOTE | 2023-01-12 07:22 | P.PN ---
Subjective Progress Note Date: 01/12/23 Principal diagnosis: Right hip pain. Femoral neck fracture right hip. Status post hemiarthroplasty right hip. Acute respiratory failure. This is a 72-year-old male who is postoperative day #1 status post hemiarthroplasty of the right hip with direct anterior approach. The patient has been inpatient for one week awaiting surgical intervention for his right hip. He had significant respiratory issues initially. The patient is stable today. He has no new complaints or concerns. Vital signs are stable. He is on 4 L of O2 per nasal cannula with an O2 sat of 95 currently. Objective - Vital Signs Vital signs: Vital Signs Temp 98.1 F 01/12/23 03:47 Pulse 83 01/12/23 03:47 Resp 20 01/12/23 03:47 BP 134/73 01/12/23 03:47 Pulse Ox 95 01/12/23 03:47 FiO2 35 01/08/23 11:25 Intake & Output 01/11/23 01/12/23 01/12/23 18:59 06:59 18:59 Intake Total 701 890 Output Total 1300 800 Balance -599 90 Weight 87 kg Intake: IV 701 Intake, IV Titration 890 Amount Sodium Chloride 0.9% 1, 840 000 ml @ 70 mls/hr IV . [id number] [facility] Rx#:[id number] ceFAZolin 2 gm In Sodium 50 Chloride 0.9% 50 ml @ 100 mls/hr IVPB Q8H [facility] Rx#: [id number] Output: Urine 1200 800 Estimated Blood Loss 100 Other: Voiding Method Indwelling Catheter Indwelling Catheter - Exam This is a pleasant 72-year-old male who is alert and oriented. Exam of the right hip reveals dressing is clean, dry and intact. He has full foot and ankle motion without difficulty or pain. Pedal pulse is +2/4. Neurovascular status to the lower extremities intact. - Labs CBC & Chem 7: 01/10/23 10:30 01/11/23 08:46 Labs: Abnormal Lab Results - Last 24 Hours (Table) 01/11/23 01/11/23 01/11/23 Range/Units 08:46 11:27 14:32 Sodium 132 L (137-145) mmol/L Chloride 97 L (98-107) mmol/L Carbon Dioxide 32 H (22-30) mmol/L BUN 25 H (9-20) mg/dL Creatinine 0.60 L (0.66-1.25) mg/dL Glucose 202 H (74-99) mg/dL POC Glucose (mg/dL) 216 H 215 H (70-110) mg/dL Calcium 7.6 L (8.4-10.2) mg/dL 01/11/23 01/12/23 Range/Units 20:16 06:05 Sodium (137-145) mmol/L Chloride (98-107) mmol/L Carbon Dioxide (22-30) mmol/L BUN (9-20) mg/dL Creatinine (0.66-1.25) mg/dL Glucose (74-99) mg/dL POC Glucose (mg/dL) 261 H 255 H (70-110) mg/dL Calcium (8.4-10.2) mg/dL Assessment and Plan (1) Fall Current Visit: Yes Status: Acute Code(s): W19.XXXA - UNSPECIFIED FALL, INITIAL ENCOUNTER SNOMED Code(s): 1239181 (2) Fracture of femoral neck, right Current Visit: Yes Status: Acute Code(s): S72.001A - FRACTURE OF UNSP PART OF NECK OF RIGHT FEMUR, INIT SNOMED Code(s): 1733255 (3) Respiratory difficulty Current Visit: Yes Status: Acute Code(s): R06.03 - ACUTE RESPIRATORY DISTRESS SNOMED Code(s): 042868874 (4) COPD with acute exacerbation Current Visit: No Status: Acute Code(s): J44.1 - CHRONIC OBSTRUCTIVE PULMONARY DISEASE W (ACUTE) EXACERBATION SNOMED Code(s): 135319328 Plan: The clinical findings are discussed with the patient. We will begin with physical therapy today. Plan discharge to inpatient rehab when cleared medically.
--- NOTE | 2023-01-12 08:14 | FL ---
EXAMINATION TYPE: FL guidance operating room DATE OF EXAM: 01/11/2023 HISTORY: Fluoroscopy time Total dose area product (DAP) in uGy*m?, mGy*cm? (or similar): 1.1406 IMPRESSION: 1. Fluoroscopy time.
[2023-01-12] MEDS: EZETIMIBE 10 MG TAB PO SCH (08:41)
[2023-01-12] MEDS: ATORVASTATIN 20 MG TAB PO SCH (08:41)
[2023-01-12] MEDS: MULTIVITAMINS, THERA 1 EACH TAB PO SCH (08:41)
[2023-01-12] MEDS: THIAMINE 100 MG TAB PO SCH (08:41)
[2023-01-12] MEDS: LOSARTAN 50 MG TAB PO SCH (08:41)
[2023-01-12] MEDS: ASPIRIN 81 MG PO SCH (08:41)
[2023-01-12] MEDS: INSULIN DETEMIR (LEVEMIR) 100 UNIT/ML SYR SQ SCH (08:42)
[2023-01-12] MEDS: PANTOPRAZOLE 40 MG/10 ML VIAL IV SCH (08:42)
[2023-01-12 09:02] LABS: Basophils % (A) 0 %; Eosinophils % (A) 0 %; HCT 32.8 % (39.0-53.0); HGB 10.7 gm/dL (13.0-17.5); Lymphocytes # (A) 0.1 k/uL (1.0-4.8); Lymphocytes % (A) 1 %; MCH 31.2 pg (25.0-35.0); MCHC 32.8 g/dL (31.0-37.0); Mean Platelet Volume 8.4; Monocytes # (A) 0.4 k/uL (0-1.0); Monocytes % (A) 4 %; Neutrophils # (A) 9.8 k/uL (1.3-7.7); Neutrophils % (A) 95 %; Platelet Count 185 k/uL (150-450); RBC 3.45 m/uL (4.30-5.90); WBC 10.4 k/uL (3.8-10.6)
[2023-01-12] MEDS: IPRATROPIUM-ALBUTEROL 3 ML NEB INHALATION PRN ×5 (09:16→21:27)
[2023-01-12] MEDS: FORMOTEROL FUMARATE 20 MCG/2 ML NEBU INHALATION SCH ×2 (09:17→21:28)
[2023-01-12] MEDS: BUDESONIDE 1 MG/2 ML NEBU INHALATION SCH ×2 (09:17→21:27)
[2023-01-12 11:30] LABS: Glucose,Whole Blood 325 mg/dL (70-110)
--- NOTE | 2023-01-12 11:48 | P.PN ---
Subjective Progress Note Date: 01/12/23 I am seeing this patient in new consultation today 01/05/2023 on the selective care unit after the patient had experienced a fall landing on his right hip. Patient is a 72-year-old male with a history very severe COPD. His FEV1 is 19% of predicted, and he is oxygen and steroid dependent. In addition, he has a history of CAD, hypertension, hyperlipidemia, type 2 diabetes, alcoholism. Patient apparently has frequent falls. He did fall, landing on his right hip yesterday, and came into the emergency room. X-ray showed an acute fracture of the right femoral neck. CT of the brain and C-spine without contrast showed no acute intracranial process, and some mild chronic appearing periventricular whit e matter ischemic type changes. On today's evaluation of 01/11/2023, I'm seeing the patient for a follow-up. The patient is known to have COPD and the patient is going to undergo a surgery for has right femoral neck fracture. The patient has advanced COPD and the patient's FEV1 has been in the order of 90% of predicted. His surgery was postponed for a few days until his COPD is further optimized. During this time, the patient was treated with a combination of DuoNeb about treatments aroun d-the-clock and is also on accommodation Perforomist and Pulmicort updrafts and IV Solu-Medrol 60 mg every 6 hours. He is doing better. Is currently on oxygen at 4 L and the patient usually uses 4 L of oxygen even outpatient basis. No chest pain. No shortness of breath at rest. Sodium level is at 132 with a potassium level of 4.3, bicarb level is at 32 with a BUN of 25 and a creatinine of 0.6. Note that the patient was made aware of the increased risk of pulmonary Medications for surgery and the patient and his are both aware of the condition. On today's evaluation of 01/12/2023, the patient's condition remains essentially stable and patient underwent a right hip hemiarthroplasty and this was done under spinal anesthesia. The patient had a subcapital fracture of the right hip. Surgery was a without any major complications and the patient rest or status is stable for now. No significant bronchospasm or wheezing. He is using the 1000 Corks spirometer. Blood work from today shows a WBC count 10.4 with a hemoglobin of 10.7 and a platelet count of 185. The patient is currently on Dilaudid for pain control. The patient on Levemir insulin 25 units daily along with NovoLog 5 units with meals plus a sliding scale coverage. He is on IV Solu-Medrol I'm going to stop the IV Solu-Medrol and start the patient on a prednisone burst taper. He will also need DVT prophylaxis and the patient will be started on Lovenox subcu for DVT prophylaxis. Objective - Vital Signs Vital signs: Vital Signs Temp 98.1 F 01/12/23 03:47 Pulse 96 01/12/23 09:47 Resp 20 01/12/23 03:47 BP 134/73 01/12/23 03:47 Pulse Ox 95 01/12/23 03:47 FiO2 35 01/08/23 11:25 Intake & Output 01/11/23 01/12/23 01/12/23 18:59 06:59 18:59 Intake Total 701 890 180 Output Total 1300 800 Balance -599 90 180 Weight 87 kg Intake: IV 701 Intake, IV Titration 890 Amount Sodium Chloride 0.9% 1, 840 000 ml @ 70 mls/hr IV . [id number] [facility] Rx#:[id number] ceFAZolin 2 gm In Sodium 50 Chloride 0.9% 50 ml @ 100 mls/hr IVPB Q8H [facility] Rx#: [id number] Oral 180 Output: Urine 1200 800 Estimated Blood Loss 100 Other: Voiding Method Indwelling Catheter Indwelling Catheter - Exam No acute distress, much more awake and alert, currently on 4 L of oxygen by nasal cannula with a pulse ox above 90% HEENT examination is grossly unremarkable. Neck supple. Full range of motion. No adenopathy thyromegaly or neck vein distention. Cardiovascular examination reveals regular rhythm rate. S1-S2 normal. No S3 or S4. No discernible murmur noted. Heart sounds are distant. Lungs reveal scattered bilateral rhonchi and wheezes. No crackles. Breath sounds equal, but diminished throughout. Abdomen soft bowel sounds are heard. No masses or tenderness. Extremities are intact. No cyanosis clubbing or edema. The surgical wound over the right hip area as dry and clean and intact at this point in time. Skin is without rash or lesion. Neurologic examination is unable to be evaluated at this time. - Labs CBC & Chem 7: 01/12/23 08:39 01/11/23 08:46 Labs: Abnormal Lab Results - Last 24 Hours (Table) 01/11/23 01/11/23 01/11/23 Range/Units 08:46 11:27 14:32 RBC (4.30-5.90) m/uL Hgb (13.0-17.5) gm/dL Hct (39.0-53.0) % Neutrophils # (1.3-7.7) k/uL Lymphocytes # (1.0-4.8) k/uL Sodium 132 L (137-145) mmol/L Chloride 97 L (98-107) mmol/L Carbon Dioxide 32 H (22-30) mmol/L BUN 25 H (9-20) mg/dL Creatinine 0.60 L (0.66-1.25) mg/dL Glucose 202 H (74-99) mg/dL POC Glucose (mg/dL) 216 H 215 H (70-110) mg/dL Calcium 7.6 L (8.4-10.2) mg/dL 01/11/23 01/12/23 01/12/23 Range/Units 20:16 06:05 08:39 RBC 3.45 L (4.30-5.90) m/uL Hgb 10.7 L (13.0-17.5) gm/dL Hct 32.8 L (39.0-53.0) % Neutrophils # 9.8 H (1.3-7.7) k/uL Lymphocytes # 0.1 L (1.0-4.8) k/uL Sodium (137-145) mmol/L Chloride (98-107) mmol/L Carbon Dioxide (22-30) mmol/L BUN (9-20) mg/dL Creatinine (0.66-1.25) mg/dL Glucose (74-99) mg/dL POC Glucose (mg/dL) 261 H 255 H (70-110) mg/dL Calcium (8.4-10.2) mg/dL Assessment and Plan Plan: Status post fall, with a resultant right femoral neck fracture. The patient is post right hip hemiarthroplasty and the patient is currently postop day #1. Surgery was done under spinal anesthesia. Acute exacerbation of the patient's severe COPD. Severe COPD, with an FEV1 that is 19% of predicted. Acute on chronic hypoxemic and hypercapnic respiratory failure. Coronary artery disease. Hypertension. Dyslipidemia. Type 2 diabetes mellitus. History of alcoholism. Plan Continue routine postoperative care Pain control with Dilaudid Lovenox portably prophylaxis Discontinue the IV Solu-Medrol Start The patient a prednisone burst taper Continue Levemir insulin Continue his last insulin coverage Dilaudid for pain control IV fluids with normal saline at rate of 75 mL an hour We'll continue to follow
--- NOTE | 2023-01-12 12:01 | P.PN ---
Subjective Principal diagnosis: Hip fracture fracture with COPD 72-year-old white male with known history diabetes also is him who essentially h ad right hip fracture. He was able to stabilize for surgical repair and is now postop day #1 doing well. Pain is nominal. We had a long discussion regarding sobriety Objective - Vital Signs Vital signs: Vital Signs Temp 97.6 F 01/12/23 08:00 Pulse 93 01/12/23 11:57 Resp 18 01/12/23 08:00 BP 138/74 01/12/23 08:00 Pulse Ox 92 L 01/12/23 08:00 FiO2 35 01/08/23 11:25 Intake & Output 01/11/23 01/12/23 01/12/23 18:59 06:59 18:59 Intake Total 701 890 180 Output Total 1300 800 Balance -599 90 180 Weight 87 kg Intake: IV 701 Intake, IV Titration 890 Amount Sodium Chloride 0.9% 1, 840 000 ml @ 70 mls/hr IV . [id number] [facility] Rx#:[id number] ceFAZolin 2 gm In Sodium 50 Chloride 0.9% 50 ml @ 100 mls/hr IVPB Q8H [facility] Rx#: [id number] Oral 180 Output: Urine 1200 800 Estimated Blood Loss 100 Other: Voiding Method Indwelling Catheter Indwelling Catheter Indwelling Catheter - Constitutional General appearance: Present: average body habitus, cooperative - EENT Eyes: Absent: abnormal pupil - Neck Neck: Absent: lymphadenopathy - Respiratory Respiratory: bilateral: diminished - Cardiovascular Rhythm: regular Heart sounds: normal: S1, S2 Abnormal Heart Sounds: Absent: S3 Gallop - Gastrointestinal General gastrointestinal: Present: soft. Absent: tenderness - Integumentary Integumentary Comment(s): Moving right foot appropriately. - Labs CBC & Chem 7: 01/12/23 08:39 01/11/23 08:46 Labs: Abnormal Lab Results - Last 24 Hours (Table) 01/11/23 01/11/23 01/12/23 Range/Units 14:32 20:16 06:05 RBC (4.30-5.90) m/uL Hgb (13.0-17.5) gm/dL Hct (39.0-53.0) % Neutrophils # (1.3-7.7) k/uL Lymphocytes # (1.0-4.8) k/uL POC Glucose (mg/dL) 215 H 261 H 255 H (70-110) mg/dL 01/12/23 01/12/23 Range/Units 08:39 11:29 RBC 3.45 L (4.30-5.90) m/uL Hgb 10.7 L (13.0-17.5) gm/dL Hct 32.8 L (39.0-53.0) % Neutrophils # 9.8 H (1.3-7.7) k/uL Lymphocytes # 0.1 L (1.0-4.8) k/uL POC Glucose (mg/dL) 325 H (70-110) mg/dL Assessment and Plan (1) Alcoholism Current Visit: Yes Status: Acute Code(s): F10.20 - ALCOHOL DEPENDENCE, UNCOMPLICATED SNOMED Code(s): 0963201 (2) Fall Current Visit: Yes Status: Acute Code(s): W19.XXXA - UNSPECIFIED FALL, INITIAL ENCOUNTER SNOMED Code(s): 7534596 (3) Fracture of femoral neck, right Current Visit: Yes Status: Acute Code(s): S72.001A - FRACTURE OF UNSP PART OF NECK OF RIGHT FEMUR, INIT SNOMED Code(s): 2364970 (4) COPD with acute exacerbation Current Visit: No Status: Acute Code(s): J44.1 - CHRONIC OBSTRUCTIVE PULMONARY DISEASE W (ACUTE) EXACERBATION SNOMED Code(s): 034001110 (5) Diabetes Current Visit: No Status: Acute Code(s): E11.9 - TYPE 2 DIABETES MELLITUS WITHOUT COMPLICATIONS SNOMED Code(s): 83031299 (6) Smoker Current Visit: No Status: Acute Code(s): F17.200 - NICOTINE DEPENDENCE, UNSPECIFIED, UNCOMPLICATED SNOMED Code(s): 46446108 Plan: Improved COPD to baseline. Postop day #1 for hip repair. Check CBC and CMP in a.m.
[2023-01-12] MEDS: SODIUM CHLORIDE 0.9% 1,000 ML IV SCH (12:03)
[2023-01-12 16:27] LABS: Glucose,Whole Blood 275 mg/dL (70-110)
[2023-01-12 20:22] LABS: Glucose,Whole Blood 172 mg/dL (70-110)
[2023-01-12] MEDS: SENNOSIDES-DOCUSATE SODIUM 1 EACH TAB PO SCH (21:14)
[2023-01-13 06:05] LABS: Glucose,Whole Blood 53 mg/dL (70-110)
[2023-01-13] MEDS: INSULIN ASPART (NovoLOG) 100 UNIT/ML VIAL SQ SCH ×4 (06:09→12:21)
[2023-01-13 06:20] LABS: Glucose,Whole Blood 71 mg/dL (70-110)
[2023-01-13] MEDS: HYDROmorphone 1 MG/ML 1 ML SYRINGE IVP PRN (06:40)
[2023-01-13] MEDS: SODIUM CHLORIDE 0.9% 1,000 ML IV SCH (06:44)
[2023-01-13] MEDS: FORMOTEROL FUMARATE 20 MCG/2 ML NEBU INHALATION SCH (07:53)
[2023-01-13] MEDS: IPRATROPIUM-ALBUTEROL 3 ML NEB INHALATION PRN ×2 (07:53→11:27)
[2023-01-13] MEDS: BUDESONIDE 1 MG/2 ML NEBU INHALATION SCH (07:54)
--- NOTE | 2023-01-13 08:33 | P.DS ---
Providers Date of admission: 01/04/23 19:19 Attending physician: Sadiq Frausto Consults: 01/04/23 19:15 Consult Physician Urgent Consulting Provider: Sadiq Frausto Consult Reason/Comments: Medical clearance and care Do you want consulting provider notified?: Yes 01/05/23 00:56 Consult Physician Urgent Consulting Provider: Abdulaziz Edmondson Consult Reason/Comments: your patient, states low lung function, Increased O2 needs Do you want consulting provider notified?: Yes, Notify in am Primary care physician: Sadiq Frausto - Discharge Diagnosis(es) (1) Alcoholism Current Visit: Yes Status: Acute (2) Fall Current Visit: Yes Status: Acute (3) Fracture of femoral neck, right Current Visit: Yes Status: Acute (4) COPD with acute exacerbation Current Visit: No Status: Acute (5) Diabetes Current Visit: No Status: Acute (6) Smoker Current Visit: No Status: Acute Hospital Course: This is a 72-year-old male who was originally admitted after a fall which resulted in a right hip fracture. Patient's breathing was not stable enough for surgery, he was treated with IV steroids and BiPAP and ultimately was back to his baseline maintained on 4 L of oxygen via nasal cannula. Dr. Rosas performed a right hip hemiarthroplasty with a direct anterior approach on 01/11/2023 and patient tolerated it well. Patient continues to do well, lungs are at baseline. He is eating and drinking. Plan for discharge to rehab. Patient seen and evaluated by nurse practitioner, physician in agreement with plan Plan - Discharge Summary Discharge Rx Participant: Yes New Discharge Prescriptions: New predniSONE [Deltasone] 10 mg PO DAILY #30 tab Continue Albuterol Inhaler [Ventolin Hfa Inhaler] 1 - 2 puff INHALATION RT-Q4H PRN PRN Reason: Shortness Of Breath Insulin Degludec [Tresiba Flextouch U-100 Pen] 25 units SQ DAILY Budesonide/Formoterol Fumarate [Symbicort 160-4.5 Mcg Inhaler] 2 puff INHALATION RT-BID Simvastatin [Zocor] 40 mg PO DAILY Aspirin EC [Ecotrin Low Dose] 81 mg PO DAILY Albuterol Nebulized [Ventolin Nebulized] 2.5 mg INHALATION RT-QID PRN PRN Reason: Shortness Of Breath Losartan Potassium 100 mg PO DAILY Tiotropium 2.5 Mcg/Puff [Spiriva Respimat 2.5 Mcg] 1 puff INHALATION RT-DAILY Ezetimibe [Zetia] 10 mg PO DAILY Discontinued predniSONE 5 mg PO DAILY Discharge Medication List Albuterol Inhaler [Ventolin Hfa Inhaler] 1 - 2 puff INHALATION RT-Q4H PRN 05/07/19 [History] Albuterol Nebulized [Ventolin Nebulized] 2.5 mg INHALATION RT-QID PRN 05/07/19 [History] Aspirin EC [Ecotrin Low Dose] 81 mg PO DAILY 05/07/19 [History] Budesonide/Formoterol Fumarate [Symbicort 160-4.5 Mcg Inhaler] 2 puff INHALATION RT-BID 05/07/19 [History] Insulin Degludec [Tresiba Flextouch U-100 Pen] 25 units SQ DAILY 05/07/19 [History] Simvastatin [Zocor] 40 mg PO DAILY 05/07/19 [History] Ezetimibe [Zetia] 10 mg PO DAILY 01/04/23 [History] Losartan Potassium 100 mg PO DAILY 01/04/23 [History] Tiotropium 2.5 Mcg/Puff [Spiriva Respimat 2.5 Mcg] 1 puff INHALATION RT-DAILY 01/04/23 [History] predniSONE [Deltasone] 10 mg PO DAILY #30 tab 01/13/23 [Rx] Follow up Appointment(s)/Referral(s): Sadiq Frausto MD [Primary Care Provider] - 1-2 days Josué Rosas DO [Doctor of Osteopathic Medicine] - 2 Weeks Activity/Diet/Wound Care/Special Instructions: Weightbearing as tolerated with walker. Leave dressing intact. Dressing may be removed by home care nurse or by patient in 7 days. Then change dressing twice daily until follow up. May shower with initial dressing intact and after removal. If dressing become saturated, please remove. Recommend use of compression stockings daily until follow up to help prevent swelling and blood clots. May remove at night before sleeping. Please follow-up with [facility] in 2 weeks and call with any questions or concerns, . Discharge/Stand Alone Forms: AA Meetings [place], Outpatient Counseling, Inp Substance Abuse Facilities Discharge Disposition: TRANSFER TO SNF/ECF
[2023-01-13 08:55] VITALS: BP 142/66; RESP 14; TEMP 98.2
[2023-01-13] MEDS ORDERED: ENOXAPARIN 40 MG/0.4 ML SYRINGE SQ SCH (09:00)
[2023-01-13] MEDS ORDERED: predniSONE 20 MG TAB PO SCH (09:00)
[2023-01-13] MEDS: LOSARTAN 50 MG TAB PO SCH (09:09)
[2023-01-13] MEDS: PANTOPRAZOLE 40 MG/10 ML VIAL IV SCH (09:09)
[2023-01-13] MEDS: INSULIN DETEMIR (LEVEMIR) 100 UNIT/ML SYR SQ SCH (09:09)
[2023-01-13] MEDS: EZETIMIBE 10 MG TAB PO SCH (09:09)
[2023-01-13] MEDS: ATORVASTATIN 20 MG TAB PO SCH (09:09)
[2023-01-13] MEDS: MULTIVITAMINS, THERA 1 EACH TAB PO SCH (09:09)
[2023-01-13] MEDS: ASPIRIN 81 MG PO SCH (09:10)
[2023-01-13] MEDS: THIAMINE 100 MG TAB PO SCH (09:10)
[2023-01-13] MEDS ORDERED: MAGNESIUM HYDROXIDE 2,400 MG/10 ML CUP PO PRN (09:13)
[2023-01-13 09:14] LABS: HCT 32.8 % (39.0-53.0); HGB 10.8 gm/dL (13.0-17.5); MCH 30.3 pg (25.0-35.0); MCHC 32.8 g/dL (31.0-37.0); MCV 92.4 fL (80.0-100.0); Mean Platelet Volume 8.7; Platelet Count 191 k/uL (150-450); RBC 3.55 m/uL (4.30-5.90); RDW 13.5 % (11.5-15.5); WBC 10.9 k/uL (3.8-10.6)
[2023-01-13 09:36] LABS: ALT 31 U/L (4-49); AST 28 U/L (17-59); African American GFR (CKD) >90 (>60 ml/min/1.73 sqM); Albumin 2.6 g/dL (3.5-5.0); Alkaline Phosphatase 55 U/L (38-126); Anion Gap 3 mmol/L; Blood Urea Nitrogen 34 mg/dL (9-20); Calcium 7.8 mg/dL (8.4-10.2); Carbon Dioxide 30 mmol/L (22-30); Chloride 96 mmol/L (98-107); Glucose 89 mg/dL (74-99); Non-African American GFR(CKD) >90 (>60 ml/min/1.73 sqM); Potassium 4.6 mmol/L (3.5-5.1); Sodium 129 mmol/L (137-145); Total Protein 4.7 g/dL (6.3-8.2)
[2023-01-13] MEDS ORDERED: HYDROcodone/APAP 7.5-325MG 1 EACH TAB PO PRN (10:46)
--- NOTE | 2023-01-13 11:07 | P.PN ---
Subjective Progress Note Date: 01/13/23 This is a 72-year-old male who is status post right hip hemiarthroplasty. This is postoperative day #2 and patient is seen and evaluated at bedside today. Patient states he has worked with physical therapy and has had some difficulty with mobilizing. Patient plans to discharge to rehab. Patient denies any new complaints today. Objective - Vital Signs Vital signs: Vital Signs Temp 98.2 F 01/13/23 08:00 Pulse 94 01/13/23 08:13 Resp 14 01/13/23 08:00 BP 142/66 01/13/23 08:00 Pulse Ox 92 L 01/13/23 08:00 FiO2 35 01/08/23 11:25 Intake & Output 01/12/23 01/13/23 01/13/23 18:59 06:59 18:59 Intake Total 360 240 240 Output Total 1500 280 Balance -1140 -40 240 Intake: Intake, IV Titration 240 Amount Sodium Chloride 0.9% 1, 240 000 ml @ 20 mls/hr IV . Q24H [facility] Rx#:[id number] Oral 360 240 Output: Urine 1500 280 Other: Voiding Method Indwelling Catheter Indwelling Catheter - Exam Vital signs are stable. Patient is in no acute distress and is alert and orien cesilia 3. Calf is soft and nontender to palpation. Dressing is clean, dry, and intact. Patient has full foot and ankle motion without pain or difficulty. Sensation intact. Neurovascular status and circulatory status are intact. - Labs CBC & Chem 7: 01/13/23 08:40 01/13/23 08:40 Labs: Abnormal Lab Results - Last 24 Hours (Table) 01/12/23 01/12/23 01/12/23 Range/Units 11:29 16:25 20:21 WBC (3.8-10.6) k/uL RBC (4.30-5.90) m/uL Hgb (13.0-17.5) gm/dL Hct (39.0-53.0) % Sodium (137-145) mmol/L Chloride (98-107) mmol/L BUN (9-20) mg/dL POC Glucose (mg/dL) 325 H 275 H 172 H (70-110) mg/dL Calcium (8.4-10.2) mg/dL Total Protein (6.3-8.2) g/dL Albumin (3.5-5.0) g/dL 01/13/23 01/13/23 01/13/23 Range/Units 06:03 08:40 08:40 WBC 10.9 H (3.8-10.6) k/uL RBC 3.55 L (4.30-5.90) m/uL Hgb 10.8 L (13.0-17.5) gm/dL Hct 32.8 L (39.0-53.0) % Sodium 129 L (137-145) mmol/L Chloride 96 L (98-107) mmol/L BUN 34 H (9-20) mg/dL POC Glucose (mg/dL) 53 L (70-110) mg/dL Calcium 7.8 L (8.4-10.2) mg/dL Total Protein 4.7 L (6.3-8.2) g/dL Albumin 2.6 L (3.5-5.0) g/dL Assessment and Plan Assessment: Status post right hip hemiarthroplasty. (1) S/P hip hemiarthroplasty Current Visit: Yes Status: Acute Code(s): Z96.649 - PRESENCE OF UNSPECIFIED ARTIFICIAL HIP JOINT SNOMED Code(s): 617040623 (2) Fall Current Visit: Yes Status: Acute Code(s): W19.XXXA - UNSPECIFIED FALL, INITIAL ENCOUNTER SNOMED Code(s): 1202242 (3) Fracture of femoral neck, right Current Visit: Yes Status: Acute Code(s): S72.001A - FRACTURE OF UNSP PART OF NECK OF RIGHT FEMUR, INIT SNOMED Code(s): 0331755 Plan: Continue routine postop care. Continue anticoagulation and pain control per internal medicine. Weightbearing as tolerated with a walker. Leave dressing in place for 7 days. Patient plans to discharge to rehab today.
[2023-01-13 11:41] VITALS: PULSE 84
[2023-01-13 11:53] LABS: Glucose,Whole Blood 139 mg/dL (70-110)
--- NOTE | 2023-01-13 15:25 | P.PN ---
Subjective Progress Note Date: 01/13/23 I am seeing this patient in new consultation today 01/05/2023 on the selective care unit after the patient had experienced a fall landing on his right hip. Patient is a 72-year-old male with a history very severe COPD. His FEV1 is 19% of predicted, and he is oxygen and steroid dependent. In addition, he has a history of CAD, hypertension, hyperlipidemia, type 2 diabetes, alcoholism. Patient apparently has frequent falls. He did fall, landing on his right hip yesterday, and came into the emergency room. X-ray showed an acute fracture of the right femoral neck. CT of the brain and C-spine without contrast showed no acute intracranial process, and some mild chronic appearing periventricular whit e matter ischemic type changes. On today's evaluation of 01/11/2023, I'm seeing the patient for a follow-up. The patient is known to have COPD and the patient is going to undergo a surgery for has right femoral neck fracture. The patient has advanced COPD and the patient's FEV1 has been in the order of 90% of predicted. His surgery was postponed for a few days until his COPD is further optimized. During this time, the patient was treated with a combination of DuoNeb about treatments aroun d-the-clock and is also on accommodation Perforomist and Pulmicort updrafts and IV Solu-Medrol 60 mg every 6 hours. He is doing better. Is currently on oxygen at 4 L and the patient usually uses 4 L of oxygen even outpatient basis. No chest pain. No shortness of breath at rest. Sodium level is at 132 with a potassium level of 4.3, bicarb level is at 32 with a BUN of 25 and a creatinine of 0.6. Note that the patient was made aware of the increased risk of pulmonary Medications for surgery and the patient and his are both aware of the condition. On today's evaluation of 01/12/2023, the patient's condition remains essentially stable and patient underwent a right hip hemiarthroplasty and this was done under spinal anesthesia. The patient had a subcapital fracture of the right hip. Surgery was a without any major complications and the patient rest or status is stable for now. No significant bronchospasm or wheezing. He is using the [employer] spirometer. Blood work from today shows a WBC count 10.4 with a hemoglobin of 10.7 and a platelet count of 185. The patient is currently on Dilaudid for pain control. The patient on Levemir insulin 25 units daily along with NovoLog 5 units with meals plus a sliding scale coverage. He is on IV Solu-Medrol I'm going to stop the IV Solu-Medrol and start the patient on a prednisone burst taper. He will also need DVT prophylaxis and the patient will be started on Lovenox subcu for DVT prophylaxis. On today's evaluation of 01/13/2023, the patient is doing well. The patient is post right hemiarthroplasty and this was done 2 days ago and the patient is currently postop day #2. Hasn't been able to ambulate yet as the patient is still quite weak. Nevertheless, the patient has no major respiratory difficulties. He was taken off the IV Solu-Medrol started a prednisone burst taper. He is using incentive spirometer. No chest pain. No angina. No palpitations. No other significant events over the past 24 hours.Blood work f rom today shows a WBC count of 10.9 with a hemoglobin of 10.8 and a platelet count of 191. Sodium level is at 129. BUN is at 34 with a creatinine of 0.7. Glucose is 139. Albumin level is at 2.6. Objective - Vital Signs Vital signs: Vital Signs Temp 98.2 F 01/13/23 08:00 Pulse 94 01/13/23 08:13 Resp 14 01/13/23 08:00 BP 142/66 01/13/23 08:00 Pulse Ox 92 L 01/13/23 08:00 FiO2 35 01/08/23 11:25 Intake & Output 01/12/23 01/13/23 01/13/23 18:59 06:59 18:59 Intake Total 360 240 240 Output Total 1500 280 Balance -1140 -40 240 Intake: Intake, IV Titration 240 Amount Sodium Chloride 0.9% 1, 240 000 ml @ 20 mls/hr IV . Q24H [facility] Rx#:[id number] Oral 360 240 Output: Urine 1500 280 Other: Voiding Method Indwelling Catheter Indwelling Catheter - Exam No acute distress, much more awake and alert, currently on 4 L of oxygen by nasal cannula with a pulse ox above 90% HEENT examination is grossly unremarkable. Neck supple. Full range of motion. No adenopathy thyromegaly or neck vein distention. Cardiovascular examination reveals regular rhythm rate. S1-S2 normal. No S3 or S4. No discernible murmur noted. Heart sounds are distant. Lungs reveal scattered bilateral rhonchi and wheezes. No crackles. Breath sounds equal, but diminished throughout. Abdomen soft bowel sounds are heard. No masses or tenderness. Extremities are intact. No cyanosis clubbing or edema. The surgical wound over the right hip area as dry and clean and intact at this point in time. Skin is without rash or lesion. Neurologic examination is unable to be evaluated at this time. - Labs CBC & Chem 7: 01/13/23 08:40 01/13/23 08:40 Labs: Abnormal Lab Results - Last 24 Hours (Table) 01/12/23 01/12/23 01/12/23 Range/Units 11:29 16:25 20:21 WBC (3.8-10.6) k/uL RBC (4.30-5.90) m/uL Hgb (13.0-17.5) gm/dL Hct (39.0-53.0) % Sodium (137-145) mmol/L Chloride (98-107) mmol/L BUN (9-20) mg/dL POC Glucose (mg/dL) 325 H 275 H 172 H (70-110) mg/dL Calcium (8.4-10.2) mg/dL Total Protein (6.3-8.2) g/dL Albumin (3.5-5.0) g/dL 01/13/23 01/13/23 01/13/23 Range/Units 06:03 08:40 08:40 WBC 10.9 H (3.8-10.6) k/uL RBC 3.55 L (4.30-5.90) m/uL Hgb 10.8 L (13.0-17.5) gm/dL Hct 32.8 L (39.0-53.0) % Sodium 129 L (137-145) mmol/L Chloride 96 L (98-107) mmol/L BUN 34 H (9-20) mg/dL POC Glucose (mg/dL) 53 L (70-110) mg/dL Calcium 7.8 L (8.4-10.2) mg/dL Total Protein 4.7 L (6.3-8.2) g/dL Albumin 2.6 L (3.5-5.0) g/dL Assessment and Plan Plan: Status post fall, with a resultant right femoral neck fracture. The patient is post right hip hemiarthroplasty and the patient is currently postop day #2 Surgery was done under spinal anesthesia. Acute exacerbation of the patient's severe COPD. Severe COPD, with an FEV1 that is 19% of predicted. Acute on chronic hypoxemic and hypercapnic respiratory failure. Coronary artery disease. Hypertension. Dyslipidemia. Type 2 diabetes mellitus. History of alcoholism. Plan Overall pulmonary status is stable Increase mobility Pain control with Dilaudid Lovenox portably prophylaxis prednisone burst taper Continue Levemir insulin Continue his last insulin coverage Dilaudid for pain control IV fluids with normal saline at rate of 75 mL an hour We'll continue to follow Discharge planning is in progress, possible discharge to ECF
== END 2023-01-13 14:40 | DRG 521 ==
LOC: EC 16:39 → 3SCARD 19:19
PROVIDERS: ADMIT Family Medicine; ATTEND Family Medicine
PROC: 5A09457 Assistance with Respiratory Ventilation, 24-96 Consecutive Hours, Continuous Positive Airway Pressure (ICD-10-PCS; 2023-01-05)
PROC: 0SRR01A Replacement of Right Hip Joint, Femoral Surface with Metal Synthetic Substitute, Uncemented, Open Approach (ICD-10-PCS; principal; 2023-01-11 07:30)
DX: S72.011A Unspecified intracapsular fracture of right femur, initial encounter for closed fracture (principal); J96.21 Acute and chronic respiratory failure with hypoxia; J96.22 Acute and chronic respiratory failure with hypercapnia; E87.29 Other acidosis; J44.1 Chronic obstructive pulmonary disease with (acute) exacerbation; E87.1 Hypo-osmolality and hyponatremia; E11.9 Type 2 diabetes mellitus without complications; F10.20 Alcohol dependence, uncomplicated; Z79.4 Long term (current) use of insulin; Z20.822 Contact with and (suspected) exposure to COVID-19; I10 Essential (primary) hypertension; Y90.1 Blood alcohol level of 20-39 mg/100 ml; E78.5 Hyperlipidemia, unspecified; I25.10 Atherosclerotic heart disease of native coronary artery without angina pectoris; R29.6 Repeated falls; W19.XXXA Unspecified fall, initial encounter; Y92.009 Unspecified place in unspecified non-institutional (private) residence as the place of occurrence of the external cause; I25.2 Old myocardial infarction; Z53.20 Procedure and treatment not carried out because of patient's decision for unspecified reasons; Z79.82 Long term (current) use of aspirin; Z79.51 Long term (current) use of inhaled steroids; Z79.52 Long term (current) use of systemic steroids; Z79.899 Other long term (current) drug therapy; Z99.81 Dependence on supplemental oxygen; Z95.5 Presence of coronary angioplasty implant and graft; Z87.891 Personal history of nicotine dependence; Z71.41 Alcohol abuse counseling and surveillance of alcoholic; Z71.3 Dietary counseling and surveillance
CPT/HCPCS: 36415; 36600; 70450; 71045; 72125; 73501; 73502; 80048; 80053; 80320; 82805; 83036; 83605; 83735; 84484; 85025; 85027; 85610; 85730; 87502; 93005; 94640; 94660; 94760; 96374; 96376; 99285

== ENCOUNTER → 2023-02-17 | Outpatient (CLI) | payer MEDICARE, OTHER ==
--- NOTE | 2023-02-17 15:34 | CT ---
EXAMINATION TYPE: CT angio chest CT DLP: 276.9 mGycm, Automated exposure control for dose reduction was used. DATE OF EXAM: 02/17/2023 3:24 PM COMPARISON: CT chest 05/08/2019 CLINICAL INDICATION:Male, 72 years old with history of R09.02; SOB TECHNIQUE/CONTRAST: CTA scan of the thorax is performed with IV Contrast, patient injected with 70cc mL of Isovue 370, pu lmonary embolism protocol. MIP images are created and reviewed. FINDINGS: Pulmonary Artery: There is no evidence for a filling defect within the pulmonary vasculature to sugge st acute pulmonary embolism. The pulmonary artery is of normal size. Lungs/Pleura: No pleural effusion. Bilateral lower lobe patchy consolidation with left greater than r ight. Mild centrilobular emphysematous changes. No pneumothorax. Right midlung 7 mm pulmonary nodule (series 5, image 61). Stable from 2019 and considered benign. No new or enlarging pulmonary nodules. Airway: Large airways are patent. Heart: Mild cardiomegaly. No pericardial effusion. Mild coronary arterial calcification. Vasculature: No evidence of aortic aneurysm. Atherosclerotic calcification of the aorta Mediastinum: No evidence of adenopathy. Musculoskeletal: Removal left posterior 10th rib fracture. Mild S-shaped sclerotic curvature of the t horacolumbar spine. Chronic appearing anterior wedge compression deformity is of the T6, T7, and T9 v ertebral bodies with approximately 25% height loss and retropulsion. Soft Tissues: Unremarkable. Lower neck: No significant findings. Upper Abdomen: No significant findings. IMPRESSION: 1. No evidence of pulmonary embolism. 2. Bilateral low patchy consolidation with left greater than right suspicious for pneumonia. Continue d follow-up is recommended. 3. Chronic appearing anterior wedge compression deformities of the T6, T7 and T9 vertebral bodies. Co rrelate with point tenderness.
== END | disposition home or self-care (01) ==
LOC: RADCTMAIN 14:10
PROVIDERS: ATTEND Family Medicine
DX: M48.54XA Collapsed vertebra, not elsewhere classified, thoracic region, initial encounter for fracture (principal); R09.02 Hypoxemia; R91.8 Other nonspecific abnormal finding of lung field; R06.00 Dyspnea, unspecified
CPT/HCPCS: 71275; Q9967